=== PATIENT | female | born 1990 | race Caucasian/White ===

== ENCOUNTER 2016-05-14 15:33 | Emergency (ER) | payer OTHER ==
[~2016-05-14 15:33] MED LIST: ANUS2.5C2 TOP; COLA100C PO; DEPO150I IM; DICY10IN2 IM; DICY10SO PO; EFFE150C PO; GABA600T PO; HYDR25TAB PO; MILKSUS PO; MOTR200T44 PO; TYLE325T5 PO; ZANA4CAP PO; ZONI25CA2 PO
[2016-05-14 17:51] LABS: BASO % 0.3 % (0.0-1.0); EOS # 0.2 K/mm3 (0.0-0.50); EOS % 2.1 % (0.0-3.0); LARGE UNSTAINED CELL # 0.1 K/mm3 (0.0-0.4); LARGE UNSTAINED CELL % 0.5 % (0.0-4.0); LYMPH # 0.6 K/mm3 (1.5-6.5); MEAN CORPUSCULAR HEMOGLOBIN 31.6 pg (27.0-33.0); MEAN CORPUSCULAR HGB CONC 34.6 g/dl (32.0-36.5); MEAN CORPUSCULAR VOLUME 91.3 fl (80.0-96.0); MONO # 0.4 K/mm3 (0.0-0.8); MONO % 4.3 % (0.0-5.0); NEUTROPHILS # 8.7 K/mm3 (1.8-7.7); NEUTROPHILS % 86.9 % (36.0-66.0); PLATELET COUNT, AUTOMATED 195 k/mm3 (150-450)
[2016-05-14] MEDS ORDERED: ONDANSETRON 4MG/2ML VIAL (J2405) As Ordered ONE (17:54)
[2016-05-14] MEDS ORDERED: PANTOPRAZOLE 40MG INJ (PROTONIX) (C9113) As Ordered ONE (17:54)
[2016-05-14 18:17] LABS: ALBUMIN 3.8 GM/DL (3.2-5.2); ALKALINE PHOSPHATASE 78 U/L (45-117); ALT/SGPT 27 U/L (12-78); AMYLASE 27 U/L (25-115); ANION GAP 8 MEQ/L (8-16); AST/SGOT 11 U/L (15-37); BILIRUBIN,DIRECT 0.2 MG/DL (0.0-0.2); BILIRUBIN,TOTAL 1.5 MG/DL (0.2-1.0); BLOOD UREA NITROGEN 12 MG/DL (7-18); CARBON DIOXIDE LEVEL 25 MEQ/L (21-32); CHLORIDE LEVEL 108 MEQ/L (98-107); CREATININE FOR GFR 0.85 MG/DL (0.55-1.02); GLOMERULAR FILTRATION RATE > 60.0 (>60); GLUCOSE, FASTING 96 MG/DL (70-105); POTASSIUM SERUM 3.9 MEQ/L (3.5-5.1); SODIUM LEVEL 141 MEQ/L (136-145); TOTAL PROTEIN 7.6 GM/DL (6.4-8.2)
[2016-05-14] MEDS ORDERED: MORPHINE 2 MG/ML 1ML SYRINGE As Ordered ONE (19:13)
[2016-05-14 20:13] LABS: CONTROL LINE UCG INT CTR LINE PRESENT
[2016-05-14] MEDS ORDERED: ONDANSETRON 4 MG ORAL DISINTEGRATING TAB (S0181) As Ordered ONE (20:40)
--- NOTE | 2016-05-14 20:54 | EDDOCDS ---
Physician Documentation [facility] Name: Yolette De Guzman Age: 26 yrs Sex: Female : 1990 Arrival Date: 05/14/2016 Time: 15:33 Bed I4 / M4 Private MD: Disposition: 05/14/16 20:36 Discharged to Home/Self Care. Impression: Nausea and vomiting. - Condition is Stable. - Discharge Instructions: Nausea and Vomiting, Clear Liquid Diet, [id number]-[id number]. - Prescriptions for ZOFRAN ODT 4 mg - dissolve 1 tablet by ORAL route 4 times per day As needed do not chew, do not swallow whole; 10 tablet. - Medication Reconciliation, Local Pharmacy Hours form. - Follow up: Emergency Department; When: Tomorrow; Reason: Recheck today's complaints, Continuance of care. - Problem is new. - Symptoms have improved. Historical: - Allergies: Ibuprofen (Upset stomach); - Home Meds: 1. Depo-Provera 150 mg/mL IM syrg 1 mL every 3 mo (Last dose: 03/13/2016) 2. Effexor XR 75 mg oral cp24 1 cap once daily (Last dose: 05/12/2016) 3. gabapentin 600 mg Oral Tb24 1 tabs three times a day (Last dose: 05/12/2016) 4. hydrochlorothiazide 25 mg Oral tab 1 tab once daily (Last dose: 05/12/2016) - PMHx: Hypertension; Depression; Chronic Back pain; cervical cancer; - PSHx: Cholecystectomy; screws in right ankle; 2 hernia repairs; cone biopsy for cervical cancer; - Social history: Smoking status: Patient uses tobacco products, light tobacco smoker. No barriers to communication noted, The patient speaks fluent Kazakh. - Family history: Not pertinent. - : The pt / caregiver states he / she is not on anticoagulants. Home medication list is obtained from the patient. - Exposure Risk Screening:: None identified. 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 7 in. (170.18 cm) (R); Pain 10/10; 18:53 BP 127 / 69; Pulse 89; Resp 20; Temp 99.7; Pulse Ox 99% ; Pain 8/10; jam1 20:10 BP 113 / 61; Pulse 77; Resp 16; Pulse Ox 99% on R/A; Pain 6/10; ld5 20:44 BP 115 / 54; Pulse 71; Resp 18; Temp 99.8(O); Pulse Ox 96% on R/A; Pain 6/10; kb5 15:36 Body Mass Index 37.59 (108.86 kg, 170.18 cm) lr2 MDM: 17:19 NS 0.9% 1000 ml IV at bolus once ordered. dk1 17:19 Ondansetron 4 mg IVP once ordered. dk1 17:19 Undress patient appropriately for examination ordered. dk1 17:19 pantoprazole 40 mg IV at bolus once ordered. dk1 17:20 Amylase Ordered. EDMS 17:20 Basic Metabolic Profile Ordered. EDMS 17:20 CBC with Diff Ordered. EDMS 17:20 Lipase Ordered. EDMS 17:20 Liver Profile Ordered. EDMS 17:20 Urinalysis Ordered. EDMS 17:20 Urine Test-In Lab Ordered. EDMS 17:20 Urine Culture Ordered. EDMS 17:21 NOTHING BY MOUTH+DIET ordered. EDMS 17:40 Financial registration complete. [facility] 17:49 [facility] Payment Agreement was scanned into Odilo and attached to record. gjb 18:28 Basic Metabolic Profile Reviewed. dk1 18:28 CBC with Diff Reviewed. dk1 18:28 Liver Profile Reviewed. dk1 18:28 Amylase Reviewed. dk1 18:28 Lipase Reviewed. dk1 19:09 morphine 2 mg IVP once ordered. dk1 20:16 Urine Test-In Lab Reviewed. dk1 20:34 Urinalysis Reviewed. dk1 20:34 Urine Test-In Lab Reviewed. dk1 20:37 Ondansetron ODT Oral Disintegrating Tablet 4 mg PO once; dispense to go ordered. dk1 Administered Medications: 18:00 Drug: NS 0.9% 1000 ml [sodium chloride 0.9 % intravenous solution] Route: IV; Rate: jo3 bolus; Site: right antecubital; 20:10 Follow up: IV Status: Completed infusion; IV Intake: 1000ml ld5 18:00 Drug: pantoprazole 40 mg [pantoprazole 40 mg intravenous solution] Route: IV; Rate: jo3 bolus; Site: right antecubital; 18:02 Drug: Ondansetron 4 mg [ondansetron HCl 2 mg/mL intravenous solution (2 mL)] Route: jo3 IVP; Site: right antecubital; 20:10 Follow up: Response: Nausea is decreased ld5 19:17 Drug: morphine 2 mg [morphine 2 mg/mL intravenous cartridge (1 mL)] Route: IVP; Site: jo3 right antecubital; 20:10 Follow up: BP 113 / 61; Pulse 77 bpm; Resp 16 bpm; Pulse Ox 99% RA; Pain 6 Adult; ld5 Response: Confirmed pt not driving.; Pain is decreased 20:50 Drug: Ondansetron ODT 4 mg [ondansetron 4 mg disintegrating tablet (1 tabs)] Route: PO; ld5 20:50 Follow up: Response: Med's dispensed home ld5 Signatures: Dispatcher [employer]Host EDErlinda Parkinson RN RN Arnulfo Brian, PA-C PA-C dk1 Meche Link RN RN jo3 Anabella Graves RN RN [id number] Pam Edwards The chart was reviewed and I authenticate all verbal orders and agree with the evaluation and treatment provided.Attachments: 17:49 [facility] Payment Agreement adria MTDD
--- NOTE | 2016-05-14 20:54 | EDDOCDS ---
Nurse's Notes [facility] Name: Yolette De Guzman Age: 26 yrs Sex: Female : 1990 Arrival Date: 05/14/2016 Time: 15:33 Bed I4 / M4 Private MD: Diagnosis: Nausea and vomiting Presentation: 05/14 15:44 Presenting complaint: Patient states: vomiting and diarrhea since 0200 also having [facility] abdominal pain. Adult Sepsis Screening: The patient does not have new or worsening altered mentation. Patient's respiratory rate is less than 22. Systolic blood pressure is greater than 100. Patient has a qSOFA score of 0- Negative Sepsis Screen. Suicide/Homicide risk assessment- the patient denies having any suicidal and/or homicidal ideations and does not present with any other emotional, behavioral or mental health complaints. 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 Transition of care: patient was not received from another setting of care. 15:44 Acuity: KE Level 3 [facility] 15:44 Method Of Arrival: Walkin/Carried/Asstd [facility] Triage Assessment: 15:48 General: Appears uncomfortable, well nourished, well groomed, Behavior is appropriate [facility] for age, pleasant. Pain: Location: umbilical area, right lower quadrant and left lower quadrant Pain currently is 9 out of 10 on a pain scale. HIV screening NA for this visit Offered previously. Neurological: Level of Consciousness is awake, alert, Oriented to person, place, time. EENT: Oral mucosa is dry. Respiratory: Airway is patent Respiratory effort is even, unlabored, Respiratory pattern is regular, symmetrical. GI: Reports lower abdominal pain, nausea, vomiting, Pain is 9 out of 10 on a pain scale. : Reports vaginal bleeding that is heavy flow. Derm: Skin is dry, Skin is pale, Skin temperature is warm. 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 Depo-Provera 150 mg/mL IM syrg 1 mL every 3 mo (Last dose: 03/13/2016) 2. Effexor XR 75 mg oral cp24 1 cap once daily (Last dose: 05/12/2016) 3. gabapentin 600 mg Oral Tb24 1 tabs three times a day (Last dose: 05/12/2016) 4. hydrochlorothiazide 25 mg Oral tab 1 tab once daily (Last dose: 05/12/2016) - PMHx: Hypertension; Depression; Chronic Back pain; cervical cancer; - PSHx: Cholecystectomy; screws in right ankle; 2 hernia repairs; cone biopsy for cervical cancer; - Social history: Smoking status: Patient uses tobacco products, light tobacco smoker. No barriers to communication noted, The patient speaks fluent [place] Islander. - Family history: Not pertinent. - : The pt / caregiver states he / she is not on anticoagulants. Home medication list is obtained from the patient. - Exposure Risk Screening:: None identified. Screenin:10 Screening information is obtained from the patient. Primary language is [place] Islander. Fall jam1 risk: No risks identified. Assistance ADL's: requires no assistance with activities of daily living. Abuse/DV Screen: The patient / caregiver reports he/she is: not in a situation that causes fear, pain or injury. Nutritional screening: No deficits noted. Exposure Risk Screening: None identified. Advance Directives: Currently, there is no health care proxy. There is no active DNR order. There is no living will. There is no Power of Systems Security Consultant. Advance directive information has not previously been placed in an [facility] medical record. Further advance directive information is declined. home support is adequate. Assessment: 18:09 General: Appears in no apparent distress, comfortable, Behavior is appropriate for age, jo3 cooperative. Neurological: Level of Consciousness is awake, alert, Oriented to person, place, time. Cardiovascular: No deficits noted. Respiratory: No deficits noted. Airway is patent Respiratory effort is even, unlabored. GI: Abdomen is obese, Bowel sounds present X 4 quads. Abd is soft and non tender X 4 quads. Derm: Skin is pink, warm & dry. 18:40 Reassessment: Pt reports that her nausea is resolved but she has a feeling like her jo3 stomach is "spasming". Provider notified.. Respiratory: Airway is patent Respiratory effort is even, unlabored. Derm: Skin is pink, warm & dry. 19:20 Reassessment: Patient appears in no apparent distress at this time. Medication jo3 administered for pain. Will monitor for effectiveness . 20:11 General: Pt reports decreased pain and nausea. Sipping on audelia gaurang and tolerating ld5 well. Will continue to monitor. 20:51 General: Appears in no apparent distress, Behavior is cooperative. Pain: Pain currently ld5 is 6 out of 10 on a pain scale. Neurological: Level of Consciousness is awake, alert. Respiratory: Airway is patent. Vital Signs: 15:36 BP 113 / 76; Pulse 117; Resp 17; Temp 96.4(T); Pulse Ox 100% on R/A; Weight 108.86 kg lr2 (R); Height 5 ft. 7 in. (170.18 cm) (R); Pain 10/10; 18:53 BP 127 / 69; Pulse 89; Resp 20; Temp 99.7; Pulse Ox 99% ; Pain 8/10; jam1 20:10 BP 113 / 61; Pulse 77; Resp 16; Pulse Ox 99% on R/A; Pain 6/10; ld5 20:44 BP 115 / 54; Pulse 71; Resp 18; Temp 99.8(O); Pulse Ox 96% on R/A; Pain 6/10; kb5 15:36 Body Mass Index 37.59 (108.86 kg, 170.18 cm) lr2 Vitals: 15:36 Log In Time: May 14, 2016 at 15:33. lr2 ED Course: 15:34 Patient visited by Anabella Penn. lr2 15:34 Patient moved to Waiting lr2 15:36 Patient moved to Pre RCE lr2 15:45 Triage Initiated kpj 17:04 Patient moved to I4 / M4 [facility] 17:06 Arnulfo Wing PA-C is PHCP. dk1 17:06 Aranza Patterson MD is Attending Physician. dk1 17:06 Patient visited by Arnulfo Wing PA-C. dk1 17:10 Pt greeted and oriented to ED. Patient advised of names of staff involved in care, jam1 location of call will, wait times and NPO status. Patient has correct armband on for positive identification. Bed in low position. Call light in reach. Side rails up X 1. Adult w/ patient. Door closed. 17:49 [facility] Payment Agreement was scanned into Boxee and attached to record. gjb 17:55 Inserted saline lock: 18 gauge in right antecubital area. Labs drawn. (by ED staff). jo3 Sent per order to lab. 18:09 The patient / caregiver is instructed regarding the plan of care and ED course. jo3 18:10 Patient visited by Meche Link,CATE. jo3 19:02 Patient visited by Vinh Harvey PCA. kb5 19:20 Patient visited by Meche Link RN. jo3 19:52 Patient visited by Vinh Harvey PCA. kb5 20:10 Urinalysis Sent. ld5 20:10 Urine Test-In Lab Sent. ld5 20:10 Urine Culture Sent. ld5 20:12 Patient visited by Anabella Graves RN. ld5 20:44 Patient visited by Vinh Harvey PCA. kb5 20:51 Discontinued lock intact, bleeding controlled, pressure dressing applied, No ld5 redness/swelling at site. No procedures done that require assistance. 20:53 Patient visited by Anabella Graves RN. ld5 Administered Medications: 18:00 Drug: NS 0.9% 1000 ml [sodium chloride 0.9 % intravenous solution] Route: IV; Rate: jo3 bolus; Site: right antecubital; 20:10 Follow up: IV Status: Completed infusion; IV Intake: 1000ml ld5 18:00 Drug: pantoprazole 40 mg [pantoprazole 40 mg intravenous solution] Route: IV; Rate: jo3 bolus; Site: right antecubital; 18:02 Drug: Ondansetron 4 mg [ondansetron HCl 2 mg/mL intravenous solution (2 mL)] Route: jo3 IVP; Site: right antecubital; 20:10 Follow up: Response: Nausea is decreased ld5 19:17 Drug: morphine 2 mg [morphine 2 mg/mL intravenous cartridge (1 mL)] Route: IVP; Site: jo3 right antecubital; 20:10 Follow up: BP 113 / 61; Pulse 77 bpm; Resp 16 bpm; Pulse Ox 99% RA; Pain 6/10 Adult; ld5 Response: Confirmed pt not driving.; Pain is decreased 20:50 Drug: Ondansetron ODT 4 mg [ondansetron 4 mg disintegrating tablet (1 tabs)] Route: PO; ld5 20:50 Follow up: Response: Med's dispensed home ld5 Intake: 20:10 IV: 1000.00ml; Total: 1000.00ml. ld5 Order Results: Lab Order: Amylase; SPEC'M 05/14/16 17:36 Test: AMYLASE; Value: 27; Range: 25-115; Units: U/L; Status: F Lab Order: Basic Metabolic Profile; SPEC'M 05/14/16 17:36 Test: GLUCOSE, FASTING; Value: 96; Range: 70-105; Units: MG/DL; Status: F Test: BLOOD UREA NITROGEN; Value: 12; Range: 7-18; Units: MG/DL; Status: F Test: CREATININE FOR GFR; Value: 0.85; Range: 0.55-1.02; Units: MG/DL; Status: F Test: GLOMERULAR FILTRATION RATE; Value: > 60.0; Range: >60; Status: F Test: SODIUM LEVEL; Value: 141; Range: 136-145; Units: MEQ/L; Status: F Test: POTASSIUM SERUM; Value: 3.9; Range: 3.5-5.1; Units: MEQ/L; Status: F Test: CHLORIDE LEVEL; Value: 108; Range: 98-107; Abnormal: Above high normal; Units: MEQ/L; Status: F Test: CARBON DIOXIDE LEVEL; Value: 25; Range: 21-32; Units: MEQ/L; Status: F Test: ANION GAP; Value: 8; Range: 8-16; Units: MEQ/L; Status: F Test: CALCIUM LEVEL; Value: 9.0; Range: 8.5-10.1; Units: MG/DL; Status: F Test Note: ; Units are mL/min/1.73 m2 Chronic Kidney Disease Staging per NKF: Stage I & II GFR >=60 Normal to Mildly Decreased Stage III GFR 30-59 Moderately Decreased Stage IV GFR 15-29 Severely Decreased Stage V GFR <15 Very Little GFR Left ESRD GFR <15 on UPHOLSTERER APPRENTICE Lab Order: CBC with Diff; SPEC'M 05/14/16 17:36 Test: WHITE BLOOD COUNT; Value: 10.0; Range: 4.0-10.0; Units: K/mm3; Status: F Test: RED BLOOD COUNT; Value: 5.14; Range: 4.00-5.40; Units: M/mm3; Status: F Test: HEMOGLOBIN; Value: 16.2; Range: 12.0-16.0; Abnormal: Above high normal; Units: g/dl; Status: F Test: HEMATOCRIT; Value: 46.9; Range: 36.0-47.0; Units: %; Status: F Test: MEAN CORPUSCULAR VOLUME; Value: 91.3; Range: 80.0-96.0; Units: fl; Status: F Test: MEAN CORPUSCULAR HEMOGLOBIN; Value: 31.6; Range: 27.0-33.0; Units: pg; Status: F Test: MEAN CORPUSCULAR HGB CONC; Value: 34.6; Range: 32.0-36.5; Units: g/dl; Status: F Test: RED CELL DISTRIBUTION WIDTH; Value: 13.0; Range: 11.5-14.5; Units: %; Status: F Test: PLATELET COUNT, AUTOMATED; Value: 195; Range: 150-450; Units: k/mm3; Status: F Test: NEUTROPHILS %; Value: 86.9; Range: 36.0-66.0; Abnormal: Above high normal; Units: %; Status: F Test: LYMPH %; Value: 6.0; Range: 24.0-44.0; Abnormal: Below low normal; Units: %; Status: F Test: MONO %; Value: 4.3; Range: 0.0-5.0; Units: %; Status: F Test: EOS %; Value: 2.1; Range: 0.0-3.0; Units: %; Status: F Test: BASO %; Value: 0.3; Range: 0.0-1.0; Units: %; Status: F Test: LARGE UNSTAINED CELL %; Value: 0.5; Range: 0.0-4.0; Units: %; Status: F Test: NEUTROPHILS #; Value: 8.7; Range: 1.8-7.7; Abnormal: Above high normal; Units: K/mm3; Status: F Test: LYMPH #; Value: 0.6; Range: 1.5-6.5; Abnormal: Below low normal; Units: K/mm3; Status: F Test: MONO #; Value: 0.4; Range: 0.0-0.8; Units: K/mm3; Status: F Test: EOS #; Value: 0.2; Range: 0.0-0.50; Units: K/mm3; Status: F Test: BASO #; Value: 0.0; Range: 0.0-0.2; Units: K/mm3; Status: F Test: LARGE UNSTAINED CELL #; Value: 0.1; Range: 0.0-0.4; Units: K/mm3; Status: F Lab Order: Lipase; [facility] 05/14/16 17:36 Test: LIPASE; Value: 75; Range: 73-393; Units: U/L; Status: F Lab Order: Liver Profile; [facility] 05/14/16 17:36 Test: AST/SGOT; Value: 11; Range: 15-37; Abnormal: Below low normal; Units: U/L; Status: F Test: ALT/SGPT; Value: 27; Range: 12-78; Units: U/L; Status: F Test: ALKALINE PHOSPHATASE; Value: 78; Range: 45-117; Units: U/L; Status: F Test: BILIRUBIN,TOTAL; Value: 1.5; Range: 0.2-1.0; Abnormal: Above high normal; Units: MG/DL; Status: F Test: BILIRUBIN,DIRECT; Value: 0.2; Range: 0.0-0.2; Units: MG/DL; Status: F Test: TOTAL PROTEIN; Value: 7.6; Range: 6.4-8.2; Units: GM/DL; Status: F Test: ALBUMIN; Value: 3.8; Range: 3.2-5.2; Units: GM/DL; Status: F Test: ALBUMIN/GLOBULIN RATIO; Value: 1.00; Range: 1.00-1.93; Status: F Lab Order: Urinalysis; [facility] 05/14/16 20:02 Test: APPEARANCE, URINE; Value: CLEAR; Range: CLEAR; Status: F Test: COLOR, URINE; Value: GIANNA; Range: YELLOW; Status: F Test: PH,URINE; Value: 5.0; Range: 5.0-9.0; Units: UNITS; Status: F Test: SPECIFIC GRAVITY URINE AUTO; Value: 1.031; Range: 1.002-1.035; Status: F Test: PROTEIN, URINE AUTO; Value: NEGATIVE; Range: NEGATIVE; Units: mg/dL; Status: F Test: GLUCOSE, URINE (UA) AUTO; Value: NEGATIVE; Range: NEGATIVE; Units: mg/dL; Status: F Test: KETONE, URINE AUTO; Value: TRACE; Range: NEGATIVE; Abnormal: Above high normal; Units: mg/dL; Status: F Test: UROBILINOGEN, URINE AUTO; Value: 0.2; Range: 0.0-2.0; Units: mg/dL; Status: F Test: BILIRUBIN, URINE AUTO; Value: NEGATIVE; Range: NEGATIVE; Status: F Test: NITRITE, URINE AUTO; Value: NEGATIVE; Range: NEGATIVE; Status: F Test: LEUKOCYTE ESTERASE, URINE AUTO; Value: NEGATIVE; Range: NEGATIVE; Status: F Test: BLOOD, URINE BLOOD; Value: NEGATIVE; Range: NEGATIVE; Status: F Test: SPERM, URINE AUTO; Range: NONE; Status: I Test: WBC, URINE AUTO; Value: 2; Range: 0-3; Units: /HPF; Status: F Test: RBC, URINE AUTO; Value: 1; Range: 0-3; Units: /HPF; Status: F Test: BACTERIA, URINE AUTO; Value: NEGATIVE; Range: NEGATIVE; Status: F Test: SQUAMOUS EPITHELIAL CELL UR AU; Value: 2; Range: 0-6; Units: /HPF; Status: F Test: MUCUS, URINE; Value: LARGE; Range: NEGATIVE; Status: F Test: HYALINE CAST, URINE AUTO; Value: 0; Range: 0-1; Units: /LPF; Status: F Lab Order: Urine Test-In Lab; SPEC'M 05/14/16 20:02 Test: URINE PREG TEST; Value: NEGATIVE; Range: NEGATIVE; Status: F Outcome: 20:36 Discharge ordered by Provider. dk1 20:51 Discharge Assessment: Patient awake, alert and oriented x 3. No cognitive and/or ld5 functional deficits noted. Patient verbalized understanding of disposition instructions. patient administered narcotics - yes. Pt provided with safe discharge. The following High Risk Discharge criteria are identified: None. Discharged to home ambulatory. Condition: stable. Discharge instructions given to patient, Instructed on discharge instructions, follow up and referral plans. medication usage, Demonstrated understanding of instructions, medications, Pt was receptive of discharge instructions/ teaching. Prescriptions given X 1. No special radiology studies were completed. Property :Personal belongings accompany Pt. 20:53 Patient left the ED. ld5 Signatures: Erlinda Wilson RN RN kpj Zuleyka, Lori, RN RN khai Zamora Lanny, TILE POWER SHEAR OPERATOR TILE POWER SHEAR OPERATOR jam1 Arnulfo Wing, OMAR PAAshlynC dk1 Meche Link,RN RN jo3 Vinh Harvey, TILE POWER SHEAR OPERATOR TILE POWER SHEAR OPERATOR kb5 Anabella Graves,RN RN ld5 Pam Edwards Laura lr2 MTDD
--- NOTE | 2016-05-16 21:54 | EDDOCDS ---
Physician Documentation [facility] Name: Yolette De Guzman Age: 26 yrs Sex: Female : 1990 Arrival Date: 05/14/2016 Time: 15:33 Bed I4 / M4 Private MD: Disposition: 05/14/16 20:36 Discharged to Home/Self Care. Impression: Nausea and vomiting. - Condition is Stable. - Discharge Instructions: Nausea and Vomiting, Clear Liquid Diet, [id number]-Cxsl. - Prescriptions for ZOFRAN ODT 4 mg - dissolve 1 tablet by ORAL route 4 times per day As needed do not chew, do not swallow whole; 10 tablet. - Medication Reconciliation, Local Pharmacy Hours form. - Follow up: Emergency Department; When: Tomorrow; Reason: Recheck today's complaints, Continuance of care. - Problem is new. - Symptoms have improved. Historical: - Allergies: Ibuprofen (Upset stomach); - Home Meds: 1. Depo-Provera 150 mg/mL IM syrg 1 mL every 3 mo (Last dose: 03/13/2016) 2. Effexor XR 75 mg oral cp24 1 cap once daily (Last dose: 05/12/2016) 3. gabapentin 600 mg Oral Tb24 1 tabs three times a day (Last dose: 05/12/2016) 4. hydrochlorothiazide 25 mg Oral tab 1 tab once daily (Last dose: 05/12/2016) - PMHx: Hypertension; Depression; Chronic Back pain; cervical cancer; - PSHx: Cholecystectomy; screws in right ankle; 2 hernia repairs; cone biopsy for cervical cancer; - Social history: Smoking status: Patient uses tobacco products, light tobacco smoker. No barriers to communication noted, The patient speaks fluent Sammarinese. - Family history: Not pertinent. - : The pt / caregiver states he / she is not on anticoagulants. Home medication list is obtained from the patient. - Exposure Risk Screening:: None identified. 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 7 in. (170.18 cm) (R); Pain 10/10; 18:53 BP 127 / 69; Pulse 89; Resp 20; Temp 99.7; Pulse Ox 99% ; Pain 8/10; jam1 20:10 BP 113 / 61; Pulse 77; Resp 16; Pulse Ox 99% on R/A; Pain 6/10; ld5 20:44 BP 115 / 54; Pulse 71; Resp 18; Temp 99.8(O); Pulse Ox 96% on R/A; Pain 6/10; kb5 15:36 Body Mass Index 37.59 (108.86 kg, 170.18 cm) lr2 MDM: 17:19 NS 0.9% 1000 ml IV at bolus once ordered. dk1 17:19 Ondansetron 4 mg IVP once ordered. dk1 17:19 Undress patient appropriately for examination ordered. dk1 17:19 pantoprazole 40 mg IV at bolus once ordered. dk1 17:20 Amylase Ordered. EDMS 17:20 Basic Metabolic Profile Ordered. EDMS 17:20 CBC with Diff Ordered. EDMS 17:20 Lipase Ordered. EDMS 17:20 Liver Profile Ordered. EDMS 17:20 Urinalysis Ordered. EDMS 17:20 Urine Test-In Lab Ordered. EDMS 17:20 Urine Culture Ordered. EDMS 17:21 NOTHING BY MOUTH+DIET ordered. EDMS 17:40 Financial registration complete. b 17:49 [facility] Payment Agreement was scanned into [employer] and attached to record. gjb 18:28 Basic Metabolic Profile Reviewed. dk1 18:28 CBC with Diff Reviewed. dk1 18:28 Liver Profile Reviewed. dk1 18:28 Amylase Reviewed. dk1 18:28 Lipase Reviewed. dk1 19:09 morphine 2 mg IVP once ordered. dk1 20:16 Urine Test-In Lab Reviewed. dk1 20:34 Urinalysis Reviewed. dk1 20:34 Urine Test-In Lab Reviewed. dk1 20:37 Ondansetron ODT Oral Disintegrating Tablet 4 mg PO once; dispense to go ordered. dk1 22:40 T-Sheet-- Draft Copy was scanned into [employer] and attached to record. klr Administered Medications: 18:00 Drug: NS 0.9% 1000 ml [sodium chloride 0.9 % intravenous solution] Route: IV; Rate: jo3 bolus; Site: right antecubital; 20:10 Follow up: IV Status: Completed infusion; IV Intake: 1000ml ld5 18:00 Drug: pantoprazole 40 mg [pantoprazole 40 mg intravenous solution] Route: IV; Rate: jo3 bolus; Site: right antecubital; 18:02 Drug: Ondansetron 4 mg [ondansetron HCl 2 mg/mL intravenous solution (2 mL)] Route: jo3 IVP; Site: right antecubital; 20:10 Follow up: Response: Nausea is decreased ld5 19:17 Drug: morphine 2 mg [morphine 2 mg/mL intravenous cartridge (1 mL)] Route: IVP; Site: jo3 right antecubital; 20:10 Follow up: BP 113 / 61; Pulse 77 bpm; Resp 16 bpm; Pulse Ox 99% RA; Pain 6/10 Adult; ld5 Response: Confirmed pt not driving.; Pain is decreased 20:50 Drug: Ondansetron ODT 4 mg [ondansetron 4 mg disintegrating tablet (1 tabs)] Route: PO; ld5 20:50 Follow up: Response: Med's dispensed home ld5 Signatures: Dispatcher [employer] EDMS Erlinda Wilson RN RN Arnulfo Brian, PAMarion PAMarion dk1 Meche LinkRN RN jo3 Anabella Graves RN RN [id number] Pam Edwards Kathie klr The chart was reviewed and I authenticate all verbal orders and agree with the evaluation and treatment provided.Attachments: 17:49 [facility] Payment Agreement adria 22:40 T-Sheet-- Draft Copy wilmer Chart Complete MTDD
--- NOTE | 2016-05-16 21:54 | EDDOCDS ---
Nurse's Notes [facility] Name: Yolette De Guzman Age: 26 yrs Sex: Female : 1990 Arrival Date: 05/14/2016 Time: 15:33 Bed I4 / M4 Private MD: Diagnosis: Nausea and vomiting Presentation: 05/14 15:44 Presenting complaint: Patient states: vomiting and diarrhea since 0200 also having [facility] abdominal pain. Adult Sepsis Screening: The patient does not have new or worsening altered mentation. Patient's respiratory rate is less than 22. Systolic blood pressure is greater than 100. Patient has a qSOFA score of 0- Negative Sepsis Screen. Suicide/Homicide risk assessment- the patient denies having any suicidal and/or homicidal ideations and does not present with any other emotional, behavioral or mental health complaints. Status: Patient is not a service support representative or dependent. Transition of care: patient was not received from another setting of care. 15:44 Acuity: KE Level 3 [facility] 15:44 Method Of Arrival: Walkin/Carried/Asstd [facility] Triage Assessment: 15:48 General: Appears uncomfortable, well nourished, well groomed, Behavior is appropriate [facility] for age, pleasant. Pain: Location: umbilical area, right lower quadrant and left lower quadrant Pain currently is 9 out of 10 on a pain scale. HIV screening NA for this visit Offered previously. Neurological: Level of Consciousness is awake, alert, Oriented to person, place, time. EENT: Oral mucosa is dry. Respiratory: Airway is patent Respiratory effort is even, unlabored, Respiratory pattern is regular, symmetrical. GI: Reports lower abdominal pain, nausea, vomiting, Pain is 9 out of 10 on a pain scale. : Reports vaginal bleeding that is heavy flow. Derm: Skin is dry, Skin is pale, Skin temperature is warm. HEAD ROSE GROWER: 15:48 LMP 05/14/2016 [facility] Historical: - Allergies: Ibuprofen (Upset stomach); - Home Meds: 1. Depo-Provera 150 mg/mL IM syrg 1 mL every 3 mo (Last dose: 03/13/2016) 2. Effexor XR 75 mg oral cp24 1 cap once daily (Last dose: 05/12/2016) 3. gabapentin 600 mg Oral Tb24 1 tabs three times a day (Last dose: 05/12/2016) 4. hydrochlorothiazide 25 mg Oral tab 1 tab once daily (Last dose: 05/12/2016) - PMHx: Hypertension; Depression; Chronic Back pain; cervical cancer; - PSHx: Cholecystectomy; screws in right ankle; 2 hernia repairs; cone biopsy for cervical cancer; - Social history: Smoking status: Patient uses tobacco products, light tobacco smoker. No barriers to communication noted, The patient speaks fluent Prydein[place]. - Family history: Not pertinent. - : The pt / caregiver states he / she is not on anticoagulants. Home medication list is obtained from the patient. - Exposure Risk Screening:: None identified. Screenin:10 Screening information is obtained from the patient. Primary language is Prydeinig. Fall jam1 risk: No risks identified. Assistance ADL's: requires no assistance with activities of daily living. Abuse/DV Screen: The patient / caregiver reports he/she is: not in a situation that causes fear, pain or injury. Nutritional screening: No deficits noted. Exposure Risk Screening: None identified. Advance Directives: Currently, there is no health care proxy. There is no active DNR order. There is no living will. There is no Power of Pharmacist Apprentice. Advance directive information has not previously been placed in an [facility] medical record. Further advance directive information is declined. home support is adequate. Assessment: 18:09 General: Appears in no apparent distress, comfortable, Behavior is appropriate for age, jo3 cooperative. Neurological: Level of Consciousness is awake, alert, Oriented to person, place, time. Cardiovascular: No deficits noted. Respiratory: No deficits noted. Airway is patent Respiratory effort is even, unlabored. GI: Abdomen is obese, Bowel sounds present X 4 quads. Abd is soft and non tender X 4 quads. Derm: Skin is pink, warm & dry. 18:40 Reassessment: Pt reports that her nausea is resolved but she has a feeling like her jo3 stomach is "spasming". Provider notified.. Respiratory: Airway is patent Respiratory effort is even, unlabored. Derm: Skin is pink, warm & dry. 19:20 Reassessment: Patient appears in no apparent distress at this time. Medication jo3 administered for pain. Will monitor for effectiveness . 20:11 General: Pt reports decreased pain and nausea. Sipping on audelia gaurang and tolerating ld5 well. Will continue to monitor. 20:51 General: Appears in no apparent distress, Behavior is cooperative. Pain: Pain currently ld5 is 6 out of 10 on a pain scale. Neurological: Level of Consciousness is awake, alert. Respiratory: Airway is patent. Vital Signs: 15:36 BP 113 / 76; Pulse 117; Resp 17; Temp 96.4(T); Pulse Ox 100% on R/A; Weight 108.86 kg lr2 (R); Height 5 ft. 7 in. (170.18 cm) (R); Pain 10/10; 18:53 BP 127 / 69; Pulse 89; Resp 20; Temp 99.7; Pulse Ox 99% ; Pain 8/10; jam1 20:10 BP 113 / 61; Pulse 77; Resp 16; Pulse Ox 99% on R/A; Pain 6/10; ld5 20:44 BP 115 / 54; Pulse 71; Resp 18; Temp 99.8(O); Pulse Ox 96% on R/A; Pain 6/10; kb5 15:36 Body Mass Index 37.59 (108.86 kg, 170.18 cm) lr2 Vitals: 15:36 Log In Time: May 14, 2016 at 15:33. lr2 ED Course: 15:34 Patient visited by Anabella Penn. lr2 15:34 Patient moved to Waiting lr2 15:36 Patient moved to Pre RCE lr2 15:45 Triage Initiated kpj 17:04 Patient moved to I4 / M4 [facility] 17:06 Arnulfo Wing PA-C is PHCP. dk1 17:06 Aranza Patterson MD is Attending Physician. dk1 17:06 Patient visited by Arnulfo Wing PA-C. dk1 17:10 Pt greeted and oriented to ED. Patient advised of names of staff involved in care, jam1 location of call will, wait times and NPO status. Patient has correct armband on for positive identification. Bed in low position. Call light in reach. Side rails up X 1. Adult w/ patient. Door closed. 17:49 [facility] Payment Agreement was scanned into [employer] and attached to record. gjb 17:55 Inserted saline lock: 18 gauge in right antecubital area. Labs drawn. (by ED staff). jo3 Sent per order to lab. 18:09 The patient / caregiver is instructed regarding the plan of care and ED course. jo3 18:10 Patient visited by Meche Link,CATE. jo3 19:02 Patient visited by Vinh Harvey PCA. kb5 19:20 Patient visited by Meche Link,CATE. jo3 19:52 Patient visited by Vinh Harvey PCA. kb5 20:10 Urinalysis Sent. ld5 20:10 Urine Test-In Lab Sent. ld5 20:10 Urine Culture Sent. ld5 20:12 Patient visited by Anabella Graves RN. ld5 20:44 Patient visited by Vinh Harvey PCA. kb5 20:51 Discontinued lock intact, bleeding controlled, pressure dressing applied, No ld5 redness/swelling at site. No procedures done that require assistance. 20:53 Patient visited by Anabella Graves RN. ld5 22:40 T-Sheet-- Draft Copy was scanned into [employer] and attached to record. klr Administered Medications: 18:00 Drug: NS 0.9% 1000 ml [sodium chloride 0.9 % intravenous solution] Route: IV; Rate: jo3 bolus; Site: right antecubital; 20:10 Follow up: IV Status: Completed infusion; IV Intake: 1000ml ld5 18:00 Drug: pantoprazole 40 mg [pantoprazole 40 mg intravenous solution] Route: IV; Rate: jo3 bolus; Site: right antecubital; 18:02 Drug: Ondansetron 4 mg [ondansetron HCl 2 mg/mL intravenous solution (2 mL)] Route: jo3 IVP; Site: right antecubital; 20:10 Follow up: Response: Nausea is decreased ld5 19:17 Drug: morphine 2 mg [morphine 2 mg/mL intravenous cartridge (1 mL)] Route: IVP; Site: jo3 right antecubital; 20:10 Follow up: BP 113 / 61; Pulse 77 bpm; Resp 16 bpm; Pulse Ox 99% RA; Pain 6/10 Adult; ld5 Response: Confirmed pt not driving.; Pain is decreased 20:50 Drug: Ondansetron ODT 4 mg [ondansetron 4 mg disintegrating tablet (1 tabs)] Route: PO; ld5 20:50 Follow up: Response: Med's dispensed home ld5 Intake: 20:10 IV: 1000.00ml; Total: 1000.00ml. ld5 Order Results: Lab Order: Amylase; SPEC'M 05/14/16 17:36 Test: AMYLASE; Value: 27; Range: 25-115; Units: U/L; Status: F Lab Order: Basic Metabolic Profile; SPEC'M 05/14/16 17:36 Test: GLUCOSE, FASTING; Value: 96; Range: 70-105; Units: MG/DL; Status: F Test: BLOOD UREA NITROGEN; Value: 12; Range: 7-18; Units: MG/DL; Status: F Test: CREATININE FOR GFR; Value: 0.85; Range: 0.55-1.02; Units: MG/DL; Status: F Test: GLOMERULAR FILTRATION RATE; Value: > 60.0; Range: >60; Status: F Test: SODIUM LEVEL; Value: 141; Range: 136-145; Units: MEQ/L; Status: F Test: POTASSIUM SERUM; Value: 3.9; Range: 3.5-5.1; Units: MEQ/L; Status: F Test: CHLORIDE LEVEL; Value: 108; Range: 98-107; Abnormal: Above high normal; Units: MEQ/L; Status: F Test: CARBON DIOXIDE LEVEL; Value: 25; Range: 21-32; Units: MEQ/L; Status: F Test: ANION GAP; Value: 8; Range: 8-16; Units: MEQ/L; Status: F Test: CALCIUM LEVEL; Value: 9.0; Range: 8.5-10.1; Units: MG/DL; Status: F Test Note: ; Units are mL/min/1.73 m2 Chronic Kidney Disease Staging per NKF: Stage I & II GFR >=60 Normal to Mildly Decreased Stage III GFR 30-59 Moderately Decreased Stage IV GFR 15-29 Severely Decreased Stage V GFR <15 Very Little GFR Left ESRD GFR <15 on DIRECTOR OF IT OPERATIONS Lab Order: CBC with Diff; SPEC'M 05/14/16 17:36 Test: WHITE BLOOD COUNT; Value: 10.0; Range: 4.0-10.0; Units: K/mm3; Status: F Test: RED BLOOD COUNT; Value: 5.14; Range: 4.00-5.40; Units: M/mm3; Status: F Test: HEMOGLOBIN; Value: 16.2; Range: 12.0-16.0; Abnormal: Above high normal; Units: g/dl; Status: F Test: HEMATOCRIT; Value: 46.9; Range: 36.0-47.0; Units: %; Status: F Test: MEAN CORPUSCULAR VOLUME; Value: 91.3; Range: 80.0-96.0; Units: fl; Status: F Test: MEAN CORPUSCULAR HEMOGLOBIN; Value: 31.6; Range: 27.0-33.0; Units: pg; Status: F Test: MEAN CORPUSCULAR HGB CONC; Value: 34.6; Range: 32.0-36.5; Units: g/dl; Status: F Test: RED CELL DISTRIBUTION WIDTH; Value: 13.0; Range: 11.5-14.5; Units: %; Status: F Test: PLATELET COUNT, AUTOMATED; Value: 195; Range: 150-450; Units: k/mm3; Status: F Test: NEUTROPHILS %; Value: 86.9; Range: 36.0-66.0; Abnormal: Above high normal; Units: %; Status: F Test: LYMPH %; Value: 6.0; Range: 24.0-44.0; Abnormal: Below low normal; Units: %; Status: F Test: MONO %; Value: 4.3; Range: 0.0-5.0; Units: %; Status: F Test: EOS %; Value: 2.1; Range: 0.0-3.0; Units: %; Status: F Test: BASO %; Value: 0.3; Range: 0.0-1.0; Units: %; Status: F Test: LARGE UNSTAINED CELL %; Value: 0.5; Range: 0.0-4.0; Units: %; Status: F Test: NEUTROPHILS #; Value: 8.7; Range: 1.8-7.7; Abnormal: Above high normal; Units: K/mm3; Status: F Test: LYMPH #; Value: 0.6; Range: 1.5-6.5; Abnormal: Below low normal; Units: K/mm3; Status: F Test: MONO #; Value: 0.4; Range: 0.0-0.8; Units: K/mm3; Status: F Test: EOS #; Value: 0.2; Range: 0.0-0.50; Units: K/mm3; Status: F Test: BASO #; Value: 0.0; Range: 0.0-0.2; Units: K/mm3; Status: F Test: LARGE UNSTAINED CELL #; Value: 0.1; Range: 0.0-0.4; Units: K/mm3; Status: F Lab Order: Lipase; [facility]' 05/14/16 17:36 Test: LIPASE; Value: 75; Range: 73-393; Units: U/L; Status: F Lab Order: Liver Profile; [facility]' 05/14/16 17:36 Test: AST/SGOT; Value: 11; Range: 15-37; Abnormal: Below low normal; Units: U/L; Status: F Test: ALT/SGPT; Value: 27; Range: 12-78; Units: U/L; Status: F Test: ALKALINE PHOSPHATASE; Value: 78; Range: 45-117; Units: U/L; Status: F Test: BILIRUBIN,TOTAL; Value: 1.5; Range: 0.2-1.0; Abnormal: Above high normal; Units: MG/DL; Status: F Test: BILIRUBIN,DIRECT; Value: 0.2; Range: 0.0-0.2; Units: MG/DL; Status: F Test: TOTAL PROTEIN; Value: 7.6; Range: 6.4-8.2; Units: GM/DL; Status: F Test: ALBUMIN; Value: 3.8; Range: 3.2-5.2; Units: GM/DL; Status: F Test: ALBUMIN/GLOBULIN RATIO; Value: 1.00; Range: 1.00-1.93; Status: F Lab Order: Urinalysis; SPEC' 05/14/16 20:02 Test: APPEARANCE, URINE; Value: CLEAR; Range: CLEAR; Status: F Test: COLOR, URINE; Value: GIANNA; Range: YELLOW; Status: F Test: PH,URINE; Value: 5.0; Range: 5.0-9.0; Units: UNITS; Status: F Test: SPECIFIC GRAVITY URINE AUTO; Value: 1.031; Range: 1.002-1.035; Status: F Test: PROTEIN, URINE AUTO; Value: NEGATIVE; Range: NEGATIVE; Units: mg/dL; Status: F Test: GLUCOSE, URINE (UA) AUTO; Value: NEGATIVE; Range: NEGATIVE; Units: mg/dL; Status: F Test: KETONE, URINE AUTO; Value: TRACE; Range: NEGATIVE; Abnormal: Above high normal; Units: mg/dL; Status: F Test: UROBILINOGEN, URINE AUTO; Value: 0.2; Range: 0.0-2.0; Units: mg/dL; Status: F Test: BILIRUBIN, URINE AUTO; Value: NEGATIVE; Range: NEGATIVE; Status: F Test: NITRITE, URINE AUTO; Value: NEGATIVE; Range: NEGATIVE; Status: F Test: LEUKOCYTE ESTERASE, URINE AUTO; Value: NEGATIVE; Range: NEGATIVE; Status: F Test: BLOOD, URINE BLOOD; Value: NEGATIVE; Range: NEGATIVE; Status: F Test: SPERM, URINE AUTO; Range: NONE; Status: I Test: WBC, URINE AUTO; Value: 2; Range: 0-3; Units: /HPF; Status: F Test: RBC, URINE AUTO; Value: 1; Range: 0-3; Units: /HPF; Status: F Test: BACTERIA, URINE AUTO; Value: NEGATIVE; Range: NEGATIVE; Status: F Test: SQUAMOUS EPITHELIAL CELL UR AU; Value: 2; Range: 0-6; Units: /HPF; Status: F Test: MUCUS, URINE; Value: LARGE; Range: NEGATIVE; Status: F Test: HYALINE CAST, URINE AUTO; Value: 0; Range: 0-1; Units: /LPF; Status: F Lab Order: Urine Test-In Lab; SPEC'M 05/14/16 20:02 Test: URINE PREG TEST; Value: NEGATIVE; Range: NEGATIVE; Status: F Lab Order: Urine Culture; SPEC'M 05/14/16 20:02 Test: URINE CULTURE; Value: <EXTERNAL COMMENT eCWMed> FULL REPORT IN LAB NOTES (eCW and [employer]).; Status: F Test: URINE CULTURE; Value: URINE CULTURE RESULT NO GROWTH CLINICAL SIGNIFICANCE 1 ORGANISM; Status: F Outcome: 20:36 Discharge ordered by Provider. dk1 20:51 Discharge Assessment: Patient awake, alert and oriented x 3. No cognitive and/or ld5 functional deficits noted. Patient verbalized understanding of disposition instructions. patient administered narcotics - yes. Pt provided with safe discharge. The following High Risk Discharge criteria are identified: None. Discharged to home ambulatory. Condition: stable. Discharge instructions given to patient, Instructed on discharge instructions, follow up and referral plans. medication usage, Demonstrated understanding of instructions, medications, Pt was receptive of discharge instructions/ teaching. Prescriptions given X 1. No special radiology studies were completed. Property :Personal belongings accompany Pt. 20:53 Patient left the ED. ld5 Signatures: Erlinda Wilson, RN RN Lori Hogan RN RN Lanny Vega, TELETYPE OPERATOR TELETYPE OPERATOR jam1 Arnulfo Wing, PA-C PA-C [email or web address] Meche LinkRN RN [email or web address] Vinh Harvey, TELETYPE OPERATOR TELETYPE OPERATOR kb5 Anabella Graves,RN RN ld5 Pam Edwards Kathie klr Ross, Laura lr2 Chart Complete MADALYN
--- NOTE | 2016-05-16 21:54 | EDDOCDS ---
Physician Documentation [facility] Name: Yolette De Guzman Age: 26 yrs Sex: Female : 1990 Arrival Date: 05/14/2016 Time: 15:33 Bed I4 / M4 Private MD: Disposition: 05/14/16 20:36 Discharged to Home/Self Care. Impression: Nausea and vomiting. - Condition is Stable. - Discharge Instructions: Nausea and Vomiting, Clear Liquid Diet, [id number]. - Prescriptions for ZOFRAN ODT 4 mg - dissolve 1 tablet by ORAL route 4 times per day As needed do not chew, do not swallow whole; 10 tablet. - Medication Reconciliation, Local Pharmacy Hours form. - Follow up: Emergency Department; When: Tomorrow; Reason: Recheck today's complaints, Continuance of care. - Problem is new. - Symptoms have improved. Historical: - Allergies: Ibuprofen (Upset stomach); - Home Meds: 1. Depo-Provera 150 mg/mL IM syrg 1 mL every 3 mo (Last dose: 03/13/2016) 2. Effexor XR 75 mg oral cp24 1 cap once daily (Last dose: 05/12/2016) 3. gabapentin 600 mg Oral Tb24 1 tabs three times a day (Last dose: 05/12/2016) 4. hydrochlorothiazide 25 mg Oral tab 1 tab once daily (Last dose: 05/12/2016) - PMHx: Hypertension; Depression; Chronic Back pain; cervical cancer; - PSHx: Cholecystectomy; screws in right ankle; 2 hernia repairs; cone biopsy for cervical cancer; - Social history: Smoking status: Patient uses tobacco products, light tobacco smoker. No barriers to communication noted, The patient speaks fluent Cameroonian. - Family history: Not pertinent. - : The pt / caregiver states he / she is not on anticoagulants. Home medication list is obtained from the patient. - Exposure Risk Screening:: None identified. CLINICAL PROGRAM CONSULTANT: 05/14 15:48 LMP 05/14/2016 [facility] Vital Signs: 15:36 BP 113 / 76; Pulse 117; Resp 17; Temp 96.4(T); Pulse Ox 100% on R/A; Weight 108.86 kg / lr2 240 lbs (R); Height 5 ft. 7 in. (170.18 cm) (R); Pain 10/10; 18:53 BP 127 / 69; Pulse 89; Resp 20; Temp 99.7; Pulse Ox 99% ; Pain 8/10; jam1 20:10 BP 113 / 61; Pulse 77; Resp 16; Pulse Ox 99% on R/A; Pain 6/10; ld5 20:44 BP 115 / 54; Pulse 71; Resp 18; Temp 99.8(O); Pulse Ox 96% on R/A; Pain 6/10; kb5 15:36 Body Mass Index 37.59 (108.86 kg, 170.18 cm) lr2 MDM: 17:19 NS 0.9% 1000 ml IV at bolus once ordered. dk1 17:19 Ondansetron 4 mg IVP once ordered. dk1 17:19 Undress patient appropriately for examination ordered. dk1 17:19 pantoprazole 40 mg IV at bolus once ordered. dk1 17:20 Amylase Ordered. EDMS 17:20 Basic Metabolic Profile Ordered. EDMS 17:20 CBC with Diff Ordered. EDMS 17:20 Lipase Ordered. EDMS 17:20 Liver Profile Ordered. EDMS 17:20 Urinalysis Ordered. EDMS 17:20 Urine Test-In Lab Ordered. EDMS 17:20 Urine Culture Ordered. EDMS 17:21 NOTHING BY MOUTH+DIET ordered. EDMS 17:40 Financial registration complete. b 17:49 [facility] Payment Agreement was scanned into [employer] and attached to record. gjb 18:28 Basic Metabolic Profile Reviewed. dk1 18:28 CBC with Diff Reviewed. dk1 18:28 Liver Profile Reviewed. dk1 18:28 Amylase Reviewed. dk1 18:28 Lipase Reviewed. dk1 19:09 morphine 2 mg IVP once ordered. dk1 20:16 Urine Test-In Lab Reviewed. dk1 20:34 Urinalysis Reviewed. dk1 20:34 Urine Test-In Lab Reviewed. dk1 20:37 Ondansetron ODT Oral Disintegrating Tablet 4 mg PO once; dispense to go ordered. dk1 22:40 T-Sheet-- Draft Copy was scanned into [employer] and attached to record. klr Administered Medications: 18:00 Drug: NS 0.9% 1000 ml [sodium chloride 0.9 % intravenous solution] Route: IV; Rate: jo3 bolus; Site: right antecubital; 20:10 Follow up: IV Status: Completed infusion; IV Intake: 1000ml ld5 18:00 Drug: pantoprazole 40 mg [pantoprazole 40 mg intravenous solution] Route: IV; Rate: jo3 bolus; Site: right antecubital; 18:02 Drug: Ondansetron 4 mg [ondansetron HCl 2 mg/mL intravenous solution (2 mL)] Route: jo3 IVP; Site: right antecubital; 20:10 Follow up: Response: Nausea is decreased ld5 19:17 Drug: morphine 2 mg [morphine 2 mg/mL intravenous cartridge (1 mL)] Route: IVP; Site: jo3 right antecubital; 20:10 Follow up: BP 113 / 61; Pulse 77 bpm; Resp 16 bpm; Pulse Ox 99% RA; Pain 6/10 Adult; ld5 Response: Confirmed pt not driving.; Pain is decreased 20:50 Drug: Ondansetron ODT 4 mg [ondansetron 4 mg disintegrating tablet (1 tabs)] Route: PO; ld5 20:50 Follow up: Response: Med's dispensed home ld5 Signatures: Dispatcher [employer] EDMS Erlinda Wilson RN RN Arnulfo Brian, PAMarion PAMarion dk1 Meche LinkRN RN jo3 Anabella Graves RN RN [email or web address] Pam Edwards Kathie klr The chart was reviewed and I authenticate all verbal orders and agree with the evaluation and treatment provided.Attachments: 17:49 [facility] Payment Agreement adria 22:40 T-Sheet-- Draft Copy wilmer Chart Complete MTDD
== END 2016-05-14 20:53 | disposition home or self-care (01) ==
LOC: M ED 15:33
DX: R11.2 Nausea with vomiting, unspecified (principal); G89.29 Other chronic pain; I10 Essential (primary) hypertension; F32.9 Major depressive disorder, single episode, unspecified; C53.9 Malignant neoplasm of cervix uteri, unspecified; Z90.49 Acquired absence of other specified parts of digestive tract; F17.200 Nicotine dependence, unspecified, uncomplicated; Z79.3 Long term (current) use of hormonal contraceptives; Z79.899 Other long term (current) drug therapy; Z88.6 Allergy status to analgesic agent
CPT/HCPCS: 36415; 80048; 80076; 81001; 82150; 83690; 84703; 85025; 87086; 96361; 96374; 96375; 99284; C9113; J2405

== ENCOUNTER → 2016-09-01 | Outpatient (CLI) | payer OTHER ==
[~2016-09-01] MED LIST changes: -COLA100C PO; +COLA100C3 PO
--- NOTE | 2016-09-01 11:42 | REP ---
MRI LUMBAR SPINE WITHOUT CONTRAST: HISTORY: Radiculitis. COMPARISON: 09/01/2015 Decreased signal intensity on T2-weighted images is present in the L3-4 and L5-S1 intervertebral discs. The discs are decreased in height. These findings are consistent with disc degeneration. There is no disc bulge or herniation at the L1-2, L2-3 and L5-S1 levels. The nerves exit the neural foramina without compression. There is partial sacralization of the L5 vertebral body. A diffuse disc bulge is present at the L4-5 level. There is minimal compression of the thecal sac. There is hypertrophy of the posterior articulating facets. The L4 nerves exit the neural foramina without compression. A diffuse disc bulge and small central disc extrusion are present at the L5-S1 level. There is inferior migration of disc material. There is minimal compression of the thecal sac. There is hypertrophy of the posterior articulating facets. The L5 nerves exit the neural foramina without compression. The conus medullaris is normal in appearance terminating at the level of the T12-L1 intervertebral disc. A hemangioma is present in the L1 vertebral body. Increased signal intensity on T2-weighted images is present in the endplates of the L4 and L5 vertebral bodies. This represents degenerative change. IMPRESSION: 1. Diffuse disc bulge at the L3-4 level with minimal thecal sac compression. 2. Diffuse disc bulge and small central disc extrusion at the L4-5 level with minimal thecal sac compression. There is no change compared to the previous study. Signed by Harry Stephens MD 09/01/2016 11:44 A
== END ==
LOC: M RAD 09:53
PROVIDERS: ATTEND Nurse Practitioner Family
DX: M51.26 Other intervertebral disc displacement, lumbar region (principal); M79.1 Myalgia; M47.816 Spondylosis without myelopathy or radiculopathy, lumbar region; M51.36 Other intervertebral disc degeneration, lumbar region; M54.16 Radiculopathy, lumbar region; M47.817 Spondylosis without myelopathy or radiculopathy, lumbosacral region

== ENCOUNTER 2016-09-18 20:33 | Emergency (ER) | payer OTHER ==
[~2016-09-18] VITALS: Ht 170.2 cm; Wt 113.4 kg
[2016-09-18] MEDS ORDERED: LISI20TA3 PO (20:50)
[2016-09-18] MEDS ORDERED: KETOROLAC 60 MG/2 ML VIAL (J1885) IM ONE (21:45)
[2016-09-18 22:47] VITALS: BP 129/74
== END 2016-09-18 22:48 | disposition home or self-care (01) ==
LOC: M ED 22:15
DX: S86.911A Strain of unspecified muscle(s) and tendon(s) at lower leg level, right leg, initial encounter (principal); S86.912A Strain of unspecified muscle(s) and tendon(s) at lower leg level, left leg, initial encounter; X58.XXXA Exposure to other specified factors, initial encounter; Y93.9 Activity, unspecified; Y99.9 Unspecified external cause status; F32.9 Major depressive disorder, single episode, unspecified; F17.200 Nicotine dependence, unspecified, uncomplicated; Z79.899 Other long term (current) drug therapy; Z87.81 Personal history of (healed) traumatic fracture; Z79.3 Long term (current) use of hormonal contraceptives

== ENCOUNTER → 2017-05-11 | Outpatient (REF) | payer OTHER ==
[2017-05-11 22:02] LABS: ANION GAP 5 MEQ/L (8-16); BLOOD UREA NITROGEN 4 MG/DL (7-18); CALCIUM LEVEL 8.7 MG/DL (8.5-10.1); CARBON DIOXIDE LEVEL 28 MEQ/L (21-32); CHLORIDE LEVEL 108 MEQ/L (98-107); CREATININE FOR GFR 0.69 MG/DL (0.55-1.30); GLOMERULAR FILTRATION RATE > 60.0 (>60); GLUCOSE, FASTING 87 MG/DL (70-100); HCG, SERUM QUANTITATIVE < 1.0 MIU/ML; POTASSIUM SERUM 3.9 MEQ/L (3.5-5.1); SODIUM LEVEL 141 MEQ/L (136-145)
[2017-05-11 22:08] LABS: CHLAMYDIA DNA AMPLIFICATION NEGATIVE (NEGATIVE); GC DNA AMPLIFICATION NEGATIVE (NEGATIVE)
[2017-05-12 15:13] LABS: HIV 1&2 SCREEN CENTAUR NEGATIVE (NEGATIVE)
== END ==
LOC: M LAB REF 16:53
DX: Z13.9 Encounter for screening, unspecified (principal)

== ENCOUNTER 2017-07-26 19:56 | Emergency (ER) | payer OTHER | END 2017-07-26 22:09 | disposition left against medical advice (07) | LOC: M ED 22:09 | DX: R10.9 Unspecified abdominal pain (principal); Z53.21 Procedure and treatment not carried out due to patient leaving prior to being seen by health care provider ==

== ENCOUNTER 2017-08-24 11:08 | Emergency (ER) | payer OTHER ==
[2017-08-24] MEDS: KETOROLAC 60 MG/2 ML VIAL (J1885) IM (13:30)
[2017-08-24] MEDS: ACETAMINOPHEN 325 MG TAB PO (14:04)
== END 2017-08-24 14:50 | disposition home or self-care (01) ==
LOC: M ED 11:08
DX: J03.90 Acute tonsillitis, unspecified (principal); R51 Headache; G89.29 Other chronic pain; F17.200 Nicotine dependence, unspecified, uncomplicated; Z79.899 Other long term (current) drug therapy
CPT/HCPCS: J1885

== ENCOUNTER 2017-12-31 15:25 | Emergency (ER) | payer OTHER ==
[2017-12-31] MEDS: MORPHINE 4 MG/ML 1ML VIAL/SYRINGE (J2270) IV ×2 (16:08→17:26)
[2017-12-31 16:16] LABS: BASO % 0.4 % (0.0-1.0); EOS # 0.1 10^3/uL (0.0-0.50); HEMATOCRIT 41.4 % (36.0-47.0); HEMOGLOBIN 14.5 g/dl (12.0-15.5); IMMATURE GRANULOCYTE % 0.4 % (0-3.0); LYMPH # 1.7 10^3/uL (1.5-6.5); LYMPH % 23.6 % (24.0-44.0); MEAN CORPUSCULAR HEMOGLOBIN 31.2 pg (27.0-33.0); MONO # 0.4 10^3/uL (0.0-0.8); MONO % 5.7 % (0.0-5.0); NEUTROPHILS # 4.8 10^3/uL (1.8-7.7); NEUTROPHILS % 67.9 % (36.0-66.0); PLATELET COUNT, AUTOMATED 208 10^3/uL (150-450); RED BLOOD COUNT 4.65 10^6/uL (4.00-5.40); RED CELL DISTRIBUTION WIDTH 12.6 % (11.5-14.5)
[2017-12-31 16:34] LABS: ANION GAP 6 MEQ/L (8-16); BLOOD UREA NITROGEN 6 MG/DL (7-18); CALCIUM LEVEL 8.5 MG/DL (8.5-10.1); CARBON DIOXIDE LEVEL 27 MEQ/L (21-32); CHLORIDE LEVEL 110 MEQ/L (98-107); CREATININE FOR GFR 0.75 MG/DL (0.55-1.30); GLOMERULAR FILTRATION RATE > 60.0 (>60); GLUCOSE, FASTING 113 MG/DL (70-100); POTASSIUM SERUM 3.6 MEQ/L (3.5-5.1); SODIUM LEVEL 143 MEQ/L (136-145)
== END 2017-12-31 18:13 | disposition home or self-care (01) ==
LOC: M ED 15:25
DX: M51.26 Other intervertebral disc displacement, lumbar region (principal); Z91.81 History of falling; E11.9 Type 2 diabetes mellitus without complications; I10 Essential (primary) hypertension; F17.200 Nicotine dependence, unspecified, uncomplicated; Z88.8 Allergy status to other drugs, medicaments and biological substances; Z79.899 Other long term (current) drug therapy
CPT/HCPCS: J2270

== ENCOUNTER 2018-03-07 14:45 | Emergency (ER) | payer OTHER ==
[2018-03-07] MEDS: ONDANSETRON 4MG/2ML VIAL (J2405) IV (15:15)
[2018-03-07] MEDS: KETOROLAC 30 MG/ML VIAL (J1885) IV (15:15)
[2018-03-07] MEDS: NS 1,000 ML IV (15:15)
[2018-03-07 15:27] LABS: KETONE, URINE AUTO RFX NEGATIVE (NEGATIVE); MUCUS, URINE RFX SMALL (NEGATIVE); NITRITE, URINE AUTO RFX NEGATIVE (NEGATIVE); RBC, URINE AUTO RFX 26 /HPF (0-3); SPECIFIC GRAVITY UR AUTO RFX 1.009 (1.002-1.035); SQUAM EPITHELIAL CELL UR AURFX 2 /HPF (0-6)
[2018-03-07 15:28] LABS: LEUKOCYTE ESTERASE UR AUTO RFX 3+ (NEGATIVE); WBC, URINE AUTO RFX 74 /HPF (0-3)
[2018-03-07 15:41] LABS: BASO % 0.7 % (0.0-1.0); EOS # 0.2 10^3/uL (0.0-0.50); EOS % 2.9 % (0.0-3.0); HEMATOCRIT 41.7 % (36.0-47.0); HEMOGLOBIN 14.6 g/dl (12.0-15.5); IMMATURE GRANULOCYTE % 0.4 % (0-3.0); LYMPH # 1.7 10^3/uL (1.5-4.5); LYMPH % 31.2 % (24.0-44.0); MEAN CORPUSCULAR HEMOGLOBIN 31.3 pg (27.0-33.0); MEAN CORPUSCULAR VOLUME 89.3 fl (80.0-96.0); MONO # 0.5 10^3/uL (0.0-0.8); MONO % 8.1 % (0.0-5.0); NEUTROPHILS # 3.2 10^3/uL (1.8-7.7); NEUTROPHILS % 56.7 % (36.0-66.0); PLATELET COUNT, AUTOMATED 197 10^3/uL (150-450); RED BLOOD COUNT 4.67 10^6/uL (4.00-5.40); RED CELL DISTRIBUTION WIDTH 12.3 % (11.5-14.5); WHITE BLOOD COUNT 5.6 10^3/uL (4.0-10.0)
[2018-03-07 16:14] LABS: ALBUMIN 3.7 GM/DL (3.2-5.2); ALBUMIN/GLOBULIN RATIO 1.23 (1.00-1.93); ALKALINE PHOSPHATASE 66 U/L (45-117); ALT/SGPT 30 U/L (12-78); ANION GAP 6 MEQ/L (8-16); AST/SGOT 18 U/L (7-37); BILIRUBIN,DIRECT 0.1 MG/DL (0.0-0.2); BILIRUBIN,TOTAL 0.7 MG/DL (0.2-1.0); BLOOD UREA NITROGEN 7 MG/DL (7-18); CALCIUM LEVEL 8.8 MG/DL (8.5-10.1); CARBON DIOXIDE LEVEL 27 MEQ/L (21-32); CHLORIDE LEVEL 107 MEQ/L (98-107); CREATININE FOR GFR 0.75 MG/DL (0.55-1.30); GLOMERULAR FILTRATION RATE > 60.0 (>60); GLUCOSE, FASTING 91 MG/DL (70-100); POTASSIUM SERUM 3.9 MEQ/L (3.5-5.1); SODIUM LEVEL 140 MEQ/L (136-145); TOTAL PROTEIN 6.7 GM/DL (6.4-8.2)
== END 2018-03-07 16:57 | disposition home or self-care (01) ==
LOC: M ED 14:45
DX: N10 Acute pyelonephritis (principal); R11.2 Nausea with vomiting, unspecified; R50.9 Fever, unspecified; I10 Essential (primary) hypertension; M54.9 Dorsalgia, unspecified; F17.210 Nicotine dependence, cigarettes, uncomplicated
CPT/HCPCS: J2405

== ENCOUNTER 2018-03-09 12:40 | Emergency (ER) | payer OTHER ==
[2018-03-09 13:07] LABS: GLUCOSE, URINE (UA) MANUAL OBSCURED mg/dL (NEGATIVE); PROTEIN, URINE MANUAL REFLEX OBSCURED mg/dL (NEGATIVE)
[2018-03-09 13:08] LABS: BILIRUBIN, URINE MANUAL OBSCURED (NEGATIVE); BLOOD URINE MANUAL RFX POSITIVE (NEGATIVE); KETONE, URINE MANUAL OBSCURED mg/dL (NEGATIVE); MICROSCOPIC INDICATED? RFX YES (NO); NITRITE, URINE MANUAL RFX OBSCURED (NEGATIVE); UROBILINOGEN, URINE MANUAL OBSCURED mg/dl (NORMAL)
[2018-03-09 13:15] LABS: RBC, URINE 20-30 /hpf (0-3); SQUAMOUS EPITHELIAL CELL URINE MOD AMOUNT /hpf (SMALL AMT); WBC, URINE MAN RFX 40-50 /hpf (0-3)
[2018-03-09 13:16] LABS: BACTERIA, URINE MOD AMOUNT; HYALINE CAST, URINE NONE SEEN /lpf (0-1); MICROSCOPIC EXAM PERFORMED
[2018-03-09 13:21] LABS: BASO % 0.6 % (0.0-1.0); EOS # 0.1 10^3/uL (0.0-0.50); EOS % 2.6 % (0.0-3.0); HEMATOCRIT 41.1 % (36.0-47.0); HEMOGLOBIN 14.1 g/dl (12.0-15.5); IMMATURE GRANULOCYTE % 0.4 % (0-3.0); LYMPH # 1.5 10^3/uL (1.5-4.5); LYMPH % 27.9 % (24.0-44.0); MEAN CORPUSCULAR HGB CONC 34.3 g/dl (32.0-36.5); MEAN CORPUSCULAR VOLUME 90.3 fl (80.0-96.0); MONO # 0.3 10^3/uL (0.0-0.8); MONO % 5.7 % (0.0-5.0); NEUTROPHILS # 3.4 10^3/uL (1.8-7.7); NEUTROPHILS % 62.8 % (36.0-66.0); PLATELET COUNT, AUTOMATED 179 10^3/uL (150-450); RED BLOOD COUNT 4.55 10^6/uL (4.00-5.40); RED CELL DISTRIBUTION WIDTH 12.5 % (11.5-14.5); WHITE BLOOD COUNT 5.4 10^3/uL (4.0-10.0)
[2018-03-09] MEDS: KETOROLAC 30 MG/ML VIAL (J1885) IV (13:38)
[2018-03-09 13:40] LABS: CONTROL LINE HCG INT CTR LINE PRESENT; HCG, SERUM QUALITATIVE NEGATIVE (NEGATIVE)
[2018-03-09 13:42] LABS: ALBUMIN 3.6 GM/DL (3.2-5.2); ALBUMIN/GLOBULIN RATIO 1.24 (1.00-1.93); ALKALINE PHOSPHATASE 63 U/L (45-117); ALT/SGPT 30 U/L (12-78); ANION GAP 7 MEQ/L (8-16); AST/SGOT 10 U/L (7-37); BILIRUBIN,DIRECT 0.1 MG/DL (0.0-0.2); BILIRUBIN,TOTAL 0.8 MG/DL (0.2-1.0); BLOOD UREA NITROGEN 7 MG/DL (7-18); CALCIUM LEVEL 8.7 MG/DL (8.5-10.1); CARBON DIOXIDE LEVEL 25 MEQ/L (21-32); CHLORIDE LEVEL 110 MEQ/L (98-107); CREATININE FOR GFR 0.88 MG/DL (0.55-1.30); GLOMERULAR FILTRATION RATE > 60.0 (>60); GLUCOSE, FASTING 113 MG/DL (70-100); LIPASE 105 U/L (73-393); POTASSIUM SERUM 3.9 MEQ/L (3.5-5.1); SODIUM LEVEL 142 MEQ/L (136-145); TOTAL PROTEIN 6.5 GM/DL (6.4-8.2)
[2018-03-09] MEDS: MORPHINE 2 MG/ML 1ML SYRINGE (J2270) IV (14:27)
[2018-03-09] MEDS: cefTRIAXone SOD 250 MG VIAL (J0696) IM (15:50)
[2018-03-09] MEDS: AZITHROMYCIN 250 MG TAB PO (15:51)
[2018-03-09 17:14] LABS: CHLAMYDIA DNA AMPLIFICATION NEGATIVE (NEGATIVE); GC DNA AMPLIFICATION NEGATIVE (NEGATIVE)
== END 2018-03-09 16:18 | disposition home or self-care (01) ==
LOC: M ED 12:40
DX: R30.0 Dysuria (principal); A59.9 Trichomoniasis, unspecified; E11.9 Type 2 diabetes mellitus without complications; I10 Essential (primary) hypertension; Z79.899 Other long term (current) drug therapy; Z88.8 Allergy status to other drugs, medicaments and biological substances; F17.210 Nicotine dependence, cigarettes, uncomplicated
CPT/HCPCS: J0696

== ENCOUNTER 2018-05-14 11:00 | Emergency (ER) | payer OTHER ==
[~2018-05-14] VITALS: Ht 170.2 cm; Wt 130.0 kg
[~2018-05-14 11:00] MED LIST changes: +CIPR-249 PO; -COLA100C3 PO; +COLA100C5 PO; +DIFL150T PO; -EFFE150C PO; +EFFE150C2 PO; +FLAG500T PO; +FLON1SPR; -GABA600T PO; +GABA600T4 PO; +IBUP80TA PO; +KEFL500C17 PO; +LISI20TA3 PO; +MILK120011 PO; -MILKSUS PO; +PERC5TAB12 PO; +PYRI1TAB5 PO; +VITA50005
[2018-05-14 12:09] LABS: BASO % 0.5 % (0.0-1.0); EOS # 0.1 10^3/uL (0.0-0.50); EOS % 1.5 % (0.0-3.0); HEMATOCRIT 41.2 % (36.0-47.0); HEMOGLOBIN 14.3 g/dl (12.0-15.5); LYMPH # 1.5 10^3/uL (1.5-4.5); LYMPH % 24.5 % (24.0-44.0); MEAN CORPUSCULAR HEMOGLOBIN 30.9 pg (27.0-33.0); MEAN CORPUSCULAR HGB CONC 34.7 g/dl (32.0-36.5); MONO # 0.5 10^3/uL (0.0-0.8); MONO % 7.6 % (0.0-5.0); NEUTROPHILS % 65.7 % (36.0-66.0); PLATELET COUNT, AUTOMATED 186 10^3/uL (150-450); RED BLOOD COUNT 4.63 10^6/uL (4.00-5.40); WHITE BLOOD COUNT 6.1 10^3/uL (4.0-10.0)
[2018-05-14 12:38] LABS: ALBUMIN 3.7 GM/DL (3.2-5.2); ALT/SGPT 35 U/L (12-78); AMYLASE 31 U/L (25-115); BILIRUBIN,DIRECT 0.1 MG/DL (0.0-0.2); BILIRUBIN,TOTAL 0.5 MG/DL (0.2-1.0); BLOOD UREA NITROGEN 7 MG/DL (7-18); CALCIUM LEVEL 8.8 MG/DL (8.5-10.1); CARBON DIOXIDE LEVEL 26 MEQ/L (21-32); CHLORIDE LEVEL 107 MEQ/L (98-107); CREATININE FOR GFR 0.67 MG/DL (0.55-1.30); GLOMERULAR FILTRATION RATE > 60.0 (>60); GLUCOSE, FASTING 94 MG/DL (70-100); LIPASE 159 U/L (73-393); POTASSIUM SERUM 3.9 MEQ/L (3.5-5.1); SODIUM LEVEL 140 MEQ/L (136-145); TOTAL PROTEIN 6.6 GM/DL (6.4-8.2)
[2018-05-14] MEDS ORDERED: ACETAMINOPH W/CODEINE #3 TAB UD PO ONE (13:15)
[2018-05-14] MEDS ORDERED: DICYCLOMINE 10 MG CAP PO ONE (13:15)
[2018-05-14] MEDS ORDERED: ISOVUE-370 76% 100ML VIAL (Q9967) As Ordered ONE (13:21)
[2018-05-14] MEDS ORDERED: metroNIDAZOLE (FLAGYL) 500 MG TAB PO ONE (14:30)
[2018-05-14] MEDS ORDERED: FLAG500T PO (14:34)
--- NOTE | 2018-05-14 14:34 | REP ---
CT abdomen and pelvis with IV but without oral contrast: History: Left upper quadrant pain. Spasm. History of ventral hernia repair. CT contrast dose: 100 mL of intravenous Isovue 370. Comparison CT study March 07, 2018. CT findings: Preliminary digital child psychologist radiograph demonstrates clips in right upper quadrant post cholecystectomy. Umbilical jewelry is seen. Bowel gas pattern is normal. The lung bases are clear on axial CT images. The liver is normal in size and homogeneous in texture. The spleen is somewhat enlarged measuring up to 16.8 cm in greatest diameter. No focal splenic lesion is seen. Spleen size is unchanged from the comparison study. No pancreatic abnormality is observed. Normal adrenal glands are seen bilaterally. The kidneys enhance symmetrically and are morphologically intact. No intrarenal nephrolithiasis is seen. No hydronephrosis is noted. A ventral hernia repair has been performed at and just above the level of the umbilicus. No abdominal wall defect is seen. No uterine or ovarian abnormality is noted. Normal appendix is seen in the right lower quadrant. There are a few descending and sigmoid colon diverticulosis changes. There is no CT evidence of diverticulitis. No abnormal fluid collection is seen. No bony destructive lesion. Impression: Mild splenomegaly unchanged from comparison study. Left colonic diverticulosis without CT evidence of diverticulitis. Otherwise negative CT study abdomen and pelvis. Electronically Signed by Charly Shafer MD 05/14/2018 05:50 P
[2018-05-14] MEDS ORDERED: DICY10CA13 PO (14:35)
[2018-05-14] MEDS ORDERED: MACR100C43 PO (14:35)
[2018-05-14 14:36] VITALS: BP 129/77
[2018-05-14] MEDS ORDERED: DIFL150T PO (14:48)
[2018-05-14 14:53] LABS: CHLAMYDIA DNA AMPLIFICATION NEGATIVE (NEGATIVE); GC DNA AMPLIFICATION NEGATIVE (NEGATIVE)
== END 2018-05-14 14:48 | disposition home or self-care (01) ==
LOC: M ED 11:00
DX: N39.0 Urinary tract infection, site not specified (principal); A59.9 Trichomoniasis, unspecified; M54.9 Dorsalgia, unspecified; Z88.8 Allergy status to other drugs, medicaments and biological substances; Z79.899 Other long term (current) drug therapy
CPT/HCPCS: 74177; 80048; 80076; 81001; 81025; 82150; 83690; 85025; 87086; 87210; 87491; 87591; 99284; Q9967

== ENCOUNTER → 2018-08-30 | Outpatient (CLI) | payer OTHER ==
[~2018-08-30] MED LIST changes: +DICY10CA13 PO; +HYDR-2541 PO; -HYDR25TAB PO; +MACR100C43 PO
[2018-08-30 14:58] LABS: BASO % 0.6 % (0.0-1.0); EOS # 0.1 10^3/uL (0.0-0.50); EOS % 0.8 % (0.0-3.0); HEMATOCRIT 43.5 % (36.0-47.0); HEMOGLOBIN 14.9 g/dl (12.0-15.5); LYMPH # 2.2 10^3/uL (1.5-4.5); LYMPH % 30.3 % (24.0-44.0); MEAN CORPUSCULAR HEMOGLOBIN 31.6 pg (27.0-33.0); MEAN CORPUSCULAR HGB CONC 34.3 g/dl (32.0-36.5); MEAN CORPUSCULAR VOLUME 92.2 fl (80.0-96.0); MONO # 0.5 10^3/uL (0.0-0.8); MONO % 7.4 % (0.0-5.0); NEUTROPHILS # 4.3 10^3/uL (1.8-7.7); NEUTROPHILS % 60.5 % (36.0-66.0); PLATELET COUNT, AUTOMATED 216 10^3/uL (150-450); RED BLOOD COUNT 4.72 10^6/uL (4.00-5.40); WHITE BLOOD COUNT 7.1 10^3/uL (4.0-10.0)
[2018-08-30 15:05] LABS: APPEARANCE, URINE CLEAR (CLEAR); BACTERIA, URINE AUTO 2+ (NEGATIVE); BILIRUBIN, URINE AUTO NEGATIVE (NEGATIVE); BLOOD, URINE BLOOD NEGATIVE (NEGATIVE); COLOR, URINE YELLOW (YELLOW); GLUCOSE, URINE (UA) AUTO NEGATIVE (NEGATIVE); KETONE, URINE AUTO NEGATIVE (NEGATIVE); LEUKOCYTE ESTERASE, URINE AUTO NEGATIVE (NEGATIVE); MUCUS, URINE SMALL (NEGATIVE); NITRITE, URINE AUTO NEGATIVE (NEGATIVE); PROTEIN, URINE AUTO NEGATIVE (NEGATIVE); RBC, URINE AUTO 3 /HPF (0-3); SPECIFIC GRAVITY URINE AUTO 1.011 (1.002-1.035); SQUAMOUS EPITHELIAL CELL UR AU 0 /HPF (0-6); UROBILINOGEN, URINE AUTO 0.2 mg/dL (0.0-2.0); WBC, URINE AUTO 1 /HPF (0-3)
[2018-08-30 15:28] LABS: ALBUMIN 3.7 GM/DL (3.2-5.2); ALT/SGPT 33 U/L (12-78); BILIRUBIN,TOTAL 0.7 MG/DL (0.2-1.0); BLOOD UREA NITROGEN 5 MG/DL (7-18); CALCIUM LEVEL 8.5 MG/DL (8.5-10.1); CARBON DIOXIDE LEVEL 27 MEQ/L (21-32); CHLORIDE LEVEL 108 MEQ/L (98-107); CREATININE FOR GFR 0.73 MG/DL (0.55-1.30); GLOMERULAR FILTRATION RATE > 60.0 (>60); GLUCOSE, FASTING 76 MG/DL (70-100); POTASSIUM SERUM 3.6 MEQ/L (3.5-5.1); SODIUM LEVEL 142 MEQ/L (136-145); TOTAL PROTEIN 7.1 GM/DL (6.4-8.2)
== END ==
LOC: M LAB 13:04
PROVIDERS: ATTEND Nurse Practitioner Family
DX: Z13.9 Encounter for screening, unspecified (principal); E66.9 Obesity, unspecified

== ENCOUNTER → 2018-08-30 | Outpatient (CLI) | payer OTHER ==
[2018-09-06 14:19] LABS: URINE COTININE LEVEL 15 ng/mL (.); URINE NICOTINE LEVEL None Detected (.)
== END ==
LOC: M LAB 13:08
PROVIDERS: ATTEND Surgery
DX: Z01.812 Encounter for preprocedural laboratory examination (principal); E66.01 Morbid (severe) obesity due to excess calories; F17.210 Nicotine dependence, cigarettes, uncomplicated; F18.10 Inhalant abuse, uncomplicated

== ENCOUNTER → 2018-09-07 | Outpatient (REF) | payer OTHER ==
[2018-09-07 18:58] LABS: AMORPHOUS SEDIMENT SMALL (NEGATIVE); APPEARANCE, URINE HAZY (CLEAR); BACTERIA, URINE AUTO 1+ (NEGATIVE); BILIRUBIN, URINE AUTO NEGATIVE (NEGATIVE); BLOOD, URINE BLOOD NEGATIVE (NEGATIVE); COLOR, URINE YELLOW (YELLOW); GLUCOSE, URINE (UA) AUTO NEGATIVE (NEGATIVE); KETONE, URINE AUTO NEGATIVE (NEGATIVE); LEUKOCYTE ESTERASE, URINE AUTO 1+ (NEGATIVE); MUCUS, URINE SMALL (NEGATIVE); NITRITE, URINE AUTO POSITIVE (NEGATIVE); PROTEIN, URINE AUTO NEGATIVE (NEGATIVE); RBC, URINE AUTO 1 /HPF (0-3); SPECIFIC GRAVITY URINE AUTO 1.014 (1.002-1.035); SQUAMOUS EPITHELIAL CELL UR AU 5 /HPF (0-6); WBC, URINE AUTO 4 /HPF (0-3)
[2018-09-07 20:03] LABS: CHLAMYDIA DNA AMPLIFICATION NEGATIVE (NEGATIVE); GC DNA AMPLIFICATION NEGATIVE (NEGATIVE)
== END ==
LOC: M LAB REF 17:23
PROVIDERS: ATTEND Physician Assistant Medical
DX: N39.0 Urinary tract infection, site not specified (principal); Z11.3 Encounter for screening for infections with a predominantly sexual mode of transmission

== ENCOUNTER 2018-10-22 14:55 | Emergency (ER) | payer MEDICAID, OTHER ==
[~2018-10-22] VITALS: Ht 170.2 cm; Wt 126.8 kg
[2018-10-22] MEDS ORDERED: LISI-538 (16:12)
[2018-10-22] MEDS ORDERED: ENOX40IN3 (16:12)
[2018-10-22] MEDS ORDERED: ARIP1TAB (16:12)
[2018-10-22] MEDS ORDERED: TIZA2TA (16:12)
[2018-10-22] MEDS ORDERED: OMEP-221 (16:12)
[2018-10-22] MEDS ORDERED: ONDA4TAB6 (16:12)
[2018-10-22 17:22] LABS: BASO % 0.3 % (0.0-1.0); EOS # 0.1 10^3/uL (0.0-0.50); EOS % 1.3 % (0.0-3.0); HEMATOCRIT 40.6 % (36.0-47.0); HEMOGLOBIN 14.3 g/dl (12.0-15.5); LYMPH # 1.6 10^3/uL (1.5-4.5); LYMPH % 22.4 % (24.0-44.0); MEAN CORPUSCULAR HEMOGLOBIN 32.1 pg (27.0-33.0); MEAN CORPUSCULAR HGB CONC 35.2 g/dl (32.0-36.5); MONO # 0.4 10^3/uL (0.0-0.8); MONO % 5.6 % (0.0-5.0); NEUTROPHILS # 4.9 10^3/uL (1.8-7.7); NEUTROPHILS % 69.8 % (36.0-66.0); PLATELET COUNT, AUTOMATED 178 10^3/uL (150-450); RED BLOOD COUNT 4.46 10^6/uL (4.00-5.40)
[2018-10-22] MEDS: GASTROGRAFIN SOLUTION 30ML PO SCH ×2 (17:22→17:35)
[2018-10-22 17:46] LABS: ALBUMIN 3.9 GM/DL (3.2-5.2); ALT/SGPT 58 U/L (12-78); BILIRUBIN,DIRECT 0.2 MG/DL (0.0-0.2); BLOOD UREA NITROGEN 11 MG/DL (7-18); CALCIUM LEVEL 9.4 MG/DL (8.5-10.1); CARBON DIOXIDE LEVEL 25 MEQ/L (21-32); CHLORIDE LEVEL 105 MEQ/L (98-107); CREATININE FOR GFR 0.79 MG/DL (0.55-1.30); GLOMERULAR FILTRATION RATE > 60.0 (>60); GLUCOSE, FASTING 68 MG/DL (70-100); POTASSIUM SERUM 3.9 MEQ/L (3.5-5.1); SODIUM LEVEL 138 MEQ/L (136-145); TOTAL PROTEIN 7.7 GM/DL (6.4-8.2)
[2018-10-22] MEDS ORDERED: ISOVUE-370 76% 100ML VIAL (Q9967) As Ordered ONE (18:03)
--- NOTE | 2018-10-22 19:39 | REPVR ---
EXAM: CT Angiography Chest With Contrast EXAM DATE/TIME: 10/22/2018 7:09 PM CLINICAL HISTORY: 28 years old, female; Chest pain; Prior surgery; Additional info: SOB; S/P gastric bypass surgery 10/18/18 TECHNIQUE: Imaging protocol: Axial computed tomographic angiography images of the chest with intravenous contrast using CT angiography protocol. Coronal and sagittal reformatted images were created and reviewed. 3D rendering: MIP reconstructed images were created and reviewed. Radiation optimization: All CT scans at this facility use at least one of these dose optimization techniques: automated exposure control; mA and/or kV adjustment per patient size (includes targeted exams where dose is matched to clinical indication); or iterative reconstruction. Contrast material: ISOVUE 370; Contrast volume: 100 ml; Contrast route: IV; COMPARISON: No relevant prior studies available. FINDINGS: Pulmonary arteries: There are no filling defects in the pulmonary arterial tree to suggest a pulmonary embolus. Aorta: The thoracic aorta is intact without aneurysm or dissection. Lungs: The lungs are clear. Pleural space: There are no pleural effusions. Heart: Heart size is normal. Mediastinum: The esophagus is normal. Gallbladder and bile ducts: Cholecystectomy. Spleen: The visualized portion of the spleen is enlarged. It is 17.6 cm in AP dimension. Stomach and bowel: The recent Gabrielle-en-Y gastric bypass is partially visualized. No postoperative complication is identified. Lymph nodes: Unremarkable. No enlarged lymph nodes. Bones/joints: Unremarkable. No acute fracture. Slight S-shaped thoracic scoliosis. Soft tissues: Unremarkable. Other findings: Steatosis. IMPRESSION: 1. No pulmonary embolus. 2. The lungs are clear. 3. The recent Gabrielle-en-Y gastric bypass is partially visualized. No postoperative complication is identified. 4. Moderate splenomegaly. Electronically signed by: Wing Westbrook On 10/22/2018 19:38:54 PM
--- NOTE | 2018-10-22 19:52 | REPVR ---
EXAM: CT Abdomen and Pelvis With Contrast EXAM DATE/TIME: 10/22/2018 7:09 PM CLINICAL HISTORY: 28 years old, female; Abdominal pain; Generalized; Prior surgery; Surgery date: 3-7 days post-operative; Additional info: Epigastric pain; S/P gastric bypass surgery 10/18/18 TECHNIQUE: Imaging protocol: Axial computed tomography images of the abdomen and pelvis with intravenous contrast. Coronal and sagittal reformatted images were created and reviewed. Radiation optimization: All CT scans at this facility use at least one of these dose optimization techniques: automated exposure control; mA and/or kV adjustment per patient size (includes targeted exams where dose is matched to clinical indication); or iterative reconstruction. Contrast material: ISOVUE 370; Contrast volume: 100 ml; Contrast route: IV; COMPARISON: CT ABD/PEL W/IV CONTRAST ONLY 05/14/2018 1:17 PM FINDINGS: Limitations: Although a small amount of oral contrast was administered, it is only in the distal ilium and proximal colon. Large body habitus. Lungs: The visualized lung bases are clear. Liver: Diffusely moderately diminished hepatic attenuation is consistent with steatosis. Gallbladder and bile ducts: Cholecystectomy. Pancreas: The pancreas is normal. Spleen: Moderate splenomegaly. Adrenals: The adrenal glands are normal. Kidneys and ureters: Normal. No hydronephrosis. Stomach and bowel: Recent antecolic josefina-en-Y gastric bypass. No postoperative complication is identified. The excluded stomach is collapsed. Small bowel loops are normal in caliber. Colon is unremarkable. Appendix: The appendix is normal in caliber without surrounding inflammation. Intraperitoneal space: No free air or free fluid in the abdomen or pelvis. Vasculature: Normal. No abdominal aortic aneurysm. Lymph nodes: Normal. No enlarged lymph nodes. Bladder: Unremarkable as visualized. Reproductive: The uterus is normal and anteverted. The ovaries are normal. Bones/joints: A transitional vertebra at the lumbosacral junction is considered to be a partially sacralized L5 for purposes of this report. The L5-S1 disc is severely narrowed and degenerated. A mild posterior disc/osteophyte complex causes mild central canal stenosis. Soft tissues: Morbid obesity. Edema in the subcutaneous fat of the left anterior abdominal wall defect is expected postoperative change. IMPRESSION: 1. Recent antecolic josefina-en-Y gastric bypass. No postoperative complication is identified. 2. Moderate steatosis. 3. Cholecystectomy. 4. Moderate splenomegaly. 5. Partially sacralized L5. Degenerative L5-S1 disc causes mild central canal stenosis. Electronically signed by: Wing Westbrook On 10/22/2018 19:52:34 PM
[2018-10-22 20:27] VITALS: BP 132/72
--- NOTE | 2018-10-22 20:54 | ECGEPIP ---
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 Order Number: [id number] Reading MD: Arnulfo Garcia Measurements Intervals Dix Rate: 80 P: 12 WY: 127 QRS: 29 QRSD: 87 T: 39 QT: 368 QTc: 425 Interpretive Statements SINUS RHYTHM Nonspecific ST-T wave abnormalities Comparison tracing not on file Electronically Signed on 10-22-2018 20:54:01 EDT by Arnulfo Garcia
--- NOTE | 2018-10-24 13:48 | ED PDOC ---
Post-Departure Follow-Up graham dawkins faxed formal report of cta chest for fu Bernie Rae MD Oct 24, 2018 13:48
== END 2018-10-22 20:30 | disposition home or self-care (01) ==
LOC: M ED 14:55
DX: G89.18 Other acute postprocedural pain (principal); R50.9 Fever, unspecified; Z98.84 Bariatric surgery status; Z79.899 Other long term (current) drug therapy; Z88.8 Allergy status to other drugs, medicaments and biological substances
CPT/HCPCS: 36415; 71275; 74177; 80048; 80076; 85025; 93005; 99284; Q9963; Q9967

== ENCOUNTER → 2018-11-13 | Outpatient (CLI) | payer OTHER ==
[~2018-11-13] MED LIST changes: +ARIP1TAB; +ENOX40IN3; +LISI-538; +LISI20TA20 PO; -LISI20TA3 PO; +OMEP-221; +ONDA4TAB6; +TIZA2TA
[2018-11-13 11:58] LABS: BASO % 0.5 % (0.0-1.0); EOS # 0.1 10^3/uL (0.0-0.50); EOS % 1.4 % (0.0-3.0); HEMATOCRIT 41.8 % (36.0-47.0); LYMPH # 1.1 10^3/uL (1.5-4.5); LYMPH % 26.1 % (24.0-44.0); MEAN CORPUSCULAR HEMOGLOBIN 31.7 pg (27.0-33.0); MEAN CORPUSCULAR HGB CONC 33.5 g/dl (32.0-36.5); MEAN CORPUSCULAR VOLUME 94.6 fl (80.0-96.0); MONO # 0.3 10^3/uL (0.0-0.8); MONO % 7.7 % (0.0-5.0); NEUTROPHILS # 2.7 10^3/uL (1.8-7.7); NEUTROPHILS % 64.1 % (36.0-66.0); PLATELET COUNT, AUTOMATED 149 10^3/uL (150-450); RED BLOOD COUNT 4.42 10^6/uL (4.00-5.40); WHITE BLOOD COUNT 4.1 10^3/uL (4.0-10.0)
[2018-11-13 11:59] LABS: HEMATOCRIT 41.8 % (36.0-47.0)
[2018-11-13 12:12] LABS: ALBUMIN 3.8 GM/DL (3.2-5.2); ALT/SGPT 58 U/L (12-78); BILIRUBIN,TOTAL 0.8 MG/DL (0.2-1.0); BLOOD UREA NITROGEN 8 MG/DL (7-18); CALCIUM LEVEL 9.1 MG/DL (8.5-10.1); CARBON DIOXIDE LEVEL 25 MEQ/L (21-32); CHLORIDE LEVEL 112 MEQ/L (98-107); CREATININE FOR GFR 0.74 MG/DL (0.55-1.30); FERRITIN 108 NG/ML (8-252); GLOMERULAR FILTRATION RATE > 60.0 (>60); GLUCOSE, FASTING 81 MG/DL (70-100); IRON (FE) 61 UG/DL (50-170); MAGNESIUM LEVEL 2.2 MG/DL (1.8-2.4); PERCENT SATURATION 25.7 % (13.2-45.0); PHOSPHORUS LEVEL 3.5 MG/DL (2.5-4.9); POTASSIUM SERUM 4.2 MEQ/L (3.5-5.1); SODIUM LEVEL 144 MEQ/L (136-145); TOTAL IRON BINDING CAPACITY 237 UG/DL (250-450); TOTAL PROTEIN 6.4 GM/DL (6.4-8.2)
[2018-11-13 12:19] LABS: VITAMIN B12 LEVEL > 2000 PG/ML (247-911)
[2018-11-13 12:24] LABS: HEMOGLOBIN A1c 4.5 %
== END ==
LOC: M LAB 10:55
PROVIDERS: ATTEND Surgery
DX: K91.2 Postsurgical malabsorption, not elsewhere classified (principal); E55.9 Vitamin D deficiency, unspecified; Z98.84 Bariatric surgery status

== ENCOUNTER → 2019-01-21 | Outpatient (REF) | payer OTHER, MEDICAID ==
[2019-01-21 18:21] LABS: APPEARANCE, URINE HAZY (CLEAR); BACTERIA, URINE AUTO NEGATIVE (NEGATIVE); BILIRUBIN, URINE AUTO NEGATIVE (NEGATIVE); BLOOD, URINE BLOOD NEGATIVE (NEGATIVE); COLOR, URINE YELLOW (YELLOW); GLUCOSE, URINE (UA) AUTO NEGATIVE (NEGATIVE); KETONE, URINE AUTO TRACE mg/dL (NEGATIVE); LEUKOCYTE ESTERASE, URINE AUTO NEGATIVE (NEGATIVE); MUCUS, URINE SMALL (NEGATIVE); NITRITE, URINE AUTO NEGATIVE (NEGATIVE); PROTEIN, URINE AUTO NEGATIVE (NEGATIVE); RBC, URINE AUTO 1 /HPF (0-3); SPECIFIC GRAVITY URINE AUTO 1.015 (1.002-1.035); SQUAMOUS EPITHELIAL CELL UR AU 1 /HPF (0-6); WBC, URINE AUTO 3 /HPF (0-3)
[2019-01-21 21:03] LABS: CHLAMYDIA DNA AMPLIFICATION NEGATIVE (NEGATIVE); GC DNA AMPLIFICATION NEGATIVE (NEGATIVE)
== END ==
LOC: M LAB REF 16:37
PROVIDERS: ATTEND Physician Assistant
DX: N39.0 Urinary tract infection, site not specified (principal)

== ENCOUNTER → 2019-01-29 | Outpatient (REF) | payer OTHER, MEDICAID ==
[2019-01-29 18:24] LABS: APPEARANCE, URINE HAZY (CLEAR); BACTERIA, URINE AUTO 1+ (NEGATIVE); BILIRUBIN, URINE AUTO NEGATIVE (NEGATIVE); BLOOD, URINE BLOOD NEGATIVE (NEGATIVE); CALCIUM OXALATE CRYSTALS SMALL; COLOR, URINE YELLOW (YELLOW); GLUCOSE, URINE (UA) AUTO NEGATIVE (NEGATIVE); KETONE, URINE AUTO TRACE mg/dL (NEGATIVE); LEUKOCYTE ESTERASE, URINE AUTO 1+ (NEGATIVE); MUCUS, URINE MODERATE (NEGATIVE); NITRITE, URINE AUTO NEGATIVE (NEGATIVE); PROTEIN, URINE AUTO NEGATIVE (NEGATIVE); RBC, URINE AUTO 7 /HPF (0-3); SPECIFIC GRAVITY URINE AUTO 1.019 (1.002-1.035); SQUAMOUS EPITHELIAL CELL UR AU 1 /HPF (0-6); UROBILINOGEN, URINE AUTO 0.2 mg/dL (0.0-2.0); WBC, URINE AUTO 25 /HPF (0-3)
[2019-01-29 19:20] LABS: CHLAMYDIA DNA AMPLIFICATION NEGATIVE (NEGATIVE); GC DNA AMPLIFICATION NEGATIVE (NEGATIVE)
== END ==
LOC: M LAB REF 16:28
PROVIDERS: ATTEND Family Medicine
DX: S30.202A Contusion of unspecified external genital organ, female, initial encounter (principal); X58.XXXA Exposure to other specified factors, initial encounter; Y92.9 Unspecified place or not applicable

== ENCOUNTER → 2019-02-15 | Outpatient (CLI) | payer OTHER ==
--- NOTE | 2019-02-15 11:28 | REP ---
CT ABDOMEN AND PELVIS WITHOUT IV OR ORAL CONTRAST: HISTORY: Abdomen pain. 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 She is status post gastric bypass. Post cholecystectomy. Comparison CT study October 22, 2018. CT FINDINGS: Preliminary digital director of cardiology radiograph shows clips in the right upper quadrant post cholecystectomy. The lung bases are clear. The liver and the spleen are normal in size homogeneous in texture. Gastric bypass sutures are noted in the left upper abdomen. No adrenal lesion is seen. There is no evidence of hydronephrosis or intrarenal calculus. No retroperitoneal mass or adenopathy is seen. Normal appendix is noted in the right lower quadrant. No uterine or ovarian abnormality is appreciated. Urinary bladder is intact. No abdominal wall defect is seen. In the periumbilical region, there is a disc-shaped area of high attenuation fibrosis immediately superficial to the anterior abdominal wall which is presumably postoperative fibrosis. It is entirely unchanged from the March 18, [address] study. No bony destructive lesion is seen. IMPRESSION: Status post cholecystectomy and gastric bypass surgery. No acute abdominal or pelvic abnormality. Normal appendix seen. Electronically Signed by Charly Shafer MD 02/15/2019 01:53 P
== END ==
LOC: M RAD 09:37
PROVIDERS: ATTEND Surgery
DX: R10.9 Unspecified abdominal pain (principal); Z98.84 Bariatric surgery status; Z90.49 Acquired absence of other specified parts of digestive tract

== ENCOUNTER 2019-03-26 09:05 | Emergency (ER) | payer MEDICAID, OTHER ==
[~2019-03-26] VITALS: Ht 170.2 cm; Wt 93.2 kg
[2019-03-26] MEDS ORDERED: ACETAMINOPHEN 500 MG TAB PO ONE (09:30)
--- NOTE | 2019-03-26 10:26 | REP ---
THORACIC SPINE, AP AND LATERAL: Three AP and lateral and lateral views of the thoracic spine were performed. There is no compression fracture. There is no malalignment. There is mild curvature toward the right. The posterior elements are intact. IMPRESSION: No acute fracture or dislocation. Electronically Signed by Kosta Bob MD 03/26/2019 04:02 P
--- NOTE | 2019-03-26 10:26 | REP ---
PELVIS AND LEFT HIP: AP view of the pelvis and two views of the left hip are performed. There is no acute fracture, dislocation, or intrinsic bone disease. IMPRESSION: No fracture or dislocation. Electronically Signed by Kosta Bob MD 03/26/2019 04:02 P
--- NOTE | 2019-03-26 10:29 | REP ---
Left wrist series: Four views. History: Trauma. Findings: Four views of the left wrist demonstrate no evidence of fracture or subluxation. Impression: Negative left wrist radiographs. Electronically Signed by Charly Shafer MD 03/26/2019 10:20 A
--- NOTE | 2019-03-26 10:35 | REP ---
LEFT SHOULDER, THREE VIEWS: SHOULDER: There is no evidence of an acute fracture, dislocation or intrinsic bone disease. IMPRESSION: No fracture or dislocation. Electronically Signed by Kosta Bob MD 03/26/2019 04:02 P
--- NOTE | 2019-03-26 10:42 | REP ---
LUMBOSACRAL SPINE: Five views of the lumbosacral spine performed. There is partial sacralization of L5 with hypoplastic 12th ribs. No fracture or dislocation is seen. There is normal lumbar lordosis. There is mild to moderate disc space narrowing at L4-5 subchondral sclerosis and mild spurring, as well as sclerosis at the facets of L4-5. Posterior elements are intact with slight curvature toward the left. IMPRESSION: Partial sacralization of L5 with mild degenerative changes. No fracture or dislocation. Electronically Signed by Kosta Bob MD 03/26/2019 04:04 P
[2019-03-26 11:05] VITALS: BP 104/62
== END 2019-03-26 11:15 | disposition home or self-care (01) ==
LOC: EDBD 09:05 → M ED 09:05
DX: T14.8XXA Other injury of unspecified body region, initial encounter (principal); W00.9XXA Unspecified fall due to ice and snow, initial encounter; Y92.099 Unspecified place in other non-institutional residence as the place of occurrence of the external cause; Y93.89 Activity, other specified; Y99.9 Unspecified external cause status; M51.86 Other intervertebral disc disorders, lumbar region; E11.9 Type 2 diabetes mellitus without complications; I10 Essential (primary) hypertension; F43.10 Post-traumatic stress disorder, unspecified; Z85.41 Personal history of malignant neoplasm of cervix uteri; Z79.899 Other long term (current) drug therapy; Z88.6 Allergy status to analgesic agent

== ENCOUNTER → 2019-05-23 | Outpatient (REF) | payer OTHER, MEDICAID ==
[~2019-05-23] MED LIST changes: +ZONI25CA13 PO; -ZONI25CA2 PO
[2019-05-23 19:04] LABS: APPEARANCE, URINE HAZY (CLEAR); BACTERIA, URINE AUTO NEGATIVE (NEGATIVE); BILIRUBIN, URINE AUTO NEGATIVE (NEGATIVE); BLOOD, URINE BLOOD NEGATIVE (NEGATIVE); COLOR, URINE YELLOW (YELLOW); GLUCOSE, URINE (UA) AUTO NEGATIVE (NEGATIVE); KETONE, URINE AUTO 1+ mg/dL (NEGATIVE); LEUKOCYTE ESTERASE, URINE AUTO NEGATIVE (NEGATIVE); MUCUS, URINE SMALL (NEGATIVE); NITRITE, URINE AUTO NEGATIVE (NEGATIVE); PROTEIN, URINE AUTO NEGATIVE (NEGATIVE); RBC, URINE AUTO 1 /HPF (0-3); SPECIFIC GRAVITY URINE AUTO 1.013 (1.002-1.035); SQUAMOUS EPITHELIAL CELL UR AU 3 /HPF (0-6); UROBILINOGEN, URINE AUTO 0.2 mg/dL (0.0-2.0); WBC, URINE AUTO 1 /HPF (0-3)
[2019-05-24 00:07] LABS: CHLAMYDIA DNA AMPLIFICATION NEGATIVE (NEGATIVE); GC DNA AMPLIFICATION NEGATIVE (NEGATIVE)
== END ==
LOC: M LAB REF 16:34
PROVIDERS: ATTEND Nurse Practitioner Family
DX: E55.9 Vitamin D deficiency, unspecified (principal); E78.5 Hyperlipidemia, unspecified; M54.9 Dorsalgia, unspecified; E66.9 Obesity, unspecified; Z11.3 Encounter for screening for infections with a predominantly sexual mode of transmission; Z72.0 Tobacco use

== ENCOUNTER 2019-12-21 12:06 | Emergency (ER) | payer MEDICAID, OTHER ==
[~2019-12-21] VITALS: Ht 170.2 cm; Wt 82.4 kg
[2019-12-21 12:07] VITALS: BP 138/82
[2019-12-21] MEDS ORDERED: LATU120T PO (12:13)
[2019-12-21] MEDS ORDERED: CLON0.5T2 PO (12:13)
[2019-12-21] MEDS ORDERED: PRED20TA PO (12:31)
[2019-12-21] MEDS ORDERED: METH1TAB40 PO (12:31)
== END 2019-12-21 12:41 | disposition home or self-care (01) ==
LOC: M ED 12:06
DX: S13.4XXA Sprain of ligaments of cervical spine, initial encounter (principal); X58.XXXA Exposure to other specified factors, initial encounter; Y92.9 Unspecified place or not applicable; Y93.9 Activity, unspecified; Y99.9 Unspecified external cause status; I10 Essential (primary) hypertension; K21.9 Gastro-esophageal reflux disease without esophagitis; E11.9 Type 2 diabetes mellitus without complications; G89.29 Other chronic pain; M54.9 Dorsalgia, unspecified; Z85.41 Personal history of malignant neoplasm of cervix uteri; F41.9 Anxiety disorder, unspecified; F31.89 Other bipolar disorder; F43.10 Post-traumatic stress disorder, unspecified; Z79.899 Other long term (current) drug therapy; Z88.6 Allergy status to analgesic agent

== ENCOUNTER 2020-01-16 13:52 | Emergency (ER) | payer MEDICAID, OTHER ==
[~2020-01-16] VITALS: Ht 170.2 cm; Wt 80.7 kg
[2020-01-16 13:52] VITALS: BP 135/85
[~2020-01-16 13:52] MED LIST changes: +CLON0.5T2 PO; +LATU120T PO; +METH1TAB40 PO; +PRED20TA PO
[2020-01-16] MEDS ORDERED: PRAZ1CAP (13:57)
[2020-01-16] MEDS ORDERED: BOOSTRIX/ADACEL VACCINE (DIPHTH/PERTUSS/ACELL/TETANUS) 0.5ML SYR IM ONE (14:30)
[2020-01-16] MEDS ORDERED: DERMABOND TOPICAL SKIN ADHESIVE TOP ONE (14:30)
== END 2020-01-16 14:44 | disposition home or self-care (01) ==
LOC: M ED 13:52
DX: S61.210A Laceration without foreign body of right index finger without damage to nail, initial encounter (principal); W26.8XXA Contact with other sharp object(s), not elsewhere classified, initial encounter; Y92.099 Unspecified place in other non-institutional residence as the place of occurrence of the external cause; Y93.89 Activity, other specified; Y99.9 Unspecified external cause status; I10 Essential (primary) hypertension; Z98.84 Bariatric surgery status; Z79.899 Other long term (current) drug therapy; Z88.6 Allergy status to analgesic agent

== ENCOUNTER → 2020-02-04 | Outpatient (REF) | payer OTHER ==
[~2020-02-04] MED LIST changes: +PRAZ1CAP
[2020-02-04 21:47] LABS: HCG, SERUM QUALITATIVE NEGATIVE (NEGATIVE)
[2020-02-04 21:56] LABS: HCG, SERUM QUANTITATIVE < 1.0 MIU/ML
== END ==
LOC: M LAB REF 21:21
PROVIDERS: ATTEND Physician Assistant Medical
DX: O26.90 Pregnancy related conditions, unspecified, unspecified trimester (principal)

== ENCOUNTER → 2020-02-13 | Outpatient (REF) | payer OTHER ==
[2020-02-13 16:37] LABS: APPEARANCE, URINE CLEAR (CLEAR); BACTERIA, URINE AUTO NEGATIVE (NEGATIVE); BILIRUBIN, URINE AUTO NEGATIVE (NEGATIVE); BLOOD, URINE BLOOD NEGATIVE (NEGATIVE); COLOR, URINE YELLOW (YELLOW); GLUCOSE, URINE (UA) AUTO NEGATIVE (NEGATIVE); KETONE, URINE AUTO NEGATIVE (NEGATIVE); LEUKOCYTE ESTERASE, URINE AUTO NEGATIVE (NEGATIVE); NITRITE, URINE AUTO NEGATIVE (NEGATIVE); PROTEIN, URINE AUTO NEGATIVE (NEGATIVE); RBC, URINE AUTO 0 /HPF (0-3); SPECIFIC GRAVITY URINE AUTO 1.004 (1.002-1.035); SQUAMOUS EPITHELIAL CELL UR AU 2 /HPF (0-6); UROBILINOGEN, URINE AUTO 0.2 mg/dL (0.0-2.0); WBC, URINE AUTO 0 /HPF (0-3)
== END ==
LOC: M LAB REF 16:15
PROVIDERS: ATTEND Physician Assistant
DX: N39.0 Urinary tract infection, site not specified (principal)

== ENCOUNTER → 2020-04-23 | Outpatient (REF) | payer OTHER, MEDICAID ==
[2020-04-23 22:52] LABS: URINE PREG TEST POSITIVE (NEGATIVE)
[2020-04-24 00:17] LABS: CHLAMYDIA DNA AMPLIFICATION NEGATIVE (NEGATIVE); GC DNA AMPLIFICATION NEGATIVE (NEGATIVE)
== END ==
LOC: M LAB REF 08:31
PROVIDERS: ATTEND Physician Assistant
DX: Z11.3 Encounter for screening for infections with a predominantly sexual mode of transmission (principal)

== ENCOUNTER 2020-04-30 02:27 | Emergency (ER) | payer OTHER, MEDICAID ==
[~2020-04-30] VITALS: Ht 170.2 cm; Wt 76.3 kg
[~2020-04-30 02:27] MED LIST changes: -LISI-538; +LISI20TA33; +METH-1164 PO; -METH1TAB40 PO
[2020-04-30 02:28] VITALS: BP 134/77
--- OUTSIDE RECORDS SUMMARY | 2020-04-30 02:32 | CCD | Continuity of Care Document ---
Author Author Yolette PINEDA DO Organization Unknown Address [address] [place] [address] Phone [phone] Problems Description No Information Available Social History Type Date Description Comments Sex Unknown Tobacco Use Start: Unknown Light tobacco smoker (10 or fewe r cigarettes/day) Tobacco Use Start: Unknown Light tobacco smoker (10 or fewe r cig/day) Tobacco Use Start: Unknown Never Smoked A Pipe Tobacco Use Start: Unknown Never Used Smokeless Tobacco ETOH Use Occasionally consumes alcohol no t since becoming Tobacco Use Start: Unknown Patient is a current smoker, smo kes every day Recreational Drug Use Denies Drug Use Allergies, Adverse Reactions, Alerts Active Allergies Reaction Severity Comments Date NKFA 04/29/2020 Honey Bee Venom swelling, hives Moderate Inactive Allergies NKDA 04/29/2020 Medications Active Medications SIG Qnty Indications Ordering Provide r Date B12 Fast Dissolve 5000mcg Tablets Dispers daily Unknown Calcium 500 twice daily Unknown Vitamin D3 Adult Oral daily Unknown Tablets 1 by [address] th every day Unknown Multivitamin Adult Tablets 1 by mouth every day Unknown Immunizations Description No Information Available Vital Signs Date Vital Result Comment 04/29/2020 10:10am BP Systolic 114 mmHg BP Diastolic 66 mmHg Heart Rate 72 /min Body Temperature 97.1 F Weight 168.00 lb Weight 76.205 kg Height 67 inches 5'7" BMI (Body Mass Index) 26.3 kg/m2 BSA (Body Surface Area) 1.88 m2 Results Description No Information Available Procedures Description No Information Available Medical Devices Description No Information Available Encounters Type Date Location Provider Dx Diagnosis Office Visit 04/29/2020 10:[address]a [facility] Jose Pineda DO N91.2 Amenorrhea, unspecified Assessments Date Code Description Provider 04/29/2020 N91.2 Amenorrhea, unspecified Jose Pineda DO Plan of Treatment No Information Available Functional Status Description No Information Available Mental Status Description No Information Available Referrals Description No Information Available
--- OUTSIDE RECORDS SUMMARY | 2020-04-30 02:33 | CCD ---
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 Name Role Phone Pati ChongP Unavailable Unavailable Pati ChongP Unavailable Unavailable Pati ChongP Unavailable Unavailable Castillo, A Joanne ERP IMPLEMENTATION CONSULTANT Unavailable Unavailable Castillo, A Joanne ERP IMPLEMENTATION CONSULTANT Unavailable Unavailable Castillo, A Joanne ERP IMPLEMENTATION CONSULTANT Unavailable Unavailable Castillo, A Joanne ERP IMPLEMENTATION CONSULTANT Unavailable Unavailable Castillo, A Joanne ERP IMPLEMENTATION CONSULTANT Unavailable Unavailable Castillo, A Joanne ERP IMPLEMENTATION CONSULTANT Unavailable Unavailable Castillo, A Joanne ERP IMPLEMENTATION CONSULTANT Unavailable Unavailable Castillo, A Joanne ERP IMPLEMENTATION CONSULTANT Unavailable Unavailable Castillo, A Joanne ERP IMPLEMENTATION CONSULTANT Unavailable Unavailable Castillo, A Joanne ERP IMPLEMENTATION CONSULTANT Unavailable Unavailable Castillo, A Joanne ERP IMPLEMENTATION CONSULTANT Unavailable Unavailable [place], A Joanne ERP IMPLEMENTATION CONSULTANT Unavailable Unavailable Castillo, A Joanne ERP IMPLEMENTATION CONSULTANT Unavailable Unavailable Castillo, A Joanne ERP IMPLEMENTATION CONSULTANT Unavailable Unavailable Castillo, A Joanne ERP IMPLEMENTATION CONSULTANT Unavailable Unavailable Castillo, A Joanne ERP IMPLEMENTATION CONSULTANT Unavailable Unavailable Castillo, A Joanne ERP IMPLEMENTATION CONSULTANT Unavailable Unavailable [place], A Joanne ERP IMPLEMENTATION CONSULTANT Unavailable Unavailable Castillo, A Joanne ERP IMPLEMENTATION CONSULTANT Unavailable Unavailable Castillo, A Joanne ERP IMPLEMENTATION CONSULTANT Unavailable Unavailable Castillo, A Joanne ERP IMPLEMENTATION CONSULTANT Unavailable Unavailable Castillo, A Joanne ERP IMPLEMENTATION CONSULTANT Unavailable Unavailable Castillo, A Joanne ERP IMPLEMENTATION CONSULTANT Unavailable Unavailable Castillo, A Joanne ERP IMPLEMENTATION CONSULTANT Unavailable Unavailable BroussardCasa MD Unavailable Unavailable Broussard, Casa Bautista MD Unavailable Unavailable BroussardCasa MD Unavailable Unavailable BroussardCasa MD Unavailable Unavailable BroussardCasa MD Unavailable Unavailable BroussardCasa MD Unavailable Unavailable BroussardCasa MD Unavailable Unavailable BroussardCasa MD Unavailable Unavailable BroussardCasa MD Unavailable Unavailable BroussardCasa garcia MD Unavailable Unavailable BroussardCasa garcia MD Unavailable Unavailable BroussardCasa garcia MD Unavailable Unavailable BroussardCasa garcia MD Unavailable Unavailable BroussardCasa MD Unavailable Unavailable BroussardCasa MD Unavailable Unavailable BroussardCasa MD Unavailable Unavailable BroussardCasa MD Unavailable Unavailable BroussardCasa MD Unavailable Unavailable BroussardCasa garcia MD Unavailable Unavailable BroussardCasa garcia MD Unavailable Unavailable BroussardCasa garcia MD Unavailable Unavailable RboussardCasa garcia MD Unavailable Unavailable BroussardCasa MD Unavailable Unavailable BroussardCasa garcia MD Unavailable Unavailable BroussardCasa garcia MD Unavailable Unavailable BroussardCasa garcia MD Unavailable Unavailable BroussardCasa garcia MD Unavailable Unavailable BroussardCasa garcia MD Unavailable Unavailable Casa Broussard MD Unavailable Unavailable BroussardCasa garcia MD Unavailable Unavailable BroussardCasa MD Unavailable Unavailable BroussardCasa MD Unavailable Unavailable BroussardCasa MD Unavailable Unavailable BroussardCasa MD Unavailable Unavailable Broussard, L Michele SNOWDEN Unavailable Unavailable Broussard, L Michele SNOWDEN Unavailable Unavailable Broussard, L Michele SNOWDEN Unavailable Unavailable Broussard, L Michele SNOWDEN Unavailable Unavailable Broussard, L Michele SNOWDEN Unavailable Unavailable Broussard, L Michele SNOWDEN Unavailable Unavailable Broussard, L Michele SNOWDEN Unavailable Unavailable Broussard, L Michele SNOWDEN Unavailable Unavailable Broussard, L Michele SNOWDEN Unavailable Unavailable Broussard, L Michele SNOWDEN Unavailable Unavailable Broussard, L Michele SNOWDEN Unavailable Unavailable Broussard, L Michele SNOWDEN Unavailable Unavailable Broussard, L Michele SNOWDEN Unavailable Unavailable Jepma, W Harry DO Unavailable Unavailable Jepma, W Harry DO Unavailable Unavailable Jepma, W Harry DO Unavailable Unavailable Jepma, W Harry DO Unavailable Unavailable Jepma, W Ahrry DO Unavailable Unavailable Jepma, W Harry DO Unavailable Unavailable Jepma, W Harry DO Unavailable Unavailable Jepma, W Harry DO Unavailable Unavailable Jepma, W Harry DO Unavailable Unavailable Jepma, W Harry DO Unavailable Unavailable Jepma, W Harry DO Unavailable Unavailable Jepma, W Harry DO Unavailable Unavailable Jepma, W Harry DO Unavailable Unavailable Jepma, W Harry DO Unavailable Unavailable Jepma, W Harry DO Unavailable Unavailable Jepma, W Harry DO Unavailable Unavailable Jepma, W Harry DO Unavailable Unavailable Jepma, W Harry DO Unavailable Unavailable Jepma, W Harry DO Unavailable Unavailable Jepma, W Harry DO Unavailable Unavailable Jepma, W Harry DO Unavailable Unavailable Jepma, W Harry DO Unavailable Unavailable Jepma, W Harry DO Unavailable Unavailable Jepma, W Harry DO Unavailable Unavailable Jepma, W Harry DO Unavailable Unavailable Jepma, W Harry DO Unavailable Unavailable Jepma, W Harry DO Unavailable Unavailable Jepma, W Haryr DO Unavailable Unavailable Jepma, W Harry DO Unavailable Unavailable Jepma, W Harry DO Unavailable Unavailable Jepma, W Harry DO Unavailable Unavailable Jepma, W Harry DO Unavailable Unavailable Jepma, W Harry DO Unavailable Unavailable Jepma, W Harry DO Unavailable Unavailable Jepma, W Harry DO Unavailable Unavailable Jepma, W Harry DO Unavailable Unavailable Jepma, W Harry DO Unavailable Unavailable Jepma, W Harry DO Unavailable Unavailable Jepma, W Harry DO Unavailable Unavailable Jepma, W Harry DO Unavailable Unavailable Jepma, W Harry DO Unavailable Unavailable Jepma, W Harry DO Unavailable Unavailable Jepma, W Harry DO Unavailable Unavailable Jepma, W Harry DO Unavailable Unavailable Jepma, W Harry DO Unavailable Unavailable Jepma, W Harry DO Unavailable Unavailable Jepma, W Harry DO Unavailable Unavailable Jepma, W Harry DO Unavailable Unavailable Jepma, W Harry DO Unavailable Unavailable Jepma, W Harry DO Unavailable Unavailable Jepma, W Harry DO Unavailable Unavailable Jepma, W Harry DO Unavailable Unavailable Jepma, W Harry DO Unavailable Unavailable Jepma, W Harry DO Unavailable Unavailable Jepma, W Harry DO Unavailable Unavailable Jepma, W Harry DO Unavailable Unavailable Jepma, W Harry DO Unavailable Unavailable Jepma, W Harry DO Unavailable Unavailable Jepma, W Harry DO Unavailable Unavailable Nwogu, U Jose DO Unavailable Unavailable Nwogu, U Jose DO Unavailable Unavailable Nwogu, U Jose DO Unavailable Unavailable Nwogu, U Jose DO Unavailable Unavailable Nwogu, U Jose DO Unavailable Unavailable Nwogu, U Jose DO Unavailable Unavailable Nwogu, U Jose DO Unavailable Unavailable Nwogu, U Jose DO Unavailable Unavailable Nwogu, U Jose DO Unavailable Unavailable Nwogu, U Jose DO Unavailable Unavailable Nwogu, U Jose DO Unavailable Unavailable Nwogu, U Jose DO Unavailable Unavailable TURRIN, JUSTUS Unavailable Unavailable TURRIN, JUSTUS Unavailable Unavailable TURRIN, JUSTUS Unavailable Unavailable TURRIN, JUSTUS Unavailable Unavailable Nwogu, U Jose DO Unavailable Unavailable Nwogu, U Jose DO Unavailable Unavailable Nwogu, U Jose DO Unavailable Unavailable Nwogu, U Jose DO Unavailable Unavailable Nwogu, U Jose DO Unavailable Unavailable Nwogu, U Jose DO Unavailable Unavailable Nwogu, U Jose DO Unavailable Unavailable Nwogu, U Jose DO Unavailable Unavailable Nwogu, U Jose DO Unavailable Unavailable Nwogu, U Jose DO Unavailable Unavailable Nwogu, U Jose DO Unavailable Unavailable Joanne Chong ERP IMPLEMENTATION CONSULTANT ERP IMPLEMENTATION CONSULTANT Unavailable Unavailable Obradovic, Vladan Unavailable Unavailable Obradovic, Vladan Unavailable Unavailable Obradovic, Vladan Unavailable Unavailable Obradovic, Vladan Unavailable Unavailable Obradovic, Vladan Unavailable Unavailable Obradovic, Vladan Unavailable Unavailable Obradovic, Vladan Unavailable Unavailable Obradovic, Vladan Unavailable Unavailable Obradovic, Vladan Unavailable Unavailable Obradovic, Vladan Unavailable Unavailable Obradovic, Vladan Unavailable Unavailable Obradovic, Vladan Unavailable Unavailable Obradovic, Vladan Unavailable Unavailable Obradovic, Vladan Unavailable Unavailable Obradovic, Vladan Unavailable Unavailable Obradovic, Vladan Unavailable Unavailable Obradovic, Vladan Unavailable Unavailable Obradovic, Vladan Unavailable Unavailable Obradovic, Vladan Unavailable Unavailable Obradovic, Vladan Unavailable Unavailable Obradovic, Vladan Unavailable Unavailable Obradovic, Vladan Unavailable Unavailable Obradovic, Vladan Unavailable Unavailable Obradovic, Vladan Unavailable Unavailable Obradovic, Vladan Unavailable Unavailable Obradovic, Vladan Unavailable Unavailable Obradovic, Vladan Unavailable Unavailable Obradovic, Vladan Unavailable Unavailable Obradovic, Vladan Unavailable Unavailable Obradovic, Vladan Unavailable Unavailable Obradovic, Vladan Unavailable Unavailable Obradovic, Vladan Unavailable Unavailable Obradovic, Vladan Unavailable Unavailable Obradovic, Vladan Unavailable Unavailable Obradovic, Vladan Unavailable Unavailable Obradovic, Vladan Unavailable Unavailable Obradovic, Vladan Unavailable Unavailable Obradovic, Vladan Unavailable Unavailable Obradovic, Vladan Unavailable Unavailable Obradovic, Vladan Unavailable Unavailable Obradovic, Vladan Unavailable Unavailable Obradovic, Vladan Unavailable Unavailable Obradovic, Vladan Unavailable Unavailable Obradovic, Vladan Unavailable Unavailable Obradovic, Vladan Unavailable Unavailable Obradovic, Vladan Unavailable Unavailable Re-disclosure Warning The records that you are about to access may contain information from federally-assisted alcohol or drug abuse programs. If such information is present, then the following federally mandated warning applies: This information has been disclosed to you from records protected by federal confidentiality rules (42 CFR part 2). The federal rules prohibit you from making any further disclosure of this information unless further disclosure is expressly permitted by the written consent of the person to whom it pertains or as otherwise permitted by 42 CFR part 2. A general authorization for the release of medical or other information is NOT sufficient for this purpose. The Federal rules restrict any use of the information to criminally investigate or prosecute any alcohol or drug abuse patient.The records that you are about to access may contain highly sensitive health information, the redisclosure of which is protected by Article 27-F of the [facility] Public Health law. If you continue you may have access to information: Regarding HIV / AIDS; Provided by facilities licensed or operated by the [facility] Office of Mental Health; or Provided by the [facility] Office for People With Developmental Disabilities. If such information is present, then the following [facility] mandated warning applies: This information has been disclosed to you from confidential records which are protected by state law. State law prohibits you from making any further disclosure of this information without the specific written consent of the person to whom it pertains, or as otherwise permitted by law. Any unauthorized further disclosure in violation of state law may result in a fine or fci sentence or both. A general authorization for the release of medical or other information is NOT sufficient authorization for further disc losure. Allergies and Adverse Reactions Type Description Substance Reaction Status Data Source(s ) Drug Allergy Drug Allergy NKDA MEDENT ([facility]) Family History Family Member Name Family Member Gender Family Member Status Date o f Status Description Data Source(s) Unknown Male Problem MEDENT ([facility] Unknown Male Problem MEDENT ([facility]) Unknown Unknown Problem MEDENT ([facility] ) Unknown Unknown Problem MEDENT ([facility] ) Unknown Unknown Problem MEDENT ([facility] ) Unknown Unknown Problem MEDENT ([facility], ) Mother dx age 30 Encounters Encounter Providers Location Date Indications Data Source(s ) Outpatient Attender: Jose Pineda DOConsultant: Harry hunter DO 04/29/2020 10:01:00 AM EST - 04/29/2020 10:01:00 AM [facility] Outpatient Attender: Jose Pineda DO Family Practice 04/11 09:00:00 AM EST [facility] Emergency Attender: JUSTUS MAYESConsultant: Harry Long DO 04/27/2020 09:06:00 PM EST - 04/28/2020 12:53:00 AM [facility] Patient discharged. Outpatient Attender: Joanne LE 12/23/2019 03:1 5:01 PM EDT [facility] Outpatient Attender: Joanne VOSSP FP 09/08/2019 04:3 3:02 PM EDT [facility] Outpatient Attender: REY VOSSP FP 09/06/2019 08:39:00 A M EDT [facility] Outpatient Attender: REY Chong ERP IMPLEMENTATION CONSULTANT FP 08/28/2019 11:05:01 A M EDT [facility] Outpatient Attender: REY VOSSP FP 08/13/2019 09:49:01 A M EDT [facility] Outpatient Attender: REY VOSSP FP 07/04/2019 02:01:01 P M EDT [facility] Outpatient Attender: Joanne VOSSP FP 06/18/2019 09:1 5:01 PM EDT [facility] Outpatient Attender: REY VOSSP FP 06/01/2019 02:10:01 P M [facility] Outpatient Attender: Joanne VOSSP FP 06/01/2019 02:1 0:01 PM [facility] Outpatient Attender: REY Chong ERP IMPLEMENTATION CONSULTANT FP 05/24/2019 09:27:51 A M [facility] Outpatient Attender: Joanne VOSSP FP 05/24/2019 09:2 6:39 AM [facility] Outpatient Attender: REY VOSSP FP 05/22/2019 03:13:01 P M [facility] Outpatient Attender: Joanne VOSSP FP 05/16/2019 05:1 9:01 PM [facility] Outpatient Attender: REY VOSSP FP 05/15/2019 10:43:00 A M [facility] Outpatient Attender: REY VOSSP FP 05/14/2019 05:40:01 P M [facility] Outpatient Attender: REY VOSSP FP 05/14/2019 05:39:00 P M [facility] Outpatient Attender: REY VOSSP FP 05/14/2019 04:47:01 P M [facility] Outpatient Attender: REY VOSSP FP 05/14/2019 09:05:01 A M [facility] Outpatient Attender: REY VOSSP FP 04/17/2019 12:59:01 P M [facility] Outpatient Attender: REY Chong ERP IMPLEMENTATION CONSULTANT 04/16/2019 03:29:01 P [facility] Outpatient Referrer: Michele Broussard MD 04/16/2019 01:55:00 PM [facility] Outpatient Attender: Joanne Chong ERP IMPLEMENTATION CONSULTANT 04/16/2019 10:1 9:03 AM [facility] Outpatient Attender: ERP IMPLEMENTATION CONSULTANT Castillo ERP IMPLEMENTATION CONSULTANT 04/15/2019 09:01:05 P M [facility] Outpatient Attender: REY Chong ERP IMPLEMENTATION CONSULTANT 04/08/2019 04:03:00 P [facility] Outpatient Attender: ERP IMPLEMENTATION CONSULTANT Castillo ERP IMPLEMENTATION CONSULTANT 03/26/2019 11:08:01 A M [facility] Outpatient Attender: Joanne Chong [facility] 03/26/2019 11:0 6:59 AM [facility] Outpatient Att[facility]: [facility] 03/26/2019 11:04:01 A [facility] Outpatient Referrer: Michele Broussard MD 03/01/2019 09:36:00 PM [facility] Inpatient<td>10/18/2018 - 10/19/2018</td ><td ID="[id number]">Hospital Encounter</td><td><paragraph>Med Surg Unit 4-[address]</paragraph><paragraph>[address]</paragraph><paragraph>[place] [id number]</paragraph><paragraph>[phone]</paragraph></td><td><paragraph styleCode="Bold">Dwain Uriarte MD</paragraph><paragraph>[address] [place] [address]</paragraph><paragraph>[phone]</paragraph><paragraph>[place] [id number]</paragraph><paragraph>[phone]</paragraph><paragraph> </paragraph></td><td></td> Attender: Dwain UriarteAdmitter: Meño Uriarte [id number] 10/18/2018 12:00:00 AM EDT - 10/19/2018 03:49:00 PM EDT [facility] Medications Medication Brand Name Start Date Product Form Dose Route Admi nistrative Instructions Pharmacy Instructions Status Indications Reaction Description Data Source(s) 0.5 mg 04/10/2020 12:00:00 AM EST tablet 90 TAKE ONE TABLET BY MOUTH THREE TIMES A DAY NEEDED, MAXIMUM DAILY DOSE = THREE TABLETS TAKE ONE TABLET BY MOUTH THREE TIMES A DAY NEEDED, MAXIMUM DAILY DOSE = THREE TABLETS SOLD: 04/13/2020 [facility] 100 mg 04/08/2020 12:00:00 AM EST capsule 90 TAKE ONE CAPSULE BY MOUTH THREE TIMES A DAY TAKE ONE CAPSULE BY MOUTH THREE TIMES A DAY SOLD: 04/13/2020 [facility] 600 mg 04/08/2020 12:00:00 AM EST tablet 90 TAKE ONE TABLET BY MOUTH THREE TIMES A DAY TAKE ONE TABLET BY MOUTH THREE TIMES A DAY SOLD: 04/13/2020 [facility] 1 mg 03/18/2020 12:00:00 AM EST capsule 30 TAKE ONE CAPSULE BY MOUTH EVERY DAY AT BEDTIME TAKE ONE CAPSULE BY MOUTH EVERY DAY AT BEDTIME SOLD: [facility] 1 mg 03/18/2020 12:00:00 AM EST capsule 30 TAKE ONE CAPSULE BY MOUTH EVERY DAY AT BEDTIME TAKE ONE CAPSULE BY MOUTH EVERY DAY AT BEDTIME SOLD: [facility] 60 mg 03/18/2020 12:00:00 AM EST tablet 30 TAKE ONE TABLET BY MOUTH EVERY DAY DIRECTED TAKE ONE TABLET BY MOUTH EVERY DAY DIRECTED SOLD: [facility] 60 mg 03/18/2020 12:00:00 AM EST tablet 30 TAKE ONE TABLET BY MOUTH EVERY DAY DIRECTED TAKE ONE TABLET BY MOUTH EVERY DAY DIRECTED SOLD: [facility] 40 mg 03/13/2020 12:00:00 AM EST tablet 30 TAKE ONE TABLET BY MOUTH EVERY DAY TAKE ONE TABLET BY MOUTH EVERY DAY SOLD: 04/13/2020 [facility] 40 mg 03/13/2020 12:00:00 AM EST tablet 30 TAKE ONE TABLET BY MOUTH EVERY DAY TAKE ONE TABLET BY MOUTH EVERY DAY SOLD: 03/23/2020 [facility] 0.5 mg 03/10/2020 12:00:00 AM EST tablet 90 TAKE ONE TABLET BY MOUTH THREE TIMES A DAY NEEDED , MAXIMUM DAILY DOSE = 3 TABLETS TAKE ONE TABLET BY MOUTH THREE TIMES A DAY NEEDED , MAXIMUM DAILY DOSE = 3 TABLETS SOLD: 03/12/2020 [facility] 500 mg 02/20/2020 12:00:00 AM EST capsule 21 TAKE ONE CAPSULE BY MOUTH EVERY 8 HOURS UNTIL FINISHED TAKE ONE CAPSULE BY MOUTH EVERY 8 HOURS UNTIL FINISHED SOLD: 02/20/2020 [facility] 5-325 mg 02/20/2020 12:00:00 AM EST tablet 12 TAKE ONE TABLET BY MOUTH EVERY 6 HOURS NEEDED FOR PAIN , MAXIMUM DAILY DOSE = 4 TABLETS TAKE ONE TABLET BY MOUTH EVERY 6 HOURS NEEDED FOR PAIN , MAXIMUM DAILY DOSE = 4 TABLETS SOLD: 02/20/2020 [facility] 0.5 mg 02/04/2020 12:00:00 AM EDT tablet 90 TAKE ONE TABLET BY MOUTH THREE TIMES A DAY NEEDED, MAXIMUM DAILY DOSE = THREE TABLETS TAKE ONE TABLET BY MOUTH THREE TIMES A DAY NEEDED, MAXIMUM DAILY DOSE = THREE TABLETS SOLD: 02/05/2020 [facility] 60 mg 01/01/2020 12:00:00 AM EDT tablet 30 TAKE 1 TABLET BY MOUTH ONCE DAILY DIRECTED TAKE 1 TABLET BY MOUTH ONCE DAILY DIRECTED SOLD: 01/03/2020 [facility] 1 mg 01/01/2020 12:00:00 AM EDT capsule 30 TAKE ONE CAPSULE BY MOUTH AT BEDTIME TAKE ONE CAPSULE BY MOUTH AT BEDTIME SOLD: 01/03/2020 [facility] 40 mg 01/01/2020 12:00:00 AM EDT tablet 30 TAKE 1 TABLET BY MOUTH ONCE DAILY TAKE 1 TABLET BY MOUTH ONCE DAILY SOLD: 01/03/2020 [facility] 0.5 mg 01/01/2020 12:00:00 AM EDT tablet 90 TAKE 1 TABLET BY MOUTH THREE TIMES A DAY MAXIMUM DAILY DOSE = 3 TABLETS TAKE 1 TABLET BY MOUTH THREE TIMES A DAY MAXIMUM DAILY DOSE = 3 TABLETS SOLD: 01/03/2020 [facility] 20 mg 12/04/2019 12:00:00 AM EDT tablet 30 TAKE ONE TABLET BY MOUTH ONCE DAILY TAKE ONE TABLET BY MOUTH ONCE DAILY SOLD: 12/05/2019 [facility] 120 mg 12/04/2019 12:00:00 AM EDT tablet 30 TAKE ONE TABLET BY MOUTH ONCE DAILY DIRECTED TAKE ONE TABLET BY MOUTH ONCE DAILY DIRECTED SOLD: 12/05/2019 [facility] 0.5 mg 12/04/2019 12:00:00 AM EDT tablet 60 TAKE ONE TABLET BY MOUTH TWO TIMES A DAY DIRECTED MAXIMUM DAILY DOSE = 2 TABLETS TAKE ONE TABLET BY MOUTH TWO TIMES A DAY DIRECTED MAXIMUM DAILY DOSE = 2 TABLETS SOLD: 12/05/2019 [facility] 0.5 mg 11/02/2019 12:00:00 AM EDT tablet 90 TAKE ONE TABLET BY MOUTH THREE TIMES A DAY NEEDED MAXIMUM DAILY DOSE = 3 TABLETS TAKE ONE TABLET BY MOUTH THREE TIMES A DAY NEEDED MAXIMUM DAILY DOSE = 3 TABLETS SOLD: 11/04/2019 [facility] 120 mg 11/02/2019 12:00:00 AM EDT tablet 30 TAKE ONE TABLET BY MOUTH ONCE DAILY WITH A MEAL TAKE ONE TABLET BY MOUTH ONCE DAILY WITH A MEAL SOLD: 11/04/2019 [facility] 0.5 mg 09/30/2019 12:00:00 AM EDT tablet 90 TAKE ONE TABLET BY MOUTH THREE TIMES A DAY NEEDED, MAXIMUM DAILY DOSE = THREE TABLETS TAKE ONE TABLET BY MOUTH THREE TIMES A DAY NEEDED, MAXIMUM DAILY DOSE = THREE TABLETS SOLD: 10/04/2019 [facility] 120 mg 09/18/2019 12:00:00 AM EDT tablet 30 TAKE ONE TABLET BY MOUTH EVERY DAY WITH MEALS TAKE ONE TABLET BY MOUTH EVERY DAY WITH MEALS SOLD: 09/21/2019 [facility] 20 mg 09/18/2019 12:00:00 AM EDT tablet 30 TAKE ONE TABLET BY MOUTH EVERY DAY TAKE ONE TABLET BY MOUTH EVERY DAY SOLD: 09/21/2019 [facility] 100 mg 09/09/2019 12:00:00 AM EDT capsule 90 TAKE ONE CAPSULE BY MOUTH THREE TIMES A DAY TAKE ONE CAPSULE BY MOUTH THREE TIMES A DAY SOLD: 12/05/2019 [facility] 100 mg 09/09/2019 12:00:00 AM EDT capsule 90 TAKE ONE CAPSULE BY MOUTH THREE TIMES A DAY TAKE ONE CAPSULE BY MOUTH THREE TIMES A DAY SOLD: 09/11/2019 [facility] 600 mg 09/09/2019 12:00:00 AM EDT tablet 90 TAKE ONE TABLET BY MOUTH THREE TIMES A DAY TAKE ONE TABLET BY MOUTH THREE TIMES A DAY SOLD: 12/06/2019 [facility] 600 mg 09/09/2019 12:00:00 AM EDT tablet 90 TAKE ONE TABLET BY MOUTH THREE TIMES A DAY TAKE ONE TABLET BY MOUTH THREE TIMES A DAY SOLD: 09/11/2019 [facility] 0.5 mg 08/29/2019 12:00:00 AM EDT tablet 90 TAKE ONE TABLET BY MOUTH THREE TIMES A DAY NEEDED, MAXIMUM DAILY DOSE = THREE TABLETS TAKE ONE TABLET BY MOUTH THREE TIMES A DAY NEEDED, MAXIMUM DAILY DOSE = THREE TABLETS SOLD: 09/01/2019 [facility] 25 mg 08/21/2019 12:00:00 AM EDT tablet 30 TAKE ONE TABLET BY MOUTH EVERY DAY TAKE ONE TABLET BY MOUTH EVERY DAY SOLD: 08/25/2019 [facility] 120 mg 08/21/2019 12:00:00 AM EDT tablet 30 TAKE ONE TABLET BY MOUTH EVERY DAY WITH A MEAL TAKE ONE TABLET BY MOUTH EVERY DAY WITH A MEAL SOLD: 020 [facility] 150 mg 08/01/2019 12:00:00 AM EDT tablet 2 TAKE ONE TABLET BY MOUTH ONCE MAY REPEAT IN 5-7 DAYS TAKE ONE TABLET BY MOUTH ONCE MAY REPEAT IN 5-7 DAYS S OLD: 08/01/2019 [facility] 500 mg 08/01/2019 12:00:00 AM EDT tablet 14 TAKE ONE TABLET BY MOUTH TWICE A DAY FOR 7 DAYS TAKE ONE TABLET BY MOUTH TWICE A DAY FOR 7 DAYS SOLD: 2019 [facility] 80 mg 07/24/2019 12:00:00 AM EDT tablet 30 TAKE ONE TABLET BY MOUTH EVERY DAY WITH MEALS TAKE ONE TABLET BY MOUTH EVERY DAY WITH MEALS SOLD: 07/31/2019 [facility] 0.5 mg 07/24/2019 12:00:00 AM EDT tablet 90 TAKE ONE TABLET BY MOUTH THREE TIMES A DAY NEEDED , MAXIMUM DAILY DOSE = 3 TABLETS TAKE ONE TABLET BY MOUTH THREE TIMES A DAY NEEDED , MAXIMUM DAILY DOSE = 3 TABLETS SOLD: 07/31/2019 [facility] 60 mg 07/24/2019 12:00:00 AM EDT tablet 30 TAKE ONE TABLET BY MOUTH EVERY DAY WITH MEALS TAKE ONE TABLET BY MOUTH EVERY DAY WITH MEALS SOLD: 07/31/2019 [facility] 50 mg 07/24/2019 12:00:00 AM EDT tablet 30 TAKE ONE TABLET BY MOUTH EVERY DAY TAKE ONE TABLET BY MOUTH EVERY DAY SOLD: 07/31/2019 [facility] 60 mg 06/19/2019 12:00:00 AM EDT tablet 30 TAKE ONE TABLET BY MOUTH EVERY DAY WITH A MEAL TAKE ONE TABLET BY MOUTH EVERY DAY WITH A MEAL SOLD: 020 [facility] 0.5 mg 06/19/2019 12:00:00 AM EDT tablet 90 TAKE ONE TABLET BY MOUTH THREE TIMES A DAY NEEDED MAXIMUM DAILY DOSE = THREE TABLETS TAKE ONE TABLET BY MOUTH THREE TIMES A DAY NEEDED MAXIMUM DAILY DOSE = THREE TABLETS SOLD: 06/25/2019 [facility] 500 mg 05/23/2019 12:00:00 AM EST capsule 10 TAKE ONE CAPSULE BY MOUTH TWICE A DAY FOR 5 DAYS TAKE ONE CAPSULE BY MOUTH TWICE A DAY FOR 5 DAYS SOLD: 05/27/2019 [facility] 0.3-0.1 % 05/23/2019 12:00:00 AM EST drops,suspension 7 INSTILL 3 DROPS INTO EACH EAR 3 TIMES A DAY FOR 5 DAYS INSTILL 3 DROPS INTO EACH EAR 3 TIMES A DAY FOR 5 DAYS SOLD: 05/27/2019 [facility] 150 mg 05/23/2019 12:00:00 AM EST tablet 2 TAKE ONE TABLET BY MOUTH ONCE, MAY REPEAT IN 5 TO 7 DAYS TAKE ONE TABLET BY MOUTH ONCE, MAY REPEA T IN 5 TO 7 DAYS SOLD: 05/27/2019 [facility] 100,000 unit/mL 05/23/2019 12:00:00 AM EST suspension 100 SWISH AND SWALLOW 5 ML BY MOUTH FOUR TIMES A DAY FOR 5 DAYS SWISH AND SWALLOW 5 ML BY MOUTH FOUR TIMES A DAY FOR 5 DAYS SOLD: 05/27/2019 [facility] 100 mg 05/17/2019 12:00:00 AM EST capsule 90 TAKE ONE CAPSULE BY MOUTH THREE TIMES A DAY TAKE ONE CAPSULE BY MOUTH THREE TIMES A DAY SOLD: 05/19/2019 [facility] 600 mg 05/17/2019 12:00:00 AM EST tablet 90 TAKE ONE TABLET BY MOUTH THREE TIMES A DAY TAKE ONE TABLET BY MOUTH THREE TIMES A DAY SOLD: 05/19/2019 [facility] 0.5 mg 04/26/2019 12:00:00 AM EST tablet 60 TAKE ONE TABLET BY MOUTH TWICE A DAY NEEDED MAXIMUM DAILY DOSE = 2 TAKE ONE TABLET BY MOUTH TWICE A DAY NEEDED MAXIMUM DAILY DOSE = 2 SOLD: 04/29/2019 [facility] 50 mg 04/26/2019 12:00:00 AM EST tablet 30 TAKE ONE TABLET BY MOUTH EVERY DAY AT BEDTIME TAKE ONE TABLET BY MOUTH EVERY DAY AT BEDTIME SOLD: 04/29/2019 [facility] 80 mg 04/24/2019 12:00:00 AM EST tablet 30 TAKE ONE TABLET BY MOUTH EVERY DAY AT BEDTIME WITH A MEAL TAKE ONE TABLET BY MOUTH EVERY DAY AT BE DTIME WITH A MEAL SOLD: 04/25/2019 [facility] 2 mg 04/17/2019 12:00:00 AM EST tablet 60 TAKE ONE TABLET BY MOUTH THREE TIMES A DAY NEEDED TAKE ONE TABLET BY MOUTH THREE TIMES A DAY NEEDED S OLD: 04/19/2019 [facility] 100 mg 03/31/2019 12:00:00 AM EST capsule 90 TAKE ONE CAPSULE BY MOUTH THREE TIMES A DAY TAKE ONE CAPSULE BY MOUTH THREE TIMES A DAY SOLD: 03/31/2019 [facility] 40 mg 02/28/2019 12:00:00 AM EST tablet 30 TAKE ONE TABLET BY MOUTH EVERY DAY DIRECTED WITH FOOD TAKE ONE TABLET BY MOUTH EVERY DAY DI RECTED WITH FOOD SOLD: 03/02/2019 [facility] 40 mg 02/26/2019 12:00:00 AM EST tablet 30 TAKE ONE TABLET BY MOUTH EVERY DAY FOR DEPRESSION/ANXIETY TAKE ONE TABLET BY MOUTH EVERY DAY FOR DEPRESSION/ANXIETY SOLD: 03/02/2019 [facility] 0.5 mg 02/26/2019 12:00:00 AM EST tablet 60 TAKE ONE TABLET BY MOUTH TWICE A DAY NEEDED MAXIMUM DAILY DOSE = TWO TABLETS TAKE ONE TABLET BY MOUTH TWICE A DAY NEEDED MAXIMUM DAILY DOSE = TWO TABLETS SOLD: 03/02/2019 [facility] 500 mg 01/29/2019 12:00:00 AM EDT tablet 14 TAKE ONE TABLET BY MOUTH TWICE A DAY TAKE ONE TABLET BY MOUTH TWICE A DAY SOLD: 04/30/2019 [facility] 600 mg 10/31/2018 12:00:00 AM EDT tablet 90 TAKE ONE TABLET BY MOUTH THREE TIMES A DAY TAKE ONE TABLET BY MOUTH THREE TIMES A DAY SOLD: 03/31/2019 [facility] Multiple Vitamins-Minerals (MULTIVITAMIN WITH MINERALS) tabl et [id number] 10/19/2018 12:00:00 AM EDT 2 {tbl} Oral active Take 2 tablets by mouth daily [facility] Vitamin B 12 0.5 MG Oral Tablet cyanocob alamin ([facility] VITAMIN B-12) 500 MCG tablet cyanocobalamin ([facility] VITAMIN B-12) 500 MCG tablet 10/19/2018 12:0 0:00 AM EDT 1000 ug Oral active Take 2 tablets (1,000 mc g total) by mouth daily [facility] 2 mg 09/07/2018 12:00:00 AM EDT tablet 60 TAKE ONE TABLET BY MOUTH THREE TIMES A DAY NEEDED TAKE ONE TABLET BY MOUTH THREE TIMES A DAY NEEDED S OLD: 03/31/2019 [facility] Insurance Providers Payer name Policy type / Coverage type Policy ID Covered green party ID Covered green party's relationship to damon Policy Damon Plan Information [facility] [id number] SP [id number] UNHC COMMUNITY PLAN MCDHMO [id number] SP [id number] [facility] COMMUNTY PLAN [id number] 18 [id number] UNHC COMMUNITY PLAN XIX [id number] 18 [id number] Managed Care - UHC Community Plan P [id number] S [id number] Medicaid S [id number] S [id number] Managed Care - [facility] Community Plan P [id number] S [id number] [facility](MCAID) O [id number] S [id number] Managed Care - [facility] P [id number] S [id number] [facility] MEDICAID [id number] Chikis [id number] [facility] MEDICAID [id number] Medicaid S [id number] S [id number] Uhc-Community Plan-Ernie Commercial [id number] Self [id number] [facility]-Community Plan-[facility] Commercial [id number] Self [id number] [facility] MEDICAID PI PI Uhc Community Plan Commercial [id number] Self [id number] Managed Care - [facility] P [id number] S [id number] Uh Community Plan Commercial [id number] Self [id number] Uh Community Plan Commercial [id number] Self [id number] Uh Community Plan Commercial [id number] Self [id number] Medicaid S [id number] S [id number] UNITED HEALTHCARE [id number] S [id number] UNITED HEALTHCARE [id number] S [id number] BLUE CROSS [id number] S [id number] UNHC COMMUNITY PLAN MCDHMO [id number] SP [id number] Managed Care - [facility] P [id number] S [id number] Managed Care - [facility] P [id number] S [id number] Managed Care - [facility] [employer] P [id number] S [id number] [facility] Ernie/MCR Health Maintenance Organization (HMO) [id number] Self [id number] Medicaid S [id number] S [id number] UNITED [facility]CARE [id number] S [id number] [facility] Comm Plan Medicaid F [id number] SELF [id number] UNHC COMMUNITY PLAN MCDHMO [id number] SP [id number] [facility] Comm Plan Medicaid F [id number] SELF [id number] [facility] Comm Plan Medicaid F [id number] SELF [id number] MEDICAID [id number] S [id number] UNHC COMMUNITY PLAN MCDHMO [id number] SP [id number] Managed Care - [facility] P [id number] S [id number] UNHC COMMUNITY PLAN MCDHMO [id number] SP [id number] Medicaid S [id number] S [id number] Managed Care - [facility] P [id number] S [id number] [facility] Care Hmo Commercial Self [facility] Ernie/MCR Health Maintenance Organization (HMO) Self UNHC COMMUNITY PLAN MCDHMO [id number] SP [id number] [facility] [id number] S [id number] [facility] [id number] S [id number] MEDICAID [id number] S [id number] BLUE CROSS [id number] S [id number] BLUE CROSS [id number] S [id number] MEDICAID [id number] S [id number] Managed Care - [facility] P [id number] S [id number] Medicaid S [id number] S [id number] UNITED HEALTHCARE UNAVAILABLE S UNAVAILABLE MEDICAID [id number] SP [id number] MEDICAID [id number] SP [id number] SELF PAY UNAVAILABLE SP UNAVAILA BLE MEDICAID P [id number] S [id number] HMO BLUE [id number] SP [id number] BLUE CROSS [place] PLAN [id number] SP [id number] BLUE CROSS [id number] S [id number] Problems, Conditions, and Diagnoses Code Display Name Description Problem Type Effective Dates Data Source(s) V74.5 Encounter for screening for infections with a predominantly sexual mode of transmission Encounter for screening for infections w ith a predominantly sexual mode of transmission 05/23/2019 02:21:48 PM [facility] 626.8 Missed period Missed period 05/23/2019 02:21:48 PM [facility] [id number] Unspecified hearing loss, bilateral Unsp ecified hearing loss, bilateral 05/23/2019 02:21:48 PM [facility] 709.9 Skin lesion Skin lesion 05/23/2019 02:21:48 PM [facility] 112.0 Candidiasis of mouth Candidiasis of mouth 05/23 02:21:48 PM [facility] [id number] Acute serous otitis media, bilateral Acu te serous otitis media, bilateral 05/23/2019 02:21:48 PM [facility] Results ID Date Data Source [id number] 04/29/2020 04:02:00 PM [facility] Name Value Range Interpretation Code Description Data Crystal rce(s) Supporting Document(s) Choriogonadotropin.intact [Units/volume] in Serum or Plasma 3492.0 mI U/mL [facility] Interpr etation: Less than 5 mU/mL: Negative 6-10 mU/mL: Borderline (suggest repeat in 48 hours) >10: Positive Approx HCG range (mU/mL) Weeks post LMP 5.4-708 mU/mL 3-4 Weeks 217-98541 mU/mL 5-6 Weeks 4059-955897 mU/mL 7-8 Weeks 96873-112536 mU/mL 9-10 Weeks 49171-68524 mU/mL 12-14 Weeks 91855-58577 mU/mL 15-16 Weeks 8240- 76164 mU/mL 17-18 Weeks ID Date Data Source [id number] 04/27/2020 09:06:00 PM [facility] 1 OrderSheet [facility] Emergency Department [address] [place] [address] Phone #: ext- [phone] 04/27/2020 20:43 Patient: KENTRELL MONK Sex: F : 1990 Age: 30yWEIGHT:71.6 kg (M) HEIGHT:67 inches (M) BMI:24.7ALLERGIES: No Known Drug AllergyCHIEF COMPLAINT: pelvic painDIAGNOSIS: Patient currently , Ectopic pregnancyLAB ORDERSOrder Description Priority Entered Acknowledged InitialedCBC w Diff STAT 21:10 04/27/2020 21:22 Gerber Dunbar Riccardo Rachel R.N. M.D.;CMP STAT 21:04/27/2020 21:22 Gerber Dunbar Riccardo Rachel R.N. M.D.;Type Rh STAT 21:04/27/2020 21:22 Gerber Dunbar Riccardo Rachel R.N. M.D.;Urinalysis (Clean STAT 21:04/27/2020 21:22 Manjinder,Catch) Justus Mayes R.N., M.D.;HCG Serum Quant STAT 21:04/27/2020 21:22 Gerber Dunbar Riccardo Rachel R.N. M.D.;DIAGNOSTIC STUDY ORDERSOrder Description Priority Entered Acknowledged InitialedUS OB 1ST TRI W STAT 22:04/27/2020 22:58 Manjinder,TV IF NEEDED Justus Mayes R.N.(Oxygen?(No)) Shanon;(IV?(Yes)) Reason for Study: pelvic pain, rt>suprapubic, [id number], LMP:96-53-75BDNGNMIPKO/IV/DRIP/FLUID ORDERSOrder Description Priority Entered Acknowledged InitialedNS IV 1000 mL 21:04/27/2020 21:23 Manjinder,Bolus: : Bolus 1000 Justus Mayes R.NGlendymL (X1) MGlendyDGlendy;GENERAL ORDERS 2 OrderSheet [facility] Emergency Department [address] [place] [address] Phone #: ext- [phone] 04/27/2020 20:43 Patient: KENTRELL MONK Sex: F : 1990 Age: 30 yOrder Description Priority Entered Acknowledged InitialedNPO 21:04/27/2020 21:22 Gerber Dunbar Riccardo Rachel R.N. M.D.;[Electronically signed by Antonella Dunbar R.N. (00:53 04/28/2020)][Electronically signed by Justus Mayes M.D. (00:56 04/28/2020)][Electronically locked by Antonella Dunbar R.N. (00:53 04/28/2020)] Name Value Range Interpretation Code Description Data Crystal rce(s) Supporting Document(s) ID Date Data Source [id number] 04/27/2020 09:06:00 PM [facility] 1 Medication Reconciliation Report [facility] Emergency Department [address] [place] [address] Phone #: ext- [phone] 04/27/2020 20:43 Patient: KENTRELL MONK Sex: F : 1990 Age: 30yWeight: 71.6 kgHeight/Length: 67 in.BMI: 24.7ALLERGIES: No Known Drug AllergyThe patient's Home Medications are listed below:CONTINUE TAKING THE FOLLOWING MEDICATIONS: B12 Fast Dissolve Oral (5000 mcg), daily Calcium 500 Oral, 2x a day D3 Adult Oral, daily Vitamins OralThe source(s) of the original Home Medication information:Not obtained.The following Medications were given to the patient in the Emergency Department:NS [IV] IV Fluids bolus 1000 mL over 1 hour(s), administered: 21:23 04/27/2020The following Medications were prescribed to the patient:None. Name Value Range Interpretation Code Description Data Crystal rce(s) Supporting Document(s) ID Date Data Source [id number] 04/27/2020 09:06:00 PM [facility] 1 Medication Administration Record [facility] Emergency Department [address] [place] [address] Phone #: ext- [phone] 04/27/2020 20:43 Patient: KENTRELL MONK Sex: F : 1990 Age: 30yWeight: 71.6 kgHeight/Length: 67 inBMI: 24.7ALLERGIES: No Known Drug Allergy Date/Time Medication Administered Medication OrderedStart NS [IV] NS IV 1000 mL Bolus: : Bolus [id number] 04/27/2020 Dose: IV Fluids mL (X1)Antonella Dunbar R.N. Bolus: 1000 mL over 1 hour(s)---- Dispensed: 1000 mL bagStop Site: #1 left AC00:51 04/28/2020Antonella Dunbar R.N. Name Value Range Interpretation Code Description Data Crystal rce(s) Supporting Document(s) ID Date Data Source [id number] 04/27/2020 09:06:00 PM EST [facility] 1 General Instructions [facility] Emergency Department [address] [place] [address] Phone #: ext- [phone] 04/27/2020 20:43 Patient: KENTRELL MONK Sex: F : 1990 Age: 30yFirst trimester ; positive test in emergency department. (Early).INSTRUCTIONS No strenuous activity until released. Drink plenty of fluids. Do not smoke. No alcohol. (PLEASE CALL [facility] TOMORROW FOR APPOINMENT ON 04-29 OR 04-30 FOR REPEAT QUANTITATIVE B-HCG TO MAKE SURE YOU DO NOT HAVE AN ECTOPIC VS A NORMAL ONE;RETURN TO ER IF INCREASE IN ABDOMINAL PAIN OR BLEEDING).Warnings: Further evaluation is necessary in order to conduct further tests (DESIGN/ANIMATION INSTRUCTOR). It is very importantto follow up with a healthcare provider.GENERAL WARNINGS: Return or contact your physician immediately if your condition worsens orchanges unexpectedly, if not improving as expected, or if other problems arise. Specifically return if pain,vomiting, bleeding, breathing difficulty or fever greater than 102 degrees F and not controlled byacetaminophen.Your Current Medications: Your current home medications have been reviewed.CONTINUE TAKING THE FOLLOWING MEDICATIONS:B12 Fast Dissolve Oral : Tablet Disintegrating 5000 mcg, daily.Calcium 500 Oral : 2x a day.D3 Adult Oral : daily. Vitamins Oral.Follow-up:Return to the emergency department as needed. Follow up with an plant clerk in two days even if well.Call for an appointment. Reason for referral: evaluation and treatment. Summary of care provided topatient via paper.Understanding of the discharge instructions verbalized by patient. Expected course of illness, dischargeinstructions, activity level, diet, follow-up appointment and risks and benefits of treatment reviewed withpatient and understanding verbalized. Agrees to plan of care.Follow-up with: [facility], , , [address], [place], [facility] Follow up in two days even if well. Call for an appointment. Reason for referral: evaluation and treatment. 2 General Instructions [facility] Emergency Department [address] [place] [address] Phone #: ext- [phone] 04/27/2020 20:43 [id number] Sex: F : 1990 Age: 30y Summary of care provided to patient via paper. ADDITIONAL INFORMATIONPregnancyYour exam today shows that you are . symptomsDuring your body's hormones change. This causes physical and emotional changes. Thisis normal. Knowing what to expect is important for your piece of mind and so you know when to seekhelp for a problem. Here are some of the most common symptoms: Morning sickness or nausea. This can happen any time of the day or night. Tender, swollen breasts Need to urinate frequently Tiredness or fatigue Dizziness Indigestion or heartburn Food cravings or turn-offs 3 General Instructions [facility] Emergency Department [address] [place] [address] Phone #: ext- [phone] 04/27/2020 20:43 Patient: KENTRELL MONK Sex: F : 1990 Age: 30y Constipation Emotional changes. This can range from anxiety to excitement to depression.General care for a healthy pregnancyHere are things you can do to help make sure your baby is born healthy: Rest when you feel tired. This is especially true in the later months of . Drink more fluids. Your body needs more fluids than you may be used to. Drink 8 to10 glasses of juice, milk, or water every day. Eat well-balanced meals. Eat at regular times to give your body enough protein. You can expect to gain about 30 pounds during the . Don't try to diet or lose weight while you are . Take a vitamin every day. This helps you meet the extra nutritional needs of . Don't take any other medicine during your unless your healthcare provider tells you to. This includes prescription medicines and those you buy over the counter. Many medicines can harm the growing baby. If you have nausea or vomiting, don't eat greasy or fried foods. Eat several smaller meals throughout the day rather than 3 large meals. If you smoke, you must stop. The nicotine you breathe in goes right to the baby. Stay away from alcohol, even in moderate amounts. Daily drinking will harm your baby and can cause permanent brain damage. Don't use recreational drugs, especially cocaine, crack, and heroin. These will harm your baby. Also avoid marijuana. If you were using recreational drugs or prescribed medicine when you found out that you were , talk with yo ur healthcare provider about possible effects on your growing baby. If you have medical problems that you need to take medicine for, talk with your healthcare provider.Follow-up careCall your healthcare provider to arrange for care. care is important. You can seeyour family provider, a specialist (plant clerk), a forest economics professor, or a primary care clinic.When to seek medical advice 4 General Instructions [facility] Emergency Department [address] [place] [address] Phone #: ext- [phone] 04/27/2020 20:43 Patient: KENTRELL MONK Sex: F : 1990 Age: 30yCall your healthcare provider right away if any of these occur: Vaginal bleeding Pain in your belly (abdomen) or back that is moderate or severe Lots of vomiting, or you can't keep any fluids down for 6 hours Burning feeling when you urinate Headache, dizziness, or rapid weight gain Fever Vision changes or blurred vision [employer]. [address] [place] [address]. All rights reserved. This information is not intended as asubstitute for professional medical care. Always follow your healthcare professional's instructions.Abdominal Pain and Early PregnancyThe tests you had show that you are , but the exact cause of your pain isn't clear.Some pain and bleeding are common early in . Often they stop, and you can go on to havea normal and baby. Other times the pain or bleeding can be signs ofa miscarriage or ectopic . An ectopic is a very serious problem. At this time it isunclear if your will continue normally, if you will have a miscarriage, or if you could have anectopic . Below is some information about this.Miscarriage 5 General Instructions [facility] Emergency Department [address] [place] [id number] Phone #: ext- [phone] 04/27/2020 20:43 Patient: KENTRELL MONK Sex: F : 1990 Age: 30yAt this time we don't know whether you will have a miscarriage, or if things will clear up and yourpregnancy will continue normally. We understand that this is emotionally difficult. There is little we cansay to change the way you feel. But understand that miscarriages are common.About 1 or 2 out of every [address] Some end even before you know you are. This happens for a number of reasons, and usually we never figure out why. It's importantyou know that it is not your fault. It didn't happen because you did anything wrong.Having sex or exercising does not cause a miscarriage. These activities are usually safe unless youhave pain or bleeding or your healthcare provider tells you to stop. Even minor falls won't cause amiscarriage. Miscarriages happen because things were not developing as they were supposed to. Nomedicine can prevent a miscarriage.Ectopic pregnancyIn a normal , the fertilized egg attaches to the wall of the womb (uterus). In an ectopic ortubal , the fertilized egg attaches outside the uterus, usually in the fallopian tube. Veryrarely, the egg attaches to an ovary or somewhere else in the abdomen. An ectopic ismuch less common than a miscarriage, but it is very serious. The baby can't survive, and as it growsit can rupture the tube. This can cause internal bleeding and even . Risk factors for an ectopicare: An ectopic in the past Pelvic inflammatory disease (PID) Endometriosis Smoking An IUDAdditional testsBecause we don't know what's causing your symptoms, you will need more tests to figure out whatthe problem is. You may need the following.UltrasoundAn ultrasound can usually find a normal as early as 4 to 5 weeks along. If the ultrasounddoes not show the baby inside the uterus, it means one of the following. You have a normal less than 4 weeks along You are having or recently had a miscarriage You have an ectopic 6 General Instructions [facility] Emergency Department [address] [place] [address] Phone #: [phone] ext- [phone] 04/27/2020 20:43 Patient: KENTRELL MONK Sex: F : 1990 Age: 30yQuantitative HCGThis test measures the amount of a hormone in your blood. Comparing today's test resultto a repeat test in 2 days will show whether you have a normal .LaparoscopyThis is a type of surgery. The healthcare provider will put a tube with a light inside your belly(abdomen) to look directly at your pelvic organs. This test is used when it is not safe to wait 2 days forblood test results.Important informationIf you do have an ectopic , there is a small chance that the growing fetus can tear thefallopian tube. This can cause severe internal bleeding. If this happens, you may have: Sudden severe pain in your lower abdomen Vaginal bleeding Weakness, dizziness, and sometimes faintingIf any of these symptoms occur: Call 911or return right away to the hospital. Don't drive yourself. Don't go to your healthcare provider's office or to a clinic. Go to the hospital.Home careFollow these guidelines to help care for yourself at home: Rest until your next exam. Don't do anything strenuous. Eat a light diet with foods that are easy to digest. Don't have sex until your healthcare provider says it's OK.Follow-up careFollow up with your healthcare provider, or as advised. If you were told to have a repeat blood test in2 days, it's important to get it done.If you had an X-ray or ultrasound, a radiologist will review it. You will be told of any new findings thatmay affect your care. 7 General Instructions [facility] Emergency Department [address] [place] [address] Phone #: ext- [phone] 04/27/2020 20:43 Patient: KENTRELL MONK Sex: F : 1990 Age: 30yCall 911Call 911 if you have any of these: Severe pain and very heavy bleeding Severe lightheadedness, passing out, or fainting Rapid heart rate Trouble breathing Confused or difficulty waking upWhen to seek medical adviceCall your healthcare provider right away if any of these occur: The pain in your abdomen gets worse, either suddenly or gradually. You are dizzy or weak when you stand. You have heavy vaginal bleeding. This means soaking 1 pad an hour for 3 hours. You have vaginal bleeding for more than 5 days. You have repeated vomiting or diarrhea. The pain in your abdomen moves to the lower right. You have blood in your vomit or bowel movements. This will be dark red or black. You have a fever of 100.4F (38C) or higher, or as directed by y our healthcare provider. [id number] [employer]. [address] [place] [address]. All rights reserved. This information is not intended as asubstitute for professional medical care. Always follow your healthcare professional's instructions. You have been given the following additional information: , New Dx Abdominal Pain, Early No strenuous activity until released. 8 General Instructions [facility] Emergency Department [address] [place] [address] Phone #: ext- [phone] 04/27/2020 20:43 Patient: KENTRELL MONK Sex: F : 1990 Age: 30y(Electronically signed by Justus Mayes M.D. 04/28/2020 00:56) Name Value Range Interpretation Code Description Data Crystal rce(s) Supporting Document(s) ID Date Data Source [id number] 04/27/2020 09:06:00 PM [facility] 1 Clinical Report - Nurses [facility] Emergency Department [address] [place] [address] Phone #: ext- [phone] 04/27/2020 20:43 Patient: KENTRELL MONK Sex: F : 1990 Age: 30yTRIAGEArrived by private vehicle. Historian: patient. Accompanied by family.Acuity: LEVEL 3.Chief Complaint: ABDOMINAL PAIN.Alert. No acute distress.Onset. (2 days ago). ( PT had a positive home test in the beginning on April and believesshe is around 8 weeks . Over the past 2 days, she has had sharp suprapubic abdominal pain.She denies any bleeding or abnormal discharge. 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 SEPSIS SCREEN NEGATIVE. No suspected or confirmedsigns of infection present.AGUSTÍN COMA SCORE: 15- eyes open- spontaneous (4); best verbal response- oriented (5); bestmotor response- obeys commands (6). --20:56 04/27/20 Antonella Dunbar R.N.20:44 04/27/20. BP: 136/78. MAP: 97. HR: 86. RR: 18. O2 saturation: 100%. Temp: 98.2 F. Pain levelnow: 8/10. --20:56 04/27/20 Antonella Dunbar R.N.Weight: 71.6 kg measured. Height/Length: 67 inches Measured. BMI: 24.7. --20:55 04/27/20 Antonella Dunbar R.N.MedicationsPrenatal Vitamins Oral. --20:49 04/27/20 Antonella Dunbar R.N. D3 Adult Oral, daily. --20:50 04/27/20 Antonella Dunbar R.N. Calcium 500 Oral, 2x a day. --20:50 04/27/20 Antonella Dunbar R.N. B12 Fast Dissolve Oral (Tablet Disintegrating 5000 mcg), daily. --20:50 04/27/20 Antonella Dunbar R.N.AllergiesNo Known Drug Allergy. --20:51 04/27/20 Antonella Dunbar R.N.PROBLEMS:Scoliosis.Degenerative Joint Disease.Hypertension.Cervical cancer. --20:52 04/27/20 Antonella Dunbar R.N. 2 Clinical Report - Nurses [facility] Emergency Department [address] [place] [address] Phone #: ext- [phone] 04/27/2020 20:43 Patient: KENTRELL MONK Sex: F : 1990 Age: 30yADDITIONAL SURGERIES:Ankle surgery.Cervical surgery.Cholecystectomy.Hernia Repair. --20:52 04/27/20 Antonella Dunbar R.N.Justin-en-Y gastrojejunostomy [2019]. --21:20 04/27/20 Justus Mayes M.D.The following entry was struck by Justus Mayes M.D., 21:20 04/27/20Roux-en-Y gastrojejunostomy. --20:51 04/27/20 Antonella Costa R.N..HistoryPAST MEDICAL HX: Immunizations: up-to-date. Last normal menstrual period- Mar 26. 15. Para4. Abortions 10. Currently .SOCIAL HX: Light tobacco smoker- less than 1/2 a pack per day. No alcohol use or drug use. No recenttravel. No known contact with a sick individual. She was offered HIV testing but declined and hepatitis Ctesting but declined. She has not traveled outside the [place]Infectious disease exposure: The patient was not exposed to C-diff, MRSA, VRE, CRE or Coronavirus.SELF HARM ASSESSMENT: Self harm assessment was performed. The patient answered "no" to thequestion(s) "Have you recently felt down, depressed, or hopeless?", "Do you have thoughts of harming orkilling yourself?", "Do you have a plan for harming or killing yourself?", "Have you recently had thoughtsabout harming or killing others?", "Do you have any dangerous items in your possession?", "Have younoticed less interest or pleasure in doing things?", "Are you here because you tried to hurt yourself?" and"Have you ever tried to hurt yourself before today?".ABUSE ASSESSMENT: No report of abuse.NUTRITIONAL RISK ASSESSMENT: The nutritional risk assessment revealed no deficiencies.FUNCTIONAL ASSESSMENT: Functional assessment: no impairments noted.LEARNING NEEDS ASSESSMENT: The learning needs assessment revealed no barriers.FALL RISK ASSESSMENT: Fall risk assessment completed. No risk factors identified.SKIN INTEGRITY ASSESSMENT: Skin integrity risk assessment completed. No skin integrity riskidentified. --20:56 04/27/20 Antonella Dunbar R.N.InterventionsTo treatment room. --20:56 04/27/20 Antonella Dunbar R.N.PHYSICAL ASSESSMENTAmbulatory to room. 3 Clinical Report - Nurses [facility] Emergency Department [address] [place] [address] Phone #: ext- [phone] 04/27/2020 20:43 Patient: KENTRELL MONK Sex: F : 1990 Age: 30y GENERAL / NEURO / PSYCH: Alert. Oriented X 4. Appears in no acute distress. HEENT: Mucous membranes are pink. RESPIRATORY: Respirations not labored. Breath sounds within normal limits. CVS: Capillary refill less than 2 seconds. GI / : Abdomen soft. Abdominal tenderness in the suprapubic area. heart tones: unable to obtain. Bowel sounds within normal limits. ( Pt has had positive home test and believes she is around 8 weeks). SKIN: Skin is warm and dry. --21:01 04/27/20 Antonella Dunbar R.N.NURSING PROGRESS NOTESPatient gowned. Reassurance given. Call light placed in reach. Side rails up. Patient ready forevaluation- ED physician notified. --20:56 04/27/20 Antonella Dunbar R.N. 21:22 04/27/2020 Site #1 started via IV in the left antecubital space with an 20g angiocath, with aseptic technique and good blood return; one attempt. Blood drawn: rainbow set and green tube(s). Saline lock flushed with 10 mL saline. --21:22 04/27/20 Antonella Dunbar R.N. 21:23 04/27/2020 Started bag #1 1000 mL IV Fluids NS; bolus of 1000 mL over 1 hour(s) via site #1 via buretrol. Allergies verified and confirmed 5 rights. IV patency established. IV site checked: no pain, redness, or swelling. IV flushed thoroughly pre- and post- medication administration. Information reviewed with patient including reason for taking this medication. Verbalizes understanding. --21:23 04/27/20 Antonella Dunbar R.N. The patient is calm and resting quietly. Patient waiting for lab results. --22:05 04/27/20 Antonella Dunbar R.N. Patient transported to [facility] by wheelchair with mask and maintenance technician 3rd shift. --22:58 04/27/20 Antonella Dunbar R.N. 22:59 04/27/20. BP: 130/69. MAP: 89. HR: 77. RR: 18. O2 saturation: 98%. --22:59 04/27/20 Antonella Dunbar R.N. 23:20 04/28/20. Patient returned from [facility] by wheelchair with maintenance technician 3rd shift. --00:20 04/28/20 Antonella Dunbar R.N. The patient is calm and resting quietly. Patient waiting for radiology results. --00:20 04/28/20 Antonella Dunbar R.N.DISPOSITION / DISCHARGE 00:51 04/28/2020 Site #1 removed upon discharge. Catheter intact. Manual pressure and bandaid applied. --00:51 04/28/20 Antonella Dunbar R.N. 00:51 04/28/2020 IV Fluids NS via IV site #1 Discontinued: bag #1 completed upon discharge. Total amount infused: 1000 mL. IV patency established. IV site checked: no pain, redness, or swelling. IV 4 Clinical Report - Nurses [facility] Emergency Department [address] [place] [address] Phone #: ext- [phone] 04/27/2020 20:43 Patient: KENTRELL MONK Sex: F : 1990 Age: 30y flushed thoroughly. --00:51 04/28/20 Antonella Dunbar R.N. Condition at departure: improved and stable. No learning barriers present. Reviewed referral to an plant clerk. Work note given. Patient verbalized understanding. Written instructions provided in Mauritian. ( Instructed pt to follow up with ob in next 2 days for possible ectopic . PT verbalizes undersanding). The patient was discharged by the physician. She was discharged home. She left ambulatory and via private vehicle. Patient driving. --00:53 04/28/20 Antonella Dunbar R.N. 00:51 04/28/20. BP: 111/68. MAP: 82. HR: 61. RR: 18. O2 saturation: 100%. Temp: 98.2 F. Pain level now: 05/20. --00:53 04/28/20 Antonella Dotson R.N.Locked/Released at 04/28/2020 00:53 by Antonella Dunbar R.N. Name Value Range Interpretation Code Description Data Crystal rce(s) Supporting Document(s) ID Date Data Source [id number] 0001 04/27/2020 09:06:00 PM EST [facility] 1 Clinical Report - Physicians/Mid Levels [facility] Emergency Department [address] [place] [address] Phone #: ext- [phone] 04/27/2020 20:43 [id number] Sex[facility] F : 1990 Age: 30y Time Seen: 20:50 04/27/2020; initial patient contact. Arrived- By private vehicle. Historian- patient. Disposition decision: 00:39 04/28/2020.HISTORY OF PRESENT ILLNESS Chief Complaint: PELVIC PAIN. This started 2 days ago and still present. It was gradual in onset and has been intermittent. The symptoms are described as moderate. Modifying factors- relieved by rest. Not worsened by anything. The patient has had moderate, intermittent, crampy suprapubic pelvic pain. No abdominal pain, vaginal pain, low back pain, flank pain or abnormal bleeding. No vaginal discharge, pain with urination, urinary frequency, urgency of urination or hematuria. Last normal menstrual period- 03-26-20. Currently : LNMP: 03-26-20 EDC: 12-31-20 [id number] 4-5 weeks. In 1st trimester. confirmed with home test. Has had no care. Similar symptoms previously. None. Recent medical care: Not recently seen/assessed.REVIEW OF SYSTEMSThe patient has had nausea. No vomiting, diarrhea, black stools, headache or fever. No chills, anorexia,eye discomfort, sore throat or cough. No difficulty breathing, chest pain, skin rash, enlarged lymph nodesor joint pain. All other systems reviewed and are negative.PAST HISTORYSee nurses notes. Problems: Scoliosis. Degenerative Joint Disease. Hypertension. Cervical cancer. Additional Surgeries: Ankle surgery. Cervical surgery. Cholecystectomy. Hernia Repair. Justin-en-Y gastrojejunostomy [2019]. Medications: 2 Clinical Report - Physicians/Mid Levels [facility] Emergency Department [address] [place] [address] Phone #: ext- [phone] 04/27/2020 20:43 Patient: KENTRELL MONK Sex: F : 1990 Age: 30y B12 Fast Dissolve Oral (Tablet Disintegrating 5000 mcg), daily. Calcium 500 Oral, 2x a day. D3 Adult Oral, daily. Vitamins Oral. Allergies: No Known Drug Allergy.SOCIAL HISTORYLight tobacco smoker- less than 1/2 a pack per day. No alcohol use or drug use.ADDITIONAL NOTESThe nursing notes have been reviewed with agreement regarding the chief complaint, HPI, ROS, PMH andpatient medications and allergies.PHYSICAL EXAMVital Signs: 04/27/2020 20:44 BP: 136/78. MAP: 97. HR: 86. RR: 18. O2 saturation: 100%. Temp: 98.2 F.Pain level now: 8/10. Have been reviewed. Oxygen saturation normal.Appearance: Alert. Oriented X3.HEENT: Normal external inspection.ENT: Pharynx normal.Neck: Neck supple.CVS: Heart sounds normal.Respiratory: No respiratory distress. Painless inspiration. Breath sounds normal. Chest nontender.Abdomen: Soft. Mild tenderness in the right lower quadrant and lower abdomen. No guarding or reboundtenderness. Bowel sounds normal. No organomegaly. No mass.Back: Normal external inspection. No CVA tenderness.Skin: Skin warm and dry. Normal skin color. No rash. Normal skin turgor.Extremities: Extremities nontender. No lower extremity edema.Neuro: Oriented X 3. Mood/affect normal. No motor deficit. No sensory deficit.LABS, X- RAYS, AND EKGPelvic Sonogram: REPORT SUBMISSION DATE: Apr 28, 2020 12:21:39 AM EST NAME: KENTRELL MONK STUDY INITIATED: Apr 27, 2020 10:59:23 PM EST STUDY RECEIVED: Apr 27, 2020 11:39:59 PM EST GENDER: F MODALITY TYPE: US\\SR : 86 DESCRIPTION: US OB 1ST TRI W TV IF NEEDED INSTITUTION: [facility] ORDERING PHYSICIAN: Justus Mayes 3 Clinical Report - Physicians/Mid Levels [facility] Emergency Department [address] [place] [address] Phone #: ext- [phone] 04/27/2020 20:43 Patient: KENTRELL MONK Sex: F : 1990 Age: 30yPATIENT HISTORY:ULTRASOUND PELVIS TRANSABDOMINAL AND TRANSVAGINALCOMPARISON: NoneHISTORY: Sharp, stabbing pelvic painTECHNIQUE:Ultrasound images through the pelvis obtained via transabdominal and transvaginal approach.FINDINGS:There is a small cystic structure in the endometrial cavity measuring 4 mm. A fluid collection seen adjacentto this measuring 2.8 x 1.9 x 0.8 cm. There is no pole or yolk sac identified. Right ovarian follicle isnoted measuring 2.1 cm. There is a 2 cm hypoechoic structure in the right adnexa. Left ovary isunremarkable. Doppler flow is detected in the ovaries.ImpressionCystic structure in the endometrial cavity, could represent an early intrauterine gestation. There is a fluidcollection adjacent to this which may represent jay- gestational hemorrhage. Indeterminate hypoechoicstructure measuring 2 cm in the right adnexa, possibly a paraovarian cyst. A short-term followup study issuggested to assess development and also exclude pseudo-gestational sac with an early right ectopicpregnancy which could have a similar appearance.Electronically signed on Apr 28, 2020 12:21:39 AM EST by:Shahbaz Koo, [place] [employer]. Study type: transvaginal evaluation. The study was interpretedby the radiologist.Laboratory Tests: Laboratory tests have been ordered, with results reviewed and considered in themedical decision making process.US OB TRANSVAGINAL RIN: (NARESH: 04/27/2020 23:07) ( MsgRcvd 04/27/2020 23:40) In ProgressUS TRANSVAGINAL UTEREASON FOR OBS: pelvic painTRANSPORTATION: W IV? N O2? NPREGNANCY STATUS: ISOLATION nUS OB 1ST TRI W TV IF NEEDED: (NARESH: 04/27/2020 22:12) ( MsgRcvd 04/28/2020 00:22) Finalresults Test Result Flag Units (Reference) US OB 1ST [place] [address] ---------NAME--------- NUMBER SEX AGE ADMIT DISC. XRAY# F/C TYPE 4 Clinical Report - Physicians/Mid Levels [facility] Emergency Department [address] [place] [address] Phone #: ext- [phone] 04/27/2020 20:43 Patient: KENTRELL MONK Sex: F : 1990 Age: 30y LACHO Travis [id number] F 30 04/27/20 [id number] X6B E/R DATE OF : 1990 M/R# [id number] #: [id number] TR-04 LOCATION: EMERGENCY DEPT TRANSCRIBED: 04/28/20 21 IF US OB 1ST TRI W TV IF NEEDED 10178 COMPLETE KNB 2481 Reason(s): pelvic pain, rt>suprapubic, [id number], LMP:03-26-20 -- PHYSICIAN: GERBER ALMARAZ -- -- R A D I O L O G Y R E P O R T -- PATIENT HISTORY: sharp, stabbing pelvic pain ULTRASOUND PELVIS TRANSABDOMINAL AND TRANSVAGINAL -- -- COMPARISON: None -- HISTORY: Sharp, stabbing pelvic pain -- -- TECHNIQUE: -- Ultrasound images through the pelvis obtained via transabdominal and transvaginal approach. -- -- FINDINGS: -- There is a small cystic structure in the endometrial cavity measuring 4 mm. A fluid collection seen adjacent to this measuring 2.8 x 1.9 x 0.8 cm. There is no pole or yolk sac identified. Right ovarian follicle is noted measuring 2.1 cm. There is a 2 cm hypoechoic structure in the right adnexa. Left ovary is unremarkable. Doppler flow is detected in the ovaries. -- -- IMPRESSIONS: -- Cystic structure in the endometrial cavity, could represent an early intrauterine gestation. There is a fluid collection adjacent to this which may represent jay-gestational hemorrhage. Indeterminate hypoechoic structure measuring 2 cm in the right adnexa, possibly a paraovarian cyst. A short-term followup study is suggested to assess development and also exclude pseudo-gestational sac with an early right ectopic which could have a similar appearance. -- -- Electronically Signed By: Lj Castro M.D. , Radiologist Date/Time: 04/28/20 00:21CBC w Diff: (NARESH: 04/27/2020 21:24) ( MsgRcvd 04/27/2020 21:44) Final results Test Result Flag Units (Reference) CBC W/AUTOMATED DIFF COMPLETE BLOOD COUNT WBC 5.7 10/uL (4.2 - 11.0) RBC 4.50 10/uL (4.20 - 5.40) HEMOGLOBIN 14.8 g/dL (12.0 - 16.0) HEMATOCRIT 40.6 % (37.0 - 47.0) MCV 90.2 fL (81.0 - 101) MCH 32.9 pg (27.0 - 34.0) MCHC 36.5 H g/dL (31.0 - 36.0) RDW 11.9 % (11.5 - 14.5) 5 Clinical Report - Physicians/Mid Levels [facility] Emergency Department [address] [place] [address] Phone #: ext- [phone] 04/27/2020 20:43 Patient: KENTRELL MONK Sex: F : 1990 Age: 30y PLATELETS 172 10/uL (150 - 450) MPV 11.9 H fL (7.4 - 10.4) NEUT 61.9 % (37.0 - 80.0) LYMPH 30.1 % (25.0 - 40.0) MONO 5.7 % (3.0 - 8.0) EOS 1.6 % (0.0 - 7.0) BASO 0.5 % (0.0 - 2.5) %IG 0.2 H % (0.0 - 0.0) %NRBC 0.0 % (0.0 - 0.0) #NEUT 3.55 10/uL (2.00 - 6.90) #LYMPH 1.73 10/uL (0.60 - 3.40) #MONO 0.33 10/uL (0.00 - 0.90) #EOS 0.09 10/uL (0.00 - 0.70) #BASO 0.03 10/uL (0.00 - 0.20) #IG 0.01 10/uL (0.00 - 0.10) #NRBC 0.00 10/uL (0.00 - 0.00) MANUAL DIFF NOT INDICATED RBC MORPH NOT INDICATEDCMP: (NARESH: 04/27/2020 21:24) ( MsgRcvd 04/27/2020 22:08) Final results Test Result Flag Units (Reference) COMPREHENSIVE METABOLIC PANEL COMPREHENSIVE METABOLIC PANEL SODIUM 136 mEq/L (134 - 153) POTASSIUM 3.5 L mEq/L (3.6 - 5.0) CHLORIDE 102 mEq/L (98 - 107) CO2 25 MEQ/L (22 - 30) GLUCOSE 83 MG/DL (70 - 99) BUN 8 MG/DL (7 - 21) CREATININE 0.5 L MG/DL (0.7 - 1.5) BUN/CREAT 16 (8 - 27) TOTAL PROTEIN 6.6 G/DL (6.3 - 8.2) ALBUMIN 4.6 G/DL (3.9 - 5.0) GLOBULIN 2.0 L GM/DL (2.4 - 3.2) A/G RATIO 2.3 H (0.8 - 2.0) CALCIUM 8.8 MG/DL (8.4 - 10.2) TOTAL BILI 0.7 MG/DL (0.2 - 1.3) ALKALINE PHOS 64 U/L (38 - 126) SGOT/AST 12 U/L (5 - 40) SGPT/ALT 13 U/L (7 - 56) ANION GAP 9.0 mmol/L (8.0 - 16.0) AGE 30 yrs NON-AA GFR >60 mL/min AFR AMER GFR >60 mL/min Male GFR Int erprentation 20-49 yrs >60 mL/min Lmvudq87-81 yrs >56 mL/min Normal 60-69 yrs >49 mL/min Normal 70-79yrs>42 mL/min Normal 80 and above >35 mL/min Normal Female GFRInterpretation 20-39 yrs >60 mL/min Normal 40-49 yrs >58 mL/minNormal 50-59 yrs >51 mL/min Normal 60-69 yrs >45 mL/min Mjigxa16-38 yrs >39 mL/min Normal 80 and above >32 mL/min NormalType Rh: (NARESH: 04/27/2020 21:24) ( MsgRcvd 04/27/2020 22:13) Final results Test Result Flag Units (Reference) ABO GROUP O RH TYPE NEGATIVE { ABO/RH REENTER O NEGATIVE 6 Clinical Report - Physicians/Mid Levels [facility] Emergency Department [address] [place] [address] Phone #: ext- [phone] 04/27/2020 20:43 ----- Patient: KENTRELL MONK Sex: F : 1990 Age: 30y Urinalysis: (NARESH: 04/27/2020 21:10) ( [facility] 04/27/[facility] 21:31) Final results Test Result Flag Units (Reference) URINALYSIS URINALYSIS SOURCE R COLOR yellow (NORMAL: Yello CLARITY clear (NORMAL: Clear SPEC GRAVITY 1.020 (1.001 - 1.030 pH 6 (5 - 9) GLUCOSE NORM (NORMAL: Negat BILIRUBIN NEG (NORMAL: Negat KETONE NEG (NORMAL: Negat PROTEIN NEG (NORMAL: Negat NITRITE NEG (NORMAL: Negat BLOOD NEG (NORMAL: Negat LEUK EST NEG (NORMAL: Negat UROBILINOGEN 4 (less than 1.0 MICROSCOPIC See Below WBC None Seen (NORMAL: NONE RBC None Seen (NORMAL: NONE EPITHELIAL MODERATE A (NORMAL: NONE BACTERIA None Seen (NORMAL: NONE MUCOUS Trace (NORMAL: NONE Beta-HCG, Quant Serum: (NARESH: 04/27/2020 21:24) ( [facility] 04/27/2020 22:08) Final results Test Result Flag Units (Reference) HCG QUANT 2330.0 mIU/mL Interpretation: Less than 5 mU/mL: Negative 6-10 mU/mL: Borderline (suggest repeat in 48 hours) >10: Positive Approx HCG range (mU/mL) Weeks post LMP 5.4-708 mU/mL 3-4 Weeks 217-02657 mU/mL 5-6 Weeks 4059-443220 mU/mL 7-8 Weeks 13370-895745 mU/mL 9-10 Weeks 98317-58238 mU/mL 12-14 Weeks 77415- 45289 mU/mL 15-16 Weeks 8240-31521 mU/mL 17-18 Weeks.PROGRESS AND PROCEDURESCourse of Care: 22:30 04/27/20. workup all in and reviewed, quant. B-HCG is 2330, pt is O negative,pelvic US ordered 00:36 04/28/20. TV Pelvic US results in and reviewed; pt has either early IU or early rt sided ectopic; pt told about the results and the need to f/u w DESIGN/ANIMATION INSTRUCTOR in 2-3 days for f/u quant B-HCG; pt understands and agrees; pt also advised to return if increase in pain and bleeding; pt feeling better, wants to go home. Patient counseled in person regarding the patient's stable condition, test results, diagnosis and need for follow-up. Patient agrees with plan of care. Disposition: Condition: good and stable. Discharge decision based on the following: patient's condition is stable; patient's condition is improved; patient is ambulatory; patient is active; patient drinking fluids; patient eating; patient's pain is controlled; 7 Clinical Report - Physicians/Mid Levels [facility] Emergency Department [address] [place] [address] Phone #: ext- [phone] 04/27/2020 20:43 Patient: KENTRELL MONK Sex: F : 1990 Age: 30y patient's exam is improved; no seriously abnormal test results; minimally abnormal test results; improving condition on repeat evaluation; social support is good; transportation is available; follow-up is available; clinical impression is consistent with outpatient treatment.CLINICAL IMPRESSION First trimester ; positive test in emergency department. (Early). Rule out right ovarian ectopic .INSTRUCTIONS No strenuous activity until released. Drink plenty of fluids. Do not smoke. No alcohol. (PLEASE CALL [facility] TOMORROW FOR APPOINMENT ON 04-29 OR 04-30 FOR REPEAT QUANTITATIVE B-HCG TO MAKE SURE YOU DO NOT HAVE AN ECTOPIC VS A NORMAL ONE; RETURN TO ER IF INCREASE IN ABDOMINAL PAIN OR BLEEDING). Warnings: Further evaluation is necessary in order to conduct further tests (DESIGN/ANIMATION INSTRUCTOR). It is very important to follow up with a healthcare provider. GENERAL WARNINGS: Return or contact your physician immediately if your condition worsens or changes unexpectedly, if not improving as expected, or if other problems arise. Specifically return if pain, vomiting, bleeding, breathing difficulty or fever greater than 102 degrees F and not controlled by acetaminophen. Your Current Medications: Your current home medications have been reviewed. CONTINUE TAKING THE FOLLOWING MEDICATIONS: B12 Fast Dissolve Oral : Tablet Disintegrating 5000 mcg, daily. Calcium 500 Oral : 2x a day. D3 Adult Oral : daily. Vitamins Oral. Follow-up: Return to the emergency department as needed. Follow up with an plant clerk in two days even if well. Call for an appointment. Reason for referral: evaluation and treatment. Summary of care provided to patient via paper. Understanding of the discharge instructions verbalized by patient. Expected course of illness, discharge instructions, activity level, diet, follow-up appointment and risks and benefits of treatment reviewed with patient and understanding verbalized. Agrees to plan of care. 8 Clinical Report - Physicians/Mid Levels [facility] Emergency Department [address] [place] [address] Phone #: [phone]- [phone] 04/27/2020 20:43 Patient: KENTRELL MOKN Sex: F : 1990 Age: 30y Follow-up with: [facility], , , [address] [place] [address], [id number] Follow up in two days even if well. Call for an appointment. Reason for referral: evaluation and treatment. Summary of care provided to patient via paper.(Electronically signed by Justus Mayes M.D. 04/28/2020 00:56) Name Value Range Interpretation Code Description Data Crystal rce(s) Supporting Document(s) ID Date Data Source [id number] 04/28/2020 12:54:00 AM EST [address] [place] [address] ---------NAME--------- NUMBER SEX AGE ADMIT DISC. XRAY# F/C TYPE LACHO Travis [id number] F 30 04/27/20 04/28/20 [id number] X6B E/R DATE OF : 1990 M/R# [id number] #: [id number] TR-04 LOCATION: EMERGENCY DEPT TRANSCRIBED: 04/28/20 54 IF US OB TRANSVAGINAL [id number] COMPLETED:04/27/20 23:40 KNB 2482 {REASON FOR OBS: pelvic pain PHYSICIAN: GERBER ALMARAZ======= R A D I O L O G Y R E P O R T PATIENT HISTORY:sharp, stabbing pelvic painULTRASOUND PELVIS TRANSABDOMINAL AND TRANSVAGINALCOMPARISON: NoneHISTORY: Sharp, stabbing pelvic painTECHNIQUE:Ultrasound images through the pelvis obtained via transabdominal andtransvaginal approach.FINDINGS:There is a small cystic structure in the endometrial cavity measuring 4 mm. Afluid collection seen adjacent to this measuring 2.8 x 1.9 x 0.8 cm. There is nofetal pole or yolk sac identified. Right ovarian follicle is noted measuring 2.1cm. There is a 2 cm hypoechoic structure in the right adnexa. Left ovary isunremarkable. Doppler flow is detected in the ovaries.IMPRESSIONS:Cystic structure in the endometrial cavity, could represent an earlyintrauterine gestation. There is a fluid collection adjacent to this which mayrepresent jay-gestational hemorrhage. Indeterminate hypoechoic structuremeasuring 2 cm in the right adnexa, possibly a paraovarian cyst. A short-termfollowup study is suggested to assess development and also excludepseudo-gestational sac with an early right ectopic which could have asimilar appearance.Electronically Signed By:Lj Castro M.D. , RadiologistDate/Time: 04/28/20 00:54 Name Value Range Interpretation Code Description Data Crystal rce(s) Supporting Document(s) ID Date Data Source [id number] 04/28/2020 12:21:00 AM [facility] [address] [place] [address] ---------NAME--------- NUMBER SEX AGE ADMIT DISC. XRAY# F/C TYPE LACHO Travis [id number] F 30 04/27/20 [id number] X6B E/R DATE OF : 1990 M/R# [id number] PH#: [id number] TR-04 LOCATION: EMERGENCY DEPT TRANSCRIBED: 04/28/20 21 IF US OB 1ST TRI W TV IF NEEDED [id number] COMPLETED:04/27/20 23:40 KNB 2481 Reason(s): pelvic pain, rt>suprapubic, [id number], LMP:03-26-20 PHYSICIAN: GERBER RUFINA == R A D I O L O G Y R E P O R T PATIENT HISTORY:sharp, stabbing pelvic painULTRASOUND PELVIS TRANSABDOMINAL AND TRANSVAGINALCOMPARISON: NoneHISTORY: Sharp, stabbing pelvic painTECHNIQUE:Ultrasound images through the pelvis obtained via transabdominal andtransvaginal approach.FINDINGS:There is a small cystic structure in the endometrial cavity measuring 4 mm. Afluid collection seen adjacent to this measuring 2.8 x 1.9 x 0.8 cm. There is nofetal pole or yolk sac identified. Right ovarian follicle is noted measuring 2.1cm. There is a 2 cm hypoechoic structure in the right adnexa. Left ovary isunremarkable. Doppler flow is detected in the ovaries.IMPRESSIONS:Cystic structure in the endometrial cavity, could represent an earlyintrauterine gestation. There is a fluid collection adjacent to this which mayrepresent jay-gestational hemorrhage. Indeterminate hypoechoic structuremeasuring 2 cm in the right adnexa, possibly a paraovarian cyst. A short-termfollowup study is suggested to assess development and also excludepseudo-gestational sac with an early right ectopic which could have asimilar appearance.Electronically Signed By:Lj Castro M.D. , RadiologistDate/Time: 04/28/20 00:21 Name Value Range Interpretation Code Description Data Crystal rce(s) Supporting Document(s) ID Date Data Source [id number] 04/27/2020 10:13:00 PM [facility] Name Value Range Interpretation Code Description Data Crystal rce(s) Supporting Document(s) ABO group [Type] in Blood O [facility] Rh [Type] in Blood NEGATIVE [facility] { ABO/RH REENTER O NEGATIVE ID Date Data Source [id number] 04/27/2020 10:08:00 PM [facility] Name Value Range Interpretation Code Description Data Crystal rce(s) Supporting Document(s) Choriogonadotropin.intact [Units/volume] in Serum or Plasma 2330.0 mI U/mL [facility] Interpr etation: Less than 5 mU/mL: Negative 6-10 mU/mL: Borderline (suggest repeat in 48 hours) >10: Positive Approx HCG range (mU/mL) Weeks post LMP 5.4-708 mU/mL 3-4 Weeks 217-64712 mU/mL 5-6 Weeks 4059-332149 mU/mL 7-8 Weeks 68863-832321 mU/mL 9-10 Weeks 23265-42709 mU/mL 12-14 Weeks 44297-96616 mU/mL 15-16 Weeks 8240- 57184 mU/mL 17-18 Weeks ID Date Data Source [id number] 04/27/2020 10:08:00 PM EST [facility] Name Value Range Interpretation Code Description Data Crystal rce(s) Supporting Document(s) COMPREHENSIVE METABOLIC PANEL [facility] COMPREHENSIVE METABOLIC PANEL Sodium [Moles/volume] in Serum or Plasma 136 mEq/L 134 - 153 [facility] Potassium [Moles/volume] in Serum or Plasma 3.5 mEq/L 3.6 - 5.0 L [facility] Chloride [Moles/volume] in Serum or Plasma 102 mEq/L 98 - 107 [facility] Carbon dioxide, total [Moles/volume] in Serum or Plasma 25 MEQ/L 22 - 30 [facility] Glucose [Mass/volume] in Serum or Plasma 83 MG/DL 70 - 99 [facility] BUN 8 MG/DL 7 - 21 [facility] Creatinine [Mass/volume] in Serum or Plasma 0.5 MG/DL 0.7 - 1.5 L [facility] BUN/CREAT 16 8 - 27 [facility] al Protein [Mass/volume] in Serum or Plasma 6.6 G/DL 6.3 - 8.2 [facility] Albumin [Mass/volume] in Serum or Plasma 4.6 G/DL 3.9 - 5.0 [facility] Globulin [Mass/volume] in Serum by calculation 2.0 GM/DL 2.4 - 3.2 L [facility] A/G RATIO 2.3 0.8 - 2.[address] [facility] Calcium [Mass/volume] in Serum or Plasma 8.8 MG/DL 8.4 - 10.2 [facility] Bilirubin.total [Mass/volume] in Serum or Plasma 0.7 MG/DL 0.2 - 1.3 [facility] Alkaline phosphatase [Enzymatic activity/volume] in Serum or Plasma 64 U/L 38 - 126 [facility] Aspartate aminotransferase [Enzymatic activity/volume] in Serum or Plasma 12 U/L 5 - 40 [facility] Alanine aminotransferase [Enzymatic activity/volume] in Seru m or Plasma 13 U/L 7 - 56 [facility] Anion gap 3 in Serum or Plasma 9.0 mmol/L 8.0 - 16.0 [facility] AGE 30 yrs [facility] Hospit al NON-AA GFR >60 mL/min [facility] Hosp ital AFR AMER GFR >60 mL/min [facility] Ho spital Male GFR In terprentation 20-49 yrs >60 mL/min Normal 50-59 yrs >56 mL/min Normal 60-69 yrs >49 mL/min Normal 70-79yrs >42 mL/min Normal 80 and above >35 mL/min Normal Female GFR Interpretation 20-39 yrs >60 mL/min Normal 40-49 yrs >58 mL/min Normal 50-59 yrs >51 mL/min Normal 60-69 yrs >45 mL/min Normal 70-79 yrs >39 mL/min Normal 80 and above >32 mL/min Normal ID Date Data Source [id number] 04/27/2020 09:44:00 PM EST [facility] Name Value Range Interpretation Code Description Data Crystal rce(s) Supporting Document(s) CBC W/AUTOMATED DIFF [facility] COMPLETE BLOOD COUNT Leukocytes [#/volume] in Blood by Automated count 5.7 10^3/uL 4.2 - 1 1.0 [facility] Erythrocytes [#/volume] in Blood by Automated count 4.50 10^6/uL 4. 20 - 5.40 [facility] Hemoglobin [Mass/volume] in Blood 14.8 g/dL 12.0 - 16.0 [facility] Hematocrit [Volume Fraction] of Blood by Automated count 40.6 % 3 7.0 - 47.0 [facility] Erythrocyte mean corpuscular volume [Entitic volume] by Auto mated count 90.2 fL 81.0 - 101 [facility] Erythrocyte mean corpuscular hemoglobin [Entitic mass] by Automated count 32.9 pg 27.0 - 34.0 [facility] Erythrocyte mean corpuscular hemoglobin concentration [Mass/volume] by Automated count 36.5 g/dL 31.0 - 36.0 H [facility] Erythrocyte distribution width [Ratio] by Automated count 11.9 % 11.5 - 14.5 [facility] Platelets [#/volume] in Blood by Automated count 172 10^3/uL 150 - 45 0 [facility] Platelet mean volume [Entitic volume] in Blood by Automated count 11.9 fL 7.4 - 10.4 H [facility] Neutrophils/100 leukocytes in Blood by Automated count 61.9 % 37. 0 - 80.0 [facility] Lymphocytes/100 leukocytes in Blood by Manual count 30.1 % 25.0 - 40.0 [facility] Monocytes/100 leukocytes in Blood by Automated count 5.7 % 3.0 - 8.0 [facility] Eosinophils/100 leukocytes in Blood by Automated count 1.6 % 0.0 - 7.0 [facility] Basophils/100 leukocytes in Blood by Automated count 0.5 % 0.0 - 2.5 [facility] %IG 0.2 % 0.0 - 0.0 [facility] %NRBC 0.0 % 0.0 - 0.0 [facility] al Neutrophils [#/volume] in Blood by Automated count 3.55 10^3/uL 2.00 - 6.90 [facility] Lymphocytes [#/volume] in Blood by Automated count 1.73 10^3/uL 0.60 - 3.40 [facility] Monocytes [#/volume] in Blood by Automated count 0.33 10^3/uL 0.00 - 0.90 [facility] Eosinophils [#/volume] in Blood by Automated count 0.09 10^3/uL 0.00 - 0.70 [facility] Basophils [#/volume] in Blood by Automated count 0.03 10^3/uL 0.00 - 0.20 [facility] #IG 0.01 10^3/uL 0.00 - 0.10 [facility] ospital #NRBC 0.00 10^3/uL 0.00 - 0.00 [facility] H ospital MANUAL DIFF NOT INDICATED [facility] RBC MORPH NOT INDICATED [facility] Ho spital ID Date Data Source [id number] 04/27/2020 09:30:00 PM EST [facility] Name Value Range Interpretation Code Description Data Crystal rce(s) Supporting Document(s) [facility] SOURCE R [facility] COL[facility] yellow NORMAL: Yellow [facility] H ospital CLARITY clear NORMAL: Clear [facility] Ho spital Specific gravity of Urine by Test strip 1.020 1.001 - 1.030 [facility] pH 6 5 - 9 [facility] al Glucose [Mass/volume] in Urine by Test strip NORM NORMAL: Negat [facility] Bilirubin.total [Presence] in Urine by Test strip NEG NORMAL: Negative [facility] Ketones [Presence] in Urine by Test strip NEG NORMAL: Negative [facility] Protein [Mass/volume] in Urine by Test strip NEG NORMAL: Negat [facility] Nitrite [Presence] in Urine by Test strip NEG NORMAL: Negative [facility] BLOOD NEG NORMAL: Negative [facility] Leukocyte esterase [Presence] in Urine by Test strip NEG ANG L: Negative [facility] Urobilinogen [Mass/volume] in Urine by Test strip 4 less davis n 1.0 mg/dL [facility] MICROSCOPIC See Below [facility] ital WBC None Seen NORMAL: NONE SEEN [facility] Erythrocytes [#/volume] in Urine by Test strip None Seen NORMAL: NON E SEEN [facility] EPITHELIAL MODERATE NORMAL: NONE SEEN A [facility] Bacteria [Presence] in Urine sediment by Light microscopy No ne Seen NORMAL: NONE SEEN [facility] Mucus [Presence] in Urine sediment by Light microscopy Trace NORMAL: NONE SEEN [facility] ID Date Data Source [id number] 01/22/2020 09:30:14 AM [facility] INFORMATIONPatient MRN Name Date of Age Gend*PT [id number] Kentrell Monk 1990 29 years F IPPT Location Admission Date/Time Visit ID Attending [id number] 10/18/18 1043 --- --- EPI ID CSN Admitting Provider [id number] Dwain Uriarte MD([id number]) Attestation signed by Dwain Uriarte MD at 01/22/2020 9:30 AMI agree with medical decision making.Signature: ALYSSA Hitchcockate: January 22, 2020Time: 9:29 AM Discharge Tammy Monk date: 10/18/2018 10:43 AM Primary Care Provider: PCP PROVIDER REQUESTEDAdmitting Physician: Dwain Uriarte MDAdmission Diagnosis: Post-Op Diagnosis Codes: * Morbid obesity [E66.01]Secondary Diagnoses:Past Medical History:Diagnosis Date Anxiety Bipolar 1 disorder Cervical cancer 2010 DDD (degenerative disc disease), lumbar Depression Hypertension Lumbar herniated disc Lumbar spinal stenosis Morbid obesity OCD (obsessive compulsive disorder) Panic disorder Ventral herniaSurgical Procedures performed on 10/18/2018 by Dwain Uriarte MD Procedure(s): laparoscopic GASTRIC BYPASS JUSTIN-EN-Y, LIVER BX Post-Op Diagnosis Codes: * Morbid obesity [E66.01]Secondary Procedures:None.Indication for Admission:Kentrell Monk is a 28 years female who suffers from morbid obesity.Her current weight and height are :Wt Readings from Last 1 Encounters:10/18/18 (!) 128.8 kg (284 lb)Ht Readings from Last 1 Encounters:10/18/18 1.727 m (5' 8")Giving her a Body mass index is 43.18 kg/m .; therefore, Kentrell Monk met thecriteria for weight loss surgery as defined in the NIH consensus statement, andsurgery was medically necessary.Hospital Course: The patient underwent above listed procedure on 10/18/2018 [address]Dr. Dwain Uriarte. There were no intraoperative complications andpostoperatively She was transferred to the floor in stable condition. Therewere no postoperative issues. Up on the floor She was given sips of water anddilute juice to drink. She also ambulated and used the incentive spirometerappropriately. She had no difficulties voiding. She had adequate pain controlas well with simethicone and tylenol. At the time of discharge, Accuchecks andblood pressure were normal. She was tolerating 4 oz of fluid consistentlywithout nausea. Patient was deemed appropriate for discharge home per MD.Patient was given post-op instructions and expressed understanding. They weregiven warning signs and symptoms to call the office with.She received extensive education on medications to take at home as well as dieteducation. She showed very good understanding and agreement with the dischargeplan.Most recent glucose:Glucose, POCDate Value Ref Range [id number]/19/2018 74 70 - 99 mg/dL Final Comment: [facility]FORMED BY [facility] STAFFDischarge instructions were reviewed in person and provided to the patient inprinted form as well. Kentrell Monk knows to call is there are any problemsDischarge Exam:Vitals: Temp: [97.5 F-99.4 F] 99.3 FHeart Rate: [47-88] 53Resp: [8-18] 16BP: (90-146)/(50-77) 101/59General: Laying in bed comfortably, in NADHeart: RRRLungs: Non-laboredAbd: Soft, non-distended, appropriately tender, incisions C/D/IExt: Calves non-tender to palpationDischarged Condition:goodDisposition: Home or Self CareFollow-up:Dwain Uriarte MD as scheduled in the office.Medications: Reynaldo Monk Medication Instructions ANGIE:[id number] Printed on:10/19/18 1359Medication Informationgabapentin (NEURONTIN) 100 MG capsuleTake 100 mg by mouth 3 (three) times a day (taken with 600 mg tablet)gabapentin (NEURONTIN) 600 MG tabletTake 600 mg by mouth 3 (three) times a day (taken with 100 mg capsule)hydrOXYzine (ATARAX) 10 MG tabletTake 10 mg by mouth 2 (two) times a daylisinopril-hydrochl orothiazide (PRINZIDE,ZESTORETIC) 20-25 MG per tabletTake 1 tablet by mouth dailyLurasidone HCl (LATUDA) 20 MG TABSTake 20 mg by mouth dailymedroxyPROGESTERone (DEPO-PROVERA) 150 MG/ML injectionInject 150 mg into the shoulder, thigh, or buttocks every 3 (three) months (nextdose due 10/15/18)meloxicam (MOBIC) 7.5 MG tabletTake 15 mg by mouth dailyTiZANidine (ZANAFLEX) 2 MG capsuleTake 2 mg by mouth 3 (three) times a dayvitamin D, Ergocalciferol, 95073 units CAPSTake 1 capsule by mouth once a week Maria E Fuller, PA191:58 PM Name Value Range Interpretation Code Description Data Crystal rce(s) Supporting Document(s) ID Date Data Source [id number] 05/23/2019 02:20:00 PM [facility] Name Value Range Interpretation Code Description Data Crystal rce(s) Supporting Document(s) APPEARANCE U HAZY CLEAR N [facility] SPEC GR URIN 1.013 1.002-1.035 N [facility] UA COLOR YELLOW YELLOW N [facility] ID Date Data Source [id number] 05/23/2019 12:58:43 PM [facility] Measurements & CalculationsHeight: 67.75 inches 172.09 cm 5 ft. 7.75 in.Weight: 201 pounds 91.36 kg Body Mass Index (BMI): 30.90BMI Interpretation: ObeseBody Surface Area (BSA): 2.04Weight Management Education Done (Nutrition/Physical Activity)Vital SignsTemperature: 97.8FPulse Rate: 68 beats/minuteRespiratory Rate: 16 respirations/minuteBlood Pressure: 113/71 Vital Signs performed by: Corinne Burton LPN, May 23, 2019 1:19 PMVital Signs performed by: Corinne Burton LPN, May 23, 2019 1:19 PMInitial Intake Information from: patientRoom #: 11Smoking, Tobacco, Vaping or Smoke Exposure StatusSmoke Status: current every day smokerTobacco Use: YesAdv to Quit: YesDo you vape? NoPassive Smoke Exposure: NoMenstrual HistoryLast Menstrual Period (LMP): 03/18/2019Any possibility of ? NoHealthcare HistorySince your last office visit...Have you been admitted to the hospital? NoHave you been to an emergency room (ER) or urgent care clinic? NoHave you seen another healthcare provider? Yes - [facility] lowe ,[facility] Have you seen a dentist? Yes - [place]Rate Your HealthIn general, would you say your health is? GoodPain AssessmentAre you currently having any pain which... You would like your provider to address? Yes Affects your activity level? YesInfectious Disease / Travel ScreeningRecent travel for you, your family, and/or any sexual partners? NoPain AssessmentPain ScaleNumeric Rating Scale: 6 / 10Location: l shoulder Lower backDuration: chronicFrequency: DailyCharacter/Quality: burning, sharp and stabbingIs the pain radiating? YesTo what body part(s) is the pain radiating? down L arm and both legs Screening, Brief Intervention, & Referral to Treatment (SBIRT)Pre-Screening Questions How many times have you have 4 or more drinks in a day? 0How many times have you used an illegal drug or used a prescription medication for a non-medical reason? 0Performed by: Corinne Burton LPN, May 23, 2019 1:09 PMPatient History Medical History:degenerative disc- chronic back painGestational DiabetesObesityCervical Cancerasthmainsomniaovarian cystPTSDOCDBipolar 1 Manic Mood DisorderAnxietyDepressoinSurgical History:CholecystectomyAbd hernia repair x 2 RT ankle repairCone surgery cervical cx2 teeth pulledgastric bypassFamily History:No known family historySocial/Personal History:Smoking History:Patient currently smokes every day.Patient has been counseled to quit. Advised to Quit/Tobacco Education: YesChief Complaintmed refill , problems hearing due to weight loss surgery History of Present Illness (HPI)29 yo female in for follow up regardning Meds ,C/O pain in lower back and Left shoulder also diffuculty hearingg d/t weight loss surgery per Patient Pt had weight loss surgery October 2018. Pt states states weight loss so far 98 pounds. Pt states last mensral jazmine 03/2019. Pt states need STD resting - new relationship. HPI performed by: Corinne Burton LPN, May 23, 2019 1:22 PMTransitions of Care InboundMedication Reconciliation & ReviewMedication List was reviewed and/or updated during this visit, including review of any [id number] medications, herbal therapies, and/or supplements.Allergy ReviewAllergy List was reviewed and/or updated during this visit.Adult Preventive CareProvider Calculated and Reviewed all Clinical Protocols for patient today. Screening Tobacco Screening: Smoking Status: current every day smoker (05/23/2019) Tobacco Use: Currently (05/23/2019) Advised to Quit: Yes (05/23/2019)Labs/Meds/Other Counseling-Nutrition and Physical Activity:BMI Interpretation: Obese (05/23/2019) Counseling: Done (05/23/2019) Physical Activity: Done (05/23/2019)Review of Systems General: Denies loss of appetite, chills, dizziness, fatigue, fever, continued fever, headache, feeling ill, sweats, night sweats, sleep disturbances, weight loss. Eyes: Denies blurring of vision, double vision, irritation, discharge, vision loss, eye pain, eye swelling, droopy eyelid, sensitivity to light, redness, itching. Ears/Nose/Throat: Complains of decreased hearing. Denies earache, ear discharge, nosebleeds, runny nose, sore throat, hoarseness, difficulty swallowing, dry mouth, tooth pain, bleeding gums, swollen glands. Cardiovascular: Denies chest pain, palpitations, feeling faint, trouble breathing w/exertion, SOB upon lying down, SOB at night, peripheral edema, elev ated blood pressure, decreased heart rate. Respiratory: Denies cough, difficulty breathing, shortness of breath, excessive sputum, coughing up blood, wheezing, chest pain. Gastrointestinal: Denies nausea, vomiting, bleeding, burning, itching, irritation, cramps, diarrhea, constipation. Genitourinary: Denies urinary incontinence, pain with urination, burning with urination, urinary frequency, urinary hesitancy, urinary urgency, urinary urgency at night, incomplete emptying, blood in urine, absence of menstrual period, pelvic pain. Musculoskeletal: Denies back pain, joint pain, leg pain, joint swelling, body aches, muscle aches, muscle cramps, muscle weakness, stiffness, recent injury. Skin: Denies rash, hives, redness, itching, dryness, nail changes, suspicious lesions, athlete's foot, rash on palms, rash on bottom of feet. Neurologic: Denies muscle impairment, weakness, numbness/tingling, seizures, slurred speech, feeling faint, tremors, vertigo, paralysis on one side, paralysis on both sides. Psychiatric: Denies depression, anxiety, memory loss, mental disturbance, suicidal ideation, homicidal ideation, hallucinations, paranoia, feeling stressed, hearing voices. Endocrine: Denies cold intolerance, heat intolerance, excessive thirst, excessive hunger, excessive urination, weight loss, weight gain. Physical ExamGeneral Appearance: well nourished, well hydrated, no acute distressEyes, External: conjunctivae and lids normal, EOMIRespiratory, Auscultation: clear to auscultation bilaterally; no rales, rhonchi, or wheezesRespiratory, Effort: no intercostal retractions or use of accessory musclesCardiovascular, Auscultation: S1, S2 audible; no murmur, rub, or gallop; RRRPeripheral Circulation: no clubbing, cyanosis, edema, or varicositiesAbdomen: soft, non-tender, no masses, bowel sounds normalGait & Station: normalSkin, Inspection: no rashes, lesions, or ulcerationsOrientation: oriented to time, place, and personMood & Affect: no depression, anxiety, or agitationJudgment & Insight: intactCare Management Plan Transitions of CareInboundRate Your HealthIn general, would you say your health is? GoodAssessment & Plan Problems:Added: Unspecified hearing loss, bilateral (PMM15-V61.93) Assessment: Instructions: We have made a referral for you today. We will contact you to set this up.Skin lesion (ICD-709.9) (UTH48-Q16.9) Assessment: Instructions: We have made a referral for you today. We will contact you to set this up.Candidiasis of mouth (ICD-112.0) (GOF07-Z65.0) Assessment: Instructions: We have sent a prescription to your pharmacy today . please take medication as prescribed.Acute serous otitis media, bilateral (VJF54-A49.03) Assessment: Instructions: We have sent a prescription to your pharmacy today . Please take medication as prescribed.Missed period (ICD-626.8) (ADW26-E66.5) Assessment: Instructions: Your urine test was negative today.Encounter for screening for infections with a predominantly sexual mode of transmission (ICD- V74.5) (FBR99-V12.3) Assessment: Instructions: STD testings done today. We will contqaqct you if results are abnormalAssessment not SavedAcute vaginitis (JNK34-H41.0): Patient Instructions/Care Plan: Unspecified hearing loss- bilateral: We have made a referral for you today. We will contact you to set this up.Skin lesion: We have made a referral for you today. We will contact you to set this up.Candidiasis of mouth: We have sent a prescription to your pharmacy today . please take medication as prescribed.Acute serous otitis media- bilateral: We have sent a prescription to your pharmacy today . Please take medication as prescribed.Missed period: Your urine test was negative today.Encounter for screening for infections with a predominantly sexual mode of transmission: STD testings done today. We will contqaqct you if results are abnormal Plan developed in collaboration with patient and/or familyMedications:CIPRODEX 0.3-0.1 % OTIC SUSPENSIONNYSTATIN 119160 UNIT/ML MOUTH/THROAT SUSPENSIONDIFLUCAN 150 MG ORAL TABLETAMOXICILLIN 500 MG ORAL CAPSULELATUDA 80 MG 1 TIME PER DAYKLONOPIN 0.5 MG ORAL TABLETMULTIVITAMIN WOMEN ORAL TABLETGABAPENTIN 100 MG ORAL CAPSULEVITAMIN D (ERGOCALCIFEROL) 49558 UNIT ORAL CAPSULEGABAPENTIN 600 MG ORAL TABLETMedication Changes:Added: * LATUDA 80 MG 1 TIME PER DAYNew Prescription:AMOXICILLIN 500 MG ORAL CAPSULE-take one tablet by mouth two times daily x 5 days Qty: 10[Capsule] Refills: 0 Method: ElectronicDIFLUCAN 150 MG ORAL TABLET-take one tablet by mouth x 1 dose may repeat in 5-7 days Qty: 2[Tablet] Refills: 0 Method: ElectronicNYSTATIN 707454 UNIT/ML MOUTH/THROAT SUSPENSION-5 cc by mouth swish and swallow 4 times daily x 5 days Qty: 1[Unspecified] Refills: 0 Method: ElectronicCIPRODEX 0.3-0.1 % OTIC SUSPENSION-instill 3 drops to each ear canal tree times daily x 5 days. Qty: 1[Unspecified] Refills: 0 Method: ElectronicRemoved:FLUCONAZOLE 150 MG ORAL TABLET-1 po in 7-10 days prn yeast vagtinitis from abx Qty: 1[Tablet ] Refills: 1, FLAGYL 500 MG ORAL TABLET-1 po bid Qty: 14[Tablet] Refills: 1, CELEXA 10 MG ORAL TABLET-po daily, CELEXA 20 MG ORAL TABLET-po dailly, ABILIFY 20 MG ORAL TABLET-po daily, ZANAFLEX 2 MG ORAL CAPSULE-take one capsule by mouth 3 times daily as needed. Qty: 60[Capsule] Refills: 1, * DEPO INJECTION-1 injection every 3 monthsAllergies:IBUPROFEN (Critical)Orders:Dermatology Consult [CPT-99637] ENT Consult [CPT-23784] COMP METABOLIC PANEL [CPT-15392] CBC W/DIFF [CPT-04723] HgBA1c [CPT-27633] LIPID PANEL [CPT-35426] TSH [CPT-89250] T-4 free [CPT-25162] Vitamin D 250H Unspecified [CPT-50266] URINALYSIS [CPT-27658] URINE TEST [CPT-60968] Urine - Chlamydia [CPT-51286] Urine - Gonorrhea [CPT- 40053] Other Lab [[id number]] Adult - Ofc Vst, EST, Level IV [CPT-40979] Follow-Up Return to clinic: 4-6 weeks for follow up Clinical Visit Summary CompletedMedications:CIPRODEX 0.3-0.1 % OTIC SUSPENSION (CIPROFLOXACIN- DEXAMETHASONE) instill 3 drops to each ear canal tree times daily x 5 days. #1[Unspecified] x 0 Route:OTIC Entered and Authorized by: Joanne LE Method used: Electronically to [facility] (retail) [address] [place] [address] Note to Pharmacy: Route: OTIC; Indications: ACUTE SEROUS OTITIS MEDIA, BILATERAL RxID: [id number] UNIT/ML MOUTH/THROAT SUSPENSION (NYSTATIN) 5 cc by mouth swish and swallow 4 times daily x 5 days #1[Unspecified] x 0 Rou te:MOUTH/THROAT Entered and Authorized by: Joanne LE Method used: Electronically to [facility] (retail) [address] [place] [address] Note to Pharmacy: Route: MOUTH/THROAT; Indications: CANDIDIASIS OF MOUTH RxID: [id number] 150 MG ORAL TABLET (FLUCONAZOLE) take one tablet by mouth x 1 dose may repeat in 5-7 days #2[Tablet] x 0 Route:ORAL Entered and Authorized by: Joanne LE Method used: Electronically to [facility] (retail) [address] [place] [address] Note to Pharmacy: Route: ORAL; Indications: ACUTE SEROUS OTITIS MEDIA, BILATERAL RxID: [id number] 500 MG ORAL CAPSULE (AMOXICILLIN) take one tablet by mouth two times daily x 5 days #10[Capsule] x 0 Route:ORAL Entered and Authorized by: Joanne LE Method used: Electronically to [facility] (retail) [address] [place] [address] Fax: Note to Pharmacy: Route: ORAL; Indications: ACUTE SEROUS OTITIS MEDIA, BILATERAL RxID: [id number] ZANAFLEX 2 MG ORAL CAPSULE (TIZANIDINE HCL) take one capsule by mouth 3 times daily as needed. #60[Capsule] x 1 Route:ORAL Entered by: Corinne Burton LPN Authorized by: Angela ACOSTA Method used: Electronically to [facility] (retail) [address] [place] [address] RxID: [id number] FLAGYL 500 MG ORAL TABLET (METRONIDAZOLE) 1 po bid #14[Tablet] x 1 Route:ORAL Entered by: Corinne Burton LPN Authorized by: Arnulfo Cortez MD Method used: Electronically to [facility] (retail) [address] [place] [address] RxID: [id number] FLUCONAZOLE 150 MG ORAL TABLET (FLUCONAZOLE) 1 po in 7-10 days prn yeast vagtinitis from abx #1[Tablet] x 1 Route:ORAL Entered by: Corinne Burton LPN Authorized by: Arnulfo Cortez MD Method used: Electronically to [facility] (retail) [address] [place] [address] Fax: RxID: [id number]] Name Value Range Interpretation Code Description Data Crystal rce(s) Supporting Document(s) Procedure Vital Signs ID Date Data Source UNK Name Value Range Interpretation Code Description Data Source(s) Body surface area Derived from formula 1.88 m2 1.88 m2 [facility] ([facility]) Body mass index (BMI) [Ratio] 26.3 kg/m2 26.3 k g/m2 [facility] ([facility]) Body height 67 [in_i] 67 [in_i] [facility] ([facility]) 5'7" Body weight 76.205 kg 76.205 kg [facility] ([facility]) Body weight 168.00 [lb_av] 168.00 [lb_av] [facility] ([facility]) Body temperature 97.1 [degF] 97.1 [degF] [facility] ([facility]) Heart rate 72 /min 72 /min [facility] ([facility]) Diastolic blood pressure 66 mm[Hg] 66 mm[Hg] [facility] ([facility]) Systolic blood pressure 114 mm[Hg] 114 mm[Hg] [facility] Patient Treatment Plan of Care Planned Activity Planned Date Details Description Data Source (s) Multiple Vitamins-Minerals (MULTIVITAMIN WITH MINERALS ) tablet 10/19/2018 12:00:00 AM EDT [facility] Vitamin B 12 0.5 MG Oral Tablet 10/19/2018 12:00:00 AM EDT [facility]
--- OUTSIDE RECORDS SUMMARY | 2020-04-30 03:21 | CCD ---
Author Author [facility] Organization [facility] Address Unknown Phone Unavailable Care Team Providers Care Websphere Consultant Name Role Phone Pati ChongP Unavailable Unavailable Pati ChongP Unavailable Unavailable Pati ChongP Unavailable Unavailable Castillo, A Joanne DUST CONTROL ENGINEER Unavailable Unavailable Castillo, A Joanne DUST CONTROL ENGINEER Unavailable Unavailable Castillo, A Joanne DUST CONTROL ENGINEER Unavailable Unavailable Castillo, A Joanne DUST CONTROL ENGINEER Unavailable Unavailable Castillo, A Joanne DUST CONTROL ENGINEER Unavailable Unavailable Castillo, A Joanne DUST CONTROL ENGINEER Unavailable Unavailable Castillo, A Joanne DUST CONTROL ENGINEER Unavailable Unavailable Castillo, A Joanne DUST CONTROL ENGINEER Unavailable Unavailable Castillo, A Joanne DUST CONTROL ENGINEER Unavailable Unavailable Castillo, A Joanne DUST CONTROL ENGINEER Unavailable Unavailable Castillo, A Joanne DUST CONTROL ENGINEER Unavailable Unavailable Hagaman, A Joanne DUST CONTROL ENGINEER Unavailable Unavailable Castillo, A Joanne DUST CONTROL ENGINEER Unavailable Unavailable Castillo, A Joanne DUST CONTROL ENGINEER Unavailable Unavailable Castillo, A Joanne DUST CONTROL ENGINEER Unavailable Unavailable Castillo, A Joanne DUST CONTROL ENGINEER Unavailable Unavailable Castillo, A Joanne DUST CONTROL ENGINEER Unavailable Unavailable Hagaman, A Joanne DUST CONTROL ENGINEER Unavailable Unavailable Castillo, A Joanne DUST CONTROL ENGINEER Unavailable Unavailable Castillo, A Joanne DUST CONTROL ENGINEER Unavailable Unavailable Castillo, A Joanne DUST CONTROL ENGINEER Unavailable Unavailable Castillo, A Joanne DUST CONTROL ENGINEER Unavailable Unavailable Castillo, A Joanne DUST CONTROL ENGINEER Unavailable Unavailable Castillo, A Joanne DUST CONTROL ENGINEER Unavailable Unavailable BroussardCasa MD Unavailable Unavailable Broussard, [...] L Michele SNOWDEN Unavailable Unavailable Broussard, L Micehle SNOWDEN Unavailable Unavailable Broussard, L Michele SNOWDEN [...] U Jose DO Unavailable Unavailable Joanne Chong DUST CONTROL ENGINEER DUST CONTROL ENGINEER Unavailable Unavailable Obradovic, Vladan Unavailable Unavailable Obradovic, [...] is protected by Article 27-F of the [facility] Public Health law. If you continue you may have access to information: Regarding HIV / AIDS; Provided by facilities licensed or operated by the [facility] Office of Mental Health; or Provided by the [facility] Office for People With Developmental Disabilities. If such information is present, then the following [facility] mandated warning applies: This information has been [...] ) Drug Allergy Drug Allergy NKDA MEDENT ([facility]) Family History Family Member Name Family Member Gender Family Member Status Date o f Status Description Data Source(s) Unknown Male Problem [facility] ([facility]) Unknown Male Problem MEDENT ([facility]) Unknown Unknown Problem MED[facility] ([facility] ) Unknown Unknown Problem [facility] ([facility], ) Unknown Unknown Problem MEDENT ([facility], ) Unknown Unknown Problem MEDENT ([facility], ) Mother dx age 30 Encounters Encounter Providers Location Date Indications Data Source(s ) Outpatient Attender: Jose Pineda DOConsultant: Harry hunter DO 04/29/2020 10:01:00 AM EST - 04/29/2020 10:01:00 AM [facility] Outpatient Attender: Jose Pineda DO Family Practice 04/11 09:00:00 AM EST [facility] ([facility] Emergency Attender: JUSTUS MAYESConsultant: Harry Long DO 04/27/2020 09:06:00 PM EST - 04/28/2020 12:53:00 AM [facility] Patient discharged. Outpatient Attender: Joanne LE 12/23/2019 03:1 5:01 PM EDT [facility] Outpatient Attender: Joanne VOSSP FP 09/08/2019 04:3 3:02 PM EDT [facility] Outpatient Attender: REY VOSSP FP 09/06/2019 08:39:00 A M EDT [facility] Outpatient Attender: REY Chong DUST CONTROL ENGINEER FP 08/28/2019 11:05:01 A M EDT [facility] Outpatient Attender: REY VOSSP FP 08/13/2019 09:49:01 A M EDT [facility] Outpatient Attender: REY VOSSP FP 07/04/2019 02:01:01 P M EDT [facility] Outpatient Attender: Joanne VOSSP FP 06/18/2019 09:1 5:01 PM EDT [facility] Outpatient Attender: REY VOSSP FP 06/01/2019 02:10:[address] [facility] Outpatient Attender: Joanne VOSSP FP 06/01/2019 02:1 0:[address] [facility] Outpatient Attender: REY Chong DUST CONTROL ENGINEER FP 05/24/2019 09:27:[address] [facility] Outpatient Attender: Joanne VOSSP FP 05/24/2019 09:2 6:[address] [facility] Outpatient Attender: REY VOSSP FP 05/22/2019 03:13:[address] [facility] Outpatient Attender: Joanne VOSSP FP 05/16/2019 05:1 9:[address] [facility] Outpatient Attender: REY VOSSP FP 05/15/2019 10:43:[address] [facility] Outpatient Attender: REY VOSSP FP 05/14/2019 05:40:[address] [facility] Outpatient Attender: REY VOSSP FP 05/14/2019 05:39:[address] [facility] Outpatient Attender: REY VOSSP FP 05/14/2019 04:47:[address] [facility] Outpatient Attender: REY VOSSP FP 05/14/2019 09:05:[address] [facility] Outpatient Attender: REY VOSSP FP 04/17/2019 12:59:01 P M [facility] Outpatient Attender: REY Chong DUST CONTROL ENGINEER 04/16/2019 03:29:01 P [facility] Outpatient Referrer: Michele Broussard MD 04/16/2019 01:55:00 PM [facility] Outpatient Attender: Joanne Chong DUST CONTROL ENGINEER 04/16/2019 10:1 9:03 AM [facility] Outpatient Attender: DUST CONTROL ENGINEER Castillo DUST CONTROL ENGINEER 04/15/2019 09:01:05 P M [facility] Outpatient Attender: REY Chong DUST CONTROL ENGINEER 04/08/2019 04:03:00 P [facility] Outpatient Attender: DUST CONTROL ENGINEER Castillo DUST CONTROL ENGINEER 03/26/2019 11:08:01 A M [facility] Outpatient Attender: Joanne Chong [facility] 03/26/2019 11:0 6:59 AM [facility] Outpatient Attender: REY Castillo [facility] [place] 03/26/2019 11:04:01 A [facility] Outpatient Referrer: Michele Broussard MD 03/01/2019 09:36:00 PM [facility] Inpatient<td>10/18/2018 - 10/19/2018</td ><td ID="[id number]">Hospital Encounter</td><td><paragraph>Med Surg Unit 4-1</paragraph><paragraph>[address]</paragraph><paragraph>[place] [id number]</paragraph><paragraph>[phone]</paragraph></td><td><paragraph styleCode="Bold">Dwain Uriarte MD</paragraph><paragraph>[address] [place] [address]</paragraph><paragraph>[phone]</paragraph><paragraph>[place] [address]</paragraph><paragraph>[phone]</paragraph><paragraph> </paragraph></td><td></td> Attender: Dwain UriarteAdmitter: Meño Uriarte [id number] 10/18/2018 12:00:00 AM EDT - 10/19/2018 03:49:00 PM EDT [facility] Medications Medication Brand Name Start Date Product [...] Multiple Vitamins-Minerals (MULTIVITAMIN WITH MINERALS) tabl et [id number] 10/19/2018 12:00:00 AM EDT 2 {tbl} Oral active Take 2 tablets by mouth daily [facility] Vitamin B 12 0.5 MG Oral Tablet cyanocob alamin ([facility] VITAMIN B-12) 500 MCG tablet cyanocobalamin ([facility] VITAMIN B-12) 500 MCG tablet 10/19/2018 12:0 0:00 AM EDT 1000 ug Oral active Take 2 tablets (1,000 mc g total) by mouth daily [facility] 2 mg 09/07/2018 12:00:00 AM EDT tablet 60 TAKE ONE TABLET BY MOUTH THREE TIMES A DAY NEEDED TAKE ONE TABLET BY MOUTH THREE TIMES A DAY NEEDED S OLD: 03/31/2019 [facility] Insurance Providers Payer name Policy type / Coverage type Policy ID Covered green party ID Covered green party's relationship to damon Policy Damon Plan Information [facility] [id number] SP [id number] UNHC COMMUNITY PLAN MCDHMO [id number] SP [id number] [facility] COMMUNTY PLAN [id number] 18 [id number] UNHC COMMUNITY PLAN XIX [id number] 18 [id number] Managed Care - UHC Community Plan P [id number] S [id number] Medicaid S [id number] S [id number] Managed Care - [facility] Community Plan P [id number] S [id number] [facility](MCAID) O [id number] S [id number] Managed Care - [facility] P [id number] S [id number] [facility] MEDICAID [id number] Chikis [id number] [facility] MEDICAID [id number] 1 Medicaid S [id number] S [id number] Uhc-Community Plan-Ernie Commercial [id number] Self [id number] Uhc-Community Plan-Ernie Commercial [id number] Self [id number] [facility] MEDICAID PI PI Uhc Community Plan Commercial [id number] Self [id number] Managed Care - [facility] P [id number] S [id number] Uh Community Plan Commercial [id number] Self [id number] Uh Community Plan Commercial [id number] Self [id number] Uh Community Plan Commercial [id number] Self [id number] Medicaid S [id number] S [id number] UNITED HEALTHCARE [id number] S [id number] UNITED [facility] [id number] S [id number] BLUE CROSS [id number] S [id number] UNHC COMMUNITY PLAN MCDHMO [id number] SP [id number] Managed Care - [facility] P [id number] S [id number] Managed Care - [facility] P [id number] S [id number] Managed Care - [facility] P [id number] S [id number] [facility] Ernie/MCR Health Maintenance Organization (HMO) [id number] Self [id number] Medicaid S [id number] S [id number] [facility] [id number] S [id number] [facility] Comm Plan Medicaid F [id number] SELF [id number] UNHC COMMUNITY PLAN MCDHMO [id number] SP [id number] [facility] Comm Plan Medicaid F [id number] SELF [id number] [facility] Comm Plan Medicaid F [id number] SELF [id number] MEDICAID [id number] S [id number] UNHC COMMUNITY PLAN MCDHMO [id number] SP [id number] Managed Care - [facility] P [id number] S [id number] UNHC COMMUNITY PLAN MCDHMO [id number] SP [id number] Medicaid S [id number] S [id number] Managed Care - [facility] P [id number] S [id number] [facility] Care Hmo Commercial Self [facility] Ernie/MCR Health Maintenance Organization (HMO) Self UNHC COMMUNITY PLAN MCDHMO [id number] SP [id number] [facility] [id number] S [id number] [facility] [id number] S [id number] MEDICAID [id number] S [id number] BLUE CROSS [id number] S [id number] BLUE CROSS [id number] S [id number] MEDICAID [id number] S [id number] Managed Care - [facility] P [id number] S [id number] Medicaid S [id number] S [id number] [facility] UNAVAILABLE S UNAVAILABLE MEDICAID [id number] SP [id number] MEDICAID [id number] SP [id number] SELF PAY UNAVAILABLE SP UNAVAILA BLE MEDICAID P [id number] S [id number] HMO BLUE [id number] SP [id number] BLUE CROSS [place] PLAN [id number] SP [id number] BLUE CROSS [id number] S [id number] Problems, Conditions, and Diagnoses Code Display Name Description Problem Type Effective Dates Data Source(s) V74.5 Encounter for screening for infections with a predominantly sexual mode of transmission Encounter for screening for infections w ith a predominantly sexual mode of transmission 05/23/2019 02:21:48 PM [facility] 626.8 Missed period Missed period 05/23/2019 02:21:48 PM [facility] [id number] Unspecified hearing loss, bilateral Unsp ecified hearing loss, bilateral 05/23/2019 02:21:48 PM [facility] 709.9 Skin lesion Skin lesion 05/23/2019 02:21:48 PM [facility] 112.0 Candidiasis of mouth Candidiasis of mouth 05/23 02:21:48 PM [facility] [id number] Acute serous otitis media, bilateral Acu te serous otitis media, bilateral 05/23/2019 02:21:48 PM [facility] Results ID Date Data Source [id number] 04/29/2020 04:02:00 PM [facility] Name Value Range Interpretation Code Description Data Crystal rce(s) Supporting Document(s) Choriogonadotropin.intact [Units/volume] in Serum or Plasma 3492.0 mI U/mL [facility] Interpr etation: Less than 5 mU/mL: Negative 6-10 mU/mL: Borderline (suggest repeat in 48 hours) >10: Positive Approx HCG range (mU/mL) Weeks post LMP 5.4-708 mU/mL 3-4 Weeks 217-72733 mU/mL 5-6 Weeks 4059-650870 mU/mL 7-8 Weeks 18169-668657 mU/mL 9-10 Weeks 89655-40747 mU/mL 12-14 Weeks 64041-08251 mU/mL 15-16 Weeks 8240- 56839 mU/mL 17-18 Weeks ID Date Data Source [id number] 04/27/2020 09:06:00 PM [facility] 1 OrderSheet [facility] Emergency Department [address] [place] [address] Phone #: ext- [phone] 04/27/2020 20:43 Patient: KENTRELL MONK Sex: F [...] Shanon;(IV?(Yes)) Reason for Study: pelvic pain, rt>suprapubic, [id number], LMP:68-86-86TKVYBQQOXW/IV/DRIP/FLUID ORDERSOrder Description Priority Entered Acknowledged InitialedNS IV 1000 mL 21:04/27/2020 21:23 Manjinedr,Bolus: : Bolus 1000 Justus Mayes R.NGlendymL (X1) MGlendyDGlendy;GENERAL ORDERS 2 OrderSheet [facility] Emergency Department [address] [place] [address] Phone #: ext- [phone] 04/27/2020 20:43 Patient: KENTRELL MONK Sex: F : 1990 Age: 30 yOrder Description Priority Entered Acknowledged InitialedNPO 21:04/27/2020 21:22 Gerber Dunbar Riccardo Rachel R.N. M.D.;[Electronically signed by Antonella Dunbar R.N. (00:53 04/28/2020)][Electronically signed by Justus Mayes M.D. (00:56 04/28/2020)][Electronically locked by Antonella Dunbar R.N. (00:53 04/28/2020)] Name Value Range Interpretation Code Description Data Crystal rce(s) Supporting Document(s) ID Date Data Source [id number] 04/27/2020 09:06:00 PM [facility] 1 Medication Reconciliation Report [facility] Emergency Department [address] [place] [address] Phone #: ext- [phone] 04/27/2020 20:43 Patient: [...] rce(s) Supporting Document(s) ID Date Data Source [id number] 04/27/2020 09:06:00 PM [facility] 1 Medication Administration Record [facility] Emergency Department [address] [place] [address] Phone #: ext- [phone] 04/27/2020 20:43 Patient: KENTRELL MONK Sex: F : 1990 Age: 30yWeight: 71.6 kgHeight/Length: 67 inBMI: 24.7ALLERGIES: No Known Drug Allergy Date/Time Medication Administered Medication OrderedStart NS [IV] NS IV 1000 mL Bolus: : Bolus 272516:23 04/27/2020 Dose: IV Fluids mL (X1)Antonella Dunbar R.N. Bolus: 1000 mL over 1 hour(s)---- Dispensed: 1000 mL bagStop Site: #1 left AC00:51 04/28/2020Antonella Dunbar R.N. Name Value Range Interpretation Code Description Data Crystal rce(s) Supporting Document(s) ID Date Data Source [id number] 04/27/2020 09:06:00 PM EST [facility] 1 General Instructions [facility] Emergency Department [address] [place] [address] Phone #: ext- [phone] 04/27/2020 20:43 Patient: KENTRELL MONK Sex: F : 1990 Age: 30yFirst trimester ; positive test in emergency department. (Early).INSTRUCTIONS No strenuous activity until released. Drink plenty of fluids. Do not smoke. No alcohol. (PLEASE CALL [facility] TOMORROW FOR APPOINMENT ON 04-29 OR 04-30 FOR REPEAT QUANTITATIVE B-HCG TO MAKE SURE YOU DO NOT HAVE AN ECTOPIC VS A NORMAL ONE;RETURN TO ER IF INCREASE IN ABDOMINAL PAIN OR BLEEDING).Warnings: Further evaluation is necessary in order to conduct further tests (MOTORBOAT MECHANIC INBOARD/OUTBOARD). It is very importantto follow up with [...] department as needed. Follow up with an painter helper in two days even if well.Call for an appointment. Reason for referral: evaluation and treatment. Summary of care provided topatient via paper.Understanding of the discharge instructions verbalized by patient. Expected course of illness, dischargeinstructions, activity level, diet, follow-up appointment and risks and benefits of treatment reviewed withpatient and understanding verbalized. Agrees to plan of care.Follow-up with: [facility], , , [address] [place], [place], [facility] Follow up in two days even if well. Call for an appointment. Reason for referral: evaluation and treatment. 2 General Instructions [facility] Emergency Department [address] [place] [address] Phone #: ext- [phone] 04/27/2020 20:43 [id number] Sex: F : 1990 Age: 30y Summary [...] Food cravings or turn-offs 3 General Instructions [facility] Emergency Department [address] [place] [address] Phone #: ext- [phone] 04/27/2020 20:43 Patient: KENTRELL MONK Sex: F [...] You can seeyour family provider, a specialist (painter helper), a windows systems admin, or a primary care clinic.When to seek medical advice 4 General Instructions [facility] Emergency Department [address] [place] [address] Phone #: ext- [phone] 04/27/2020 20:43 Patient: [...] gain Fever Vision changes or blurred vision [employer]. [address] [place] [address]. All rights reserved. This information is not [...] some information about this.Miscarriage 5 General Instructions [facility] Emergency Department [address] [place] [address] Phone #: ext- [phone] 04/27/2020 20:43 Patient: [...] You have an ectopic 6 General Instructions [facility] Emergency Department [address] [place] [address] Phone #: [phone] ext- [phone] 04/27/2020 20:43 Patient: KENTRELL MONK Sex: F [...] thatmay affect your care. 7 General Instructions [facility] Emergency Department [address] [place] [address] Phone #: ext- [phone] 04/27/2020 20:43 Patient: [...] as directed by y our healthcare provider. [phone] [employer]. [address] [place] [address]. All rights reserved. This information is not intended as asubstitute for professional medical care. Always follow your healthcare professional's instructions. You have been given the following additional information: , New Dx Abdominal Pain, Early No strenuous activity until released. 8 General Instructions [facility] Emergency Department [address] [place] [address] Phone #: ext- [phone] 04/27/2020 20:43 Patient: KENTRELL MONK Sex: F : 1990 Age: 30y(Electronically signed by Justus Mayes M.D. 04/28/2020 00:56) Name Value Range Interpretation Code Description Data Crystal rce(s) Supporting Document(s) ID Date Data Source [id number] 04/27/2020 09:06:00 PM [facility] 1 Clinical Report - Nurses [facility] Emergency Department [address] [place] [address] Phone #: ext- [phone] 04/27/2020 20:43 Patient: [...] scheduled to see an OB until May).Treatment PHARMACY MESSENGER:None.SEPSIS SCREEN: SIRS SCREEN NEGATIVE. SEPSIS SCREEN NEGATIVE. [...] Dunbar R.N. 2 Clinical Report - Nurses [facility] Emergency Department [address] [place] [address] Phone #: ext- [phone] 04/27/2020 20:43 Patient: KENTRELL MONK Sex: F [...] to room. 3 Clinical Report - Nurses [facility] Emergency Department [address] [place] [address] Phone #: ext- [phone] 04/27/2020 20:43 Patient: [...] 04/27/20 Antonella Dunbar R.N. Patient transported to [facility] by wheelchair with mask and engineering technician parking. --22:58 04/27/20 Antonella Dunbar R.N. 22:59 04/27/20. BP: 130/69. MAP: 89. HR: 77. RR: 18. O2 saturation: 98%. --22:59 04/27/20 Antonella Dunbar R.N. 23:20 04/28/20. Patient returned from [facility] by wheelchair with engineering technician parking. --00:20 04/28/20 Antonella Dunbar R.N. The patient [...] swelling. IV 4 Clinical Report - Nurses [facility] Emergency Department [address] [place] [address] Phone #: ext- [phone] 04/27/2020 20:43 Patient: KENTRELL MONK Sex: F : 1990 Age: 30y flushed thoroughly. --00:51 04/28/20 Antonella Dunbar R.N. Condition at departure: improved and stable. No learning barriers present. Reviewed referral to an painter helper. Work note given. Patient verbalized understanding. Written instructions provided in Belarusian. ( Instructed pt to follow up with [...] rce(s) Supporting Document(s) ID Date Data Source [id number] 04/27/2020 09:06:00 PM EST [facility] 1 Clinical Report - Physicians/Mid Levels [facility] Emergency Department [address] [place] [address] Phone #: ext- [phone] 04/27/2020 20:43 [id number] Sex: F : 1990 Age: 30y Time [...] 03-26-20. Currently : LNMP: 03-26-20 EDC: 12-31-20 [id number] 4-5 weeks. In 1st trimester. confirmed with [...] Medications: 2 Clinical Report - Physicians/Mid Levels [facility] Emergency Department [address] [place] [address] Phone #: ext- [phone] 04/27/2020 20:43 Patient: [...] 1ST TRI W TV IF NEEDED INSTITUTION: [facility] ORDERING PHYSICIAN: Justus Mayes 3 Clinical Report - Physicians/Mid Levels [facility] Emergency Department [address] [place] [address] Phone #: ext- [phone] 04/27/2020 20:43 Patient: KENTRELL MONK Sex: F [...] 28, 2020 12:21:39 AM EST by:Shahbaz Koo, [place] [employer]. Study type: transvaginal evaluation. [...] OB 1ST [place] [address] ---------NAME--------- NUMBER SEX AGE ADMIT DISC. XRAY# F/C TYPE 4 Clinical Report - Physicians/Mid Levels [facility] Emergency Department [address] [place] [address] Phone #: ext- [phone] 04/27/2020 20:43 Patient: KENTRELL MONK Sex: F : 1990 Age: 30y LACHO Travis [id number] F 30 04/27/20 [id number] E/R DATE OF : 1990 M/R# [id number] #: [phone] TR-04 LOCATION: EMERGENCY DEPT TRANSCRIBED: 04/28/20 21 IF US OB 1ST TRI W TV IF NEEDED [id number] COMPLETE KNB 2481 Reason(s): pelvic pain, rt>suprapubic, [id number], LMP:03-26-20 -- PHYSICIAN: GERBER ALMARAZ -- -- [...] 14.5) 5 Clinical Report - Physicians/Mid Levels [facility] Emergency Department [address] [place] [address] Phone #: ext- [phone] 04/27/2020 20:43 Patient: KENTRELL MONK Sex: F [...] GFR Int erprentation 20-49 yrs >60 mL/min Kihxvq15-08 yrs >56 mL/min Normal 60-69 yrs >49 mL/min Normal 70-79yrs>42 mL/min Normal 80 and above >35 mL/min Normal Female GFRInterpretation 20-39 yrs >60 mL/min Normal 40-49 yrs >58 mL/minNormal 50-59 yrs >51 mL/min Normal 60-69 yrs >45 mL/min Myrume24-80 yrs >39 mL/min Normal 80 and above >32 mL/min NormalType Rh: (NARESH: 04/27/2020 21:24) ( MsgRcvd 04/27/2020 22:13) Final results Test Result Flag Units (Reference) ABO GROUP O RH TYPE NEGATIVE { ABO/RH REENTER O NEGATIVE 6 Clinical Report - Physicians/Mid Levels [facility] Emergency Department [address] [place] [address] Phone #: ext- [phone] 04/27/2020 20:43 ----- Patient: KENTRELL MONK Sex: F : 1990 Age: 30y Urinalysis: (NARESH: 04/27/2020 21:10) ( [facility] 04/27/2020 21:31) Final results Test Result Flag [...] Beta-HCG, Quant Serum: (NARESH: 04/27/2020 21:24) ( [facility] 04/27/2020 22:08) Final results Test Result Flag Units (Reference) HCG QUANT 2330.0 mIU/mL Interpretation: Less than 5 mU/mL: Negative 6-10 mU/mL: Borderline (suggest repeat in 48 hours) >10: Positive Approx HCG range (mU/mL) Weeks post LMP 5.4-708 mU/mL 3-4 Weeks 217-77551 mU/mL 5-6 Weeks 4059-927816 mU/mL 7-8 Weeks 32546-231258 mU/mL 9-10 Weeks 36603-82133 mU/mL 12-14 Weeks 78347- 55061 mU/mL 15-16 Weeks 8240-41571 mU/mL 17-18 Weeks.PROGRESS AND PROCEDURESCourse of Care: 22:30 04/27/20. workup all in and reviewed, quant. B-HCG is 2330, pt is O negative,pelvic US ordered 00:36 04/28/20. TV Pelvic US results in and reviewed; pt has either early IU or early rt sided ectopic; pt told about the results and the need to f/u w MOTORBOAT MECHANIC INBOARD/OUTBOARD in 2-3 days for f/u quant B-HCG; [...] controlled; 7 Clinical Report - Physicians/Mid Levels [facility] Emergency Department [address] [place] [address] Phone #: [phone] 04/27/2020 20:43 Patient: [...] Do not smoke. No alcohol. (PLEASE CALL [facility] TOMORROW FOR APPOINMENT ON 04-29 OR 04-30 FOR REPEAT QUANTITATIVE B-HCG TO MAKE SURE YOU DO NOT HAVE AN ECTOPIC VS A NORMAL ONE; RETURN TO ER IF INCREASE IN ABDOMINAL PAIN OR BLEEDING). Warnings: Further evaluation is necessary in order to conduct further tests (MOTORBOAT MECHANIC INBOARD/OUTBOARD). It is very important to follow up [...] department as needed. Follow up with an painter helper in two days even if well. Call [...] care. 8 Clinical Report - Physicians/Mid Levels [facility] Emergency Department [address] [place] [address] Phone #: [phone]- [phone] 04/27/2020 20:43 Patient: KENTRELL MONK Sex: F : 1990 Age: 30y Follow-up with: [facility], , , [address] [place] [address], [phone] Follow up in two days even if well. Call for an appointment. Reason for referral: evaluation and treatment. Summary of care provided to patient via paper.(Electronically signed by Justus Mayes M.D. 04/28/2020 00:56) Name Value Range Interpretation Code Description Data Crystal rce(s) Supporting Document(s) ID Date Data Source [id number] 04/28/2020 12:54:00 AM EST [place] [place] [address] ---------NAME--------- NUMBER SEX AGE ADMIT DISC. XRAY# F/C TYPE LACHO Travis [id number] F 30 04/27/20 04/28/20 [id number] [id number] E/R DATE OF : 1990 M/R# [id number] #: [id number] TR-04 LOCATION: EMERGENCY DEPT TRANSCRIBED: 04/28/20 54 IF US OB TRANSVAGINAL [id number] COMPLETED:04/27/20 23:40 KNB 2482 {REASON FOR OBS: [...] rce(s) Supporting Document(s) ID Date Data Source [id number] 04/28/2020 12:21:00 AM [facility] [address] [place] [address] ---------NAME--------- NUMBER SEX AGE ADMIT DISC. XRAY# F/C TYPE LACHO Travis [id number] F 30 04/27/20 [id number] X6B E/R DATE OF : 1990 M/R# [id number] PH#: [phone] TR-04 LOCATION: EMERGENCY DEPT TRANSCRIBED: 04/28/20 21 IF US OB 1ST TRI W TV IF NEEDED [id number] COMPLETED:04/27/20 23:40 KNB 2481 Reason(s): pelvic pain, rt>suprapubic, [id number], LMP:03-26-20 PHYSICIAN: GERBER RUFINA == R A [...] rce(s) Supporting Document(s) ID Date Data Source [id number] 04/27/2020 10:13:00 PM [facility] Name Value Range Interpretation Code Description Data Crystal rce(s) Supporting Document(s) ABO group [Type] in Blood O [facility] Rh [Type] in Blood NEGATIVE [facility] { ABO/RH REENTER O NEGATIVE ID Date Data Source [id number] 04/27/2020 10:08:00 PM [facility] Name Value Range Interpretation Code Description Data Crystal rce(s) Supporting Document(s) Choriogonadotropin.intact [Units/volume] in Serum or Plasma 2330.0 mI U/mL [facility] Interpr etation: Less than 5 mU/mL: Negative 6-10 mU/mL: Borderline (suggest repeat in 48 hours) >10: Positive Approx HCG range (mU/mL) Weeks post LMP 5.4-708 mU/mL 3-4 Weeks 217-41019 mU/mL 5-6 Weeks 4059-045387 mU/mL 7-8 Weeks 12321-375678 mU/mL 9-10 Weeks 99532-93134 mU/mL 12-14 Weeks 96883-96735 mU/mL 15-16 Weeks 8240- 07322 mU/mL 17-18 Weeks ID Date Data Source [id number] 04/27/2020 10:08:00 PM EST [facility] Name Value Range Interpretation Code Description Data Crystal rce(s) Supporting Document(s) COMPREHENSIVE METABOLIC PANEL [facility] COMPREHENSIVE METABOLIC PANEL Sodium [Moles/volume] in Serum or Plasma 136 mEq/L 134 - 153 [facility] Potassium [Moles/volume] in Serum or Plasma 3.5 mEq/L 3.6 - 5.0 L [facility] Chloride [Moles/volume] in Serum or Plasma 102 mEq/L 98 - 107 [facility] Carbon dioxide, total [Moles/volume] in Serum or Plasma 25 MEQ/L 22 - 30 [facility] Glucose [Mass/volume] in Serum or Plasma 83 MG/DL 70 - 99 [facility] BUN 8 MG/DL 7 - 21 [facility] Creatinine [Mass/volume] in Serum or Plasma 0.5 MG/DL 0.7 - 1.5 L [facility] BUN/CREAT 16 8 - 27 [facility] al Protein [Mass/volume] in Serum or Plasma 6.6 G/DL 6.3 - 8.2 [facility] Albumin [Mass/volume] in Serum or Plasma 4.6 G/DL 3.9 - 5.0 [facility] Globulin [Mass/volume] in Serum by calculation 2.0 GM/DL 2.4 - 3.2 L [facility] A/G RATIO 2.3 0.8 - 2.0 [facility] Calcium [Mass/volume] in Serum or Plasma 8.8 MG/DL 8.4 - 10.2 [facility] Bilirubin.total [Mass/volume] in Serum or Plasma 0.7 MG/DL 0.2 - 1.3 [facility] Alkaline phosphatase [Enzymatic activity/volume] in Serum or Plasma 64 U/L 38 - 126 [facility] Aspartate aminotransferase [Enzymatic activity/volume] in Serum or Plasma 12 U/L 5 - 40 [facility] Alanine aminotransferase [Enzymatic activity/volume] in Seru m or Plasma 13 U/L 7 - 56 [facility] Anion gap 3 in Serum or Plasma 9.0 mmol/L 8.0 - 16.0 [facility] AGE 30 yrs [facility] NON-AA GFR >60 mL/min [facility] ital AFR AMER GFR >60 mL/min [facility] spital Male GFR In terprentation 20-49 [...] >32 mL/min Normal ID Date Data Source [id number] 04/27/2020 09:44:00 PM EST [facility] Name Value Range Interpretation Code Description Data Crystal rce(s) Supporting Document(s) CBC W/AUTOMATED DIFF [facility] COMPLETE BLOOD COUNT Leukocytes [#/volume] in Blood by Automated count 5.7 10^3/uL 4.2 - 1 1.0 [facility] Erythrocytes [#/volume] in Blood by Automated count 4.50 10^6/uL 4. 20 - 5.40 [facility] Hemoglobin [Mass/volume] in Blood 14.8 g/dL 12.0 - 16.0 [facility] Hematocrit [Volume Fraction] of Blood by Automated count 40.6 % 3 7.0 - 47.0 [facility] Erythrocyte mean corpuscular volume [Entitic volume] by Auto mated count 90.2 fL 81.0 - 101 [facility] Erythrocyte mean corpuscular hemoglobin [Entitic mass] by Automated count 32.9 pg 27.0 - 34.0 [facility] Erythrocyte mean corpuscular hemoglobin concentration [Mass/volume] by Automated count 36.5 g/dL 31.0 - 36.0 H [facility] Erythrocyte distribution width [Ratio] by Automated count 11.9 % 11.5 - 14.5 [facility] Platelets [#/volume] in Blood by Automated count 172 10^3/uL 150 - 45 0 [facility] Platelet mean volume [Entitic volume] in Blood by Automated count 11.9 fL 7.4 - 10.4 H [facility] Neutrophils/100 leukocytes in Blood by Automated count 61.9 % 37. 0 - 80.0 [facility] Lymphocytes/100 leukocytes in Blood by Manual count 30.1 % 25.0 - 40.0 [facility] Monocytes/100 leukocytes in Blood by Automated count 5.7 % 3.0 - 8.0 [facility] Eosinophils/100 leukocytes in Blood by Automated count 1.6 % 0.0 - 7.0 [facility] Basophils/100 leukocytes in Blood by Automated count 0.5 % 0.0 - 2.5 [facility] %IG 0.2 % 0.0 - 0.[address] %NRBC 0.0 % 0.0 - 0.0 [facility] al Neutrophils [#/volume] in Blood by Automated count 3.55 10^3/uL 2.00 - 6.90 [facility] Lymphocytes [#/volume] in Blood by Automated count 1.73 10^3/uL 0.60 - 3.40 [facility] Monocytes [#/volume] in Blood by Automated count 0.33 10^3/uL 0.00 - 0.90 [facility] Eosinophils [#/volume] in Blood by Automated count 0.09 10^3/uL 0.00 - 0.70 [facility] Basophils [#/volume] in Blood by Automated count 0.03 10^3/uL 0.00 - 0.20 [facility] #IG 0.01 10^3/uL 0.00 - 0.10 [facility] ospital #NRBC 0.00 10^3/uL 0.00 - 0.00 [facility] MANUAL DIFF NOT INDICATED [facility] RBC MORPH NOT INDICATED [facility] spital ID Date Data Source [id number] 04/27/2020 09:30:00 PM EST [facility] Name Value Range Interpretation Code Description Data Crystal rce(s) Supporting Document(s) UR[facility]ALYSIS [facility] URINALYSIS SOURCE R [facility] COLOR yellow NORMAL: Yellow [facility] CLARITY clear NORMAL: Clear [facility]ital Specific gravity of Urine by Test strip 1.020 1.001 - 1.030 [facility] pH 6 5 - 9 [facility] al Glucose [Mass/volume] in Urine by Test strip NORM NORMAL: Negat [facility] Bilirubin.total [Presence] in Urine by Test strip NEG NORMAL: Negative [facility] Ketones [Presence] in Urine by Test strip NEG NORMAL: Negative [facility] Protein [Mass/volume] in Urine by Test strip NEG NORMAL: Negat [facility] Nitrite [Presence] in Urine by Test strip NEG NORMAL: Negative [facility] BLOOD NEG NORMAL: Negative [facility] Leukocyte esterase [Presence] in Urine by Test strip NEG ANG L: Negative [facility] Urobilinogen [Mass/volume] in Urine by Test strip 4 less davis n 1.0 mg/dL [facility] MICROSCOPIC See Below [facility] WBC None Seen NORMAL: NONE SEEN [facility] Erythrocytes [#/volume] in Urine by Test strip None Seen NORMAL: NON E SEEN [facility] EPITHELIAL MODERATE NORMAL: NONE SEEN A [facility] Bacteria [Presence] in Urine sediment by Light microscopy No ne Seen NORMAL: NONE SEEN [facility] Mucus [Presence] in Urine sediment by Light microscopy Trace NORMAL: NONE SEEN [facility] ID Date Data Source [id number] 01/22/2020 09:30:14 AM EDT [facility] INFORMATIONPatient MRN Name Date of Age Gend*PT [id number] Kentrell Monk 1990 29 years F IPPT Location Admission Date/Time Visit ID Attending [id number] 10/18/18 1043 --- --- EPI ID CSN Admitting Provider [id number] Dwain Uriarte MD([id number]) Attestation signed by Dwain Uriarte MD at [...] dischargeplan.Most recent glucose:Glucose, POCDate Value Ref Range Auxgkf3810/19/2018 74 70 - 99 mg/dL Final Comment: PERFORMED BY [facility] CLINICAL STAFFDischarge instructions were reviewed in [...] in the office.Medications: Reynaldo Monk Medication Instructions ANGIE:[id number] Printed on:10/19/18 1359Medication Informationgabapentin (NEURONTIN) 100 MG [...] 3 (three) times a dayvitamin D, Ergocalciferol, 38047 units CAPSTake 1 capsule by mouth once a week Maria E Fuller, PA191:58 PM Name Value Range Interpretation Code Description Data Crystal rce(s) Supporting Document(s) ID Date Data Source [id number] 05/23/2019 02:20:00 PM [facility] Name Value Range Interpretation Code Description Data Crystal rce(s) Supporting Document(s) APPEARANCE U HAZY CLEAR N [facility] SPEC GR URIN 1.013 1.002-1.035 N [facility] UA COLOR YELLOW YELLOW N [facility] ID Date Data Source [id number] 05/23/2019 12:58:43 PM [facility] Measurements & CalculationsHeight: 67.75 inches 172.09 [...] another healthcare provider? Yes - dr lowe ,[facility] Have you seen a dentist? [...] during this visit, including review of any xbao-pjh-kuepawd medications, herbal therapies, and/or supplements.Allergy ReviewAllergy List [...] & Plan Problems:Added: Unspecified hearing loss, bilateral (ACT86-F76.93) Assessment: Instructions: We have made a referral for you today. We will contact you to set this up.Skin lesion (ICD-709.9) (ARS80-T24.9) Assessment: Instructions: We have made a referral for you today. We will contact you to set this up.Candidiasis of mouth (ICD-112.0) (FCR26-A30.0) Assessment: Instructions: We have sent a prescription to your pharmacy today . please take medication as prescribed.Acute serous otitis media, bilateral (ZGD02-F08.03) Assessment: Instructions: We have sent a prescription to your pharmacy today . Please take medication as prescribed.Missed period (ICD-626.8) (IVA67-X32.5) Assessment: Instructions: Your urine test was negative today.Encounter for screening for infections with a predominantly sexual mode of transmission (ICD- V74.5) (IRA28-S91.3) Assessment: Instructions: STD testings done today. We will contqaqct you if results are abnormalAssessment not SavedAcute vaginitis (XDT63-T21.0): Patient Instructions/Care Plan: Unspecified hearing loss- bilateral: [...] patient and/or familyMedications:CIPRODEX 0.3-0.1 % OTIC SUSPENSIONNYSTATIN 667223 UNIT/ML MOUTH/THROAT SUSPENSIONDIFLUCAN 150 MG ORAL TABLETAMOXICILLIN 500 MG ORAL CAPSULELATUDA 80 MG 1 TIME PER DAYKLONOPIN 0.5 MG ORAL TABLETMULTIVITAMIN WOMEN ORAL TABLETGABAPENTIN 100 MG ORAL CAPSULEVITAMIN D (ERGOCALCIFEROL) 39625 UNIT ORAL CAPSULEGABAPENTIN 600 MG ORAL TABLETMedication Changes:Added: * LATUDA 80 MG 1 TIME PER DAYNew Prescription:AMOXICILLIN 500 MG ORAL CAPSULE-take one tablet by mouth two times daily x 5 days Qty: 10[Capsule] Refills: 0 Method: ElectronicDIFLUCAN 150 MG ORAL TABLET-take one tablet by mouth x 1 dose may repeat in 5-7 days Qty: 2[Tablet] Refills: 0 Method: ElectronicNYSTATIN 399582 UNIT/ML MOUTH/THROAT SUSPENSION-5 cc by mouth swish [...] INJECTION-1 injection every 3 monthsAllergies:IBUPROFEN (Critical)Orders:Dermatology Consult [CPT-45393] ENT Consult [CPT-28659] COMP METABOLIC PANEL [CPT-58653] CBC W/DIFF [CPT-77581] HgBA1c [CPT-55211] LIPID PANEL [CPT-81536] TSH [CPT-83196] T-4 free [CPT-08660] Vitamin D 250H Unspecified [CPT-79231] URINALYSIS [CPT-92874] URINE TEST [CPT-04801] Urine - Chlamydia [CPT-24209] Urine - Gonorrhea [CPT- 71254] Other Lab [767647] Adult - Ofc Vst, EST, Level IV [CPT-05713] Follow-Up Return to clinic: 4-6 weeks for follow up Clinical Visit Summary CompletedMedications:CIPRODEX 0.3-0.1 % OTIC SUSPENSION (CIPROFLOXACIN- DEXAMETHASONE) instill 3 drops to each ear canal tree times daily x 5 days. #1[Unspecified] x 0 Route:OTIC Entered and Authorized by: Joanne LE Method used: Electronically to [facility] (retail) [address] [place] [address] Note to Pharmacy: Route: OTIC; Indications: ACUTE SEROUS OTITIS MEDIA, BILATERAL RxID: [id number] UNIT/ML MOUTH/THROAT SUSPENSION (NYSTATIN) 5 cc by mouth swish and swallow 4 times daily x 5 days #1[Unspecified] x 0 Rou te:MOUTH/THROAT Entered and Authorized by: Joanne LE Method used: Electronically to [facility] (retail) [address] [place] [address] Note to Pharmacy: Route: MOUTH/THROAT; Indications: CANDIDIASIS OF MOUTH RxID: [id number] 150 MG ORAL TABLET (FLUCONAZOLE) take one tablet by mouth x 1 dose may repeat in 5-7 days #2[Tablet] x 0 Route:ORAL Entered and Authorized by: Joanne LE Method used: Electronically to [facility] (retail) [address] [place] [address] Note to Pharmacy: Route: ORAL; Indications: ACUTE SEROUS OTITIS MEDIA, BILATERAL RxID: [id number] 500 MG ORAL CAPSULE (AMOXICILLIN) take one tablet by mouth two times daily x 5 days #10[Capsule] x 0 Route:ORAL Entered and Authorized by: Joanne LE Method used: Electronically to [facility] (retail) [address] [place] [address] Fax: Note to Pharmacy: Route: ORAL; Indications: ACUTE SEROUS OTITIS MEDIA, BILATERAL RxID: [id number] ZANAFLEX 2 MG ORAL CAPSULE (TIZANIDINE HCL) take one capsule by mouth 3 times daily as needed. #60[Capsule] x 1 Route:ORAL Entered by: Corinne Burton LPN Authorized by: Angela ACOSTA Method used: Electronically to [facility] (retail) [address] [place] [address] RxID: [id number] FLAGYL 500 MG ORAL TABLET (METRONIDAZOLE) 1 po bid #14[Tablet] x 1 Route:ORAL Entered by: Corinne Burton LPN Authorized by: Arnulfo Cortez MD Method used: Electronically to [facility] (retail) [address] [place] [address] RxID: [id number] FLUCONAZOLE 150 MG ORAL TABLET (FLUCONAZOLE) 1 po in 7-10 days prn yeast vagtinitis from abx #1[Tablet] x 1 Route:ORAL Entered by: Corinne Burton LPN Authorized by: Arnulfo Cortez MD Method used: Electronically to [facility] (retail) [address] [place] [address] Fax: RxID: [id number]] Name Value Range Interpretation Code Description Data Crystal rce(s) Supporting Document(s) Procedure Vital Signs ID Date Data Source UNK Name Value Range Interpretation Code Description Data Source(s) Body surface area Derived from formula 1.88 m2 1.88 m2 [facility] ([facility]) Body mass index (BMI) [Ratio] 26.3 kg/m2 26.3 k g/m2 [facility] ([facility]) Body height 67 [in_i] 67 [in_i] [facility] ([facility]) 5'7" Body weight 76.205 kg 76.205 kg [facility] ([facility]) Body weight 168.00 [lb_av] 168.00 [lb_av] [facility] ([facility]) Body temperature 97.1 [degF] 97.1 [degF] [facility] ([facility]) Heart rate 72 /min 72 /min [facility] ([facility]) Diastolic blood pressure 66 mm[Hg] 66 mm[Hg] [facility] ([facility]) Systolic blood pressure 114 mm[Hg] 114 mm[Hg] [facility] Patient Treatment Plan of Care Planned Activity Planned Date Details Description Data Source (s) Multiple Vitamins-Minerals (MULTIVITAMIN WITH MINERALS ) tablet 10/19/2018 12:00:00 AM EDT [facility] Vitamin B 12 0.5 MG Oral Tablet 10/19/2018 12:00:00 AM EDT [facility]
== END 2020-04-30 03:44 | disposition left against medical advice (07) ==
LOC: M ED 02:27
DX: Z53.21 Procedure and treatment not carried out due to patient leaving prior to being seen by health care provider (principal)

== ENCOUNTER → 2020-05-06 | Outpatient (REF) | payer OTHER ==
[2020-05-06 17:11] LABS: HEMATOCRIT 36.6 % (36.0-47.0); HEMOGLOBIN 12.8 g/dl (12.0-15.5); MEAN CORPUSCULAR HEMOGLOBIN 32.2 pg (27.0-33.0); PLATELET COUNT, AUTOMATED 163 10^3/uL (150-450); RED BLOOD COUNT 3.98 10^6/uL (4.00-5.40); WHITE BLOOD COUNT 5.4 10^3/uL (4.0-10.0)
[2020-05-06 18:27] LABS: HCG, SERUM QUANTITATIVE 23511 MIU/ML; HEPATITIS C VIRUS ABY INDEX < 0.0 INDEX (<0.8); HIV 1&2 SCREEN CENTAUR NEGATIVE (NEGATIVE)
[2020-05-07 10:19] LABS: FREE T3 2.3 PG/ML (2.2-4.0); FREE T4 0.96 NG/DL (0.76-1.46); THYROID STIMULATING HORMONE 0.576 uIU/ML (0.358-3.740)
[2020-05-07 14:35] LABS: HEMOGLOBIN A1c 4.5 %
== END ==
LOC: M LAB REF 16:25
PROVIDERS: ATTEND Obstetrics & Gynecology
DX: O36.80X0 Pregnancy with inconclusive fetal viability, not applicable or unspecified (principal)

== ENCOUNTER → 2020-05-12 | Outpatient (CLI) | payer OTHER ==
--- NOTE | 2020-05-12 14:47 | REP ---
INDICATION: DATING AND VIABILITY COMPARISON: None. TECHNIQUE: Transabdominal 1st trimester obstetrical ultrasound with color Doppler evaluation FINDINGS: Single live early intrauterine is appreciated. Gestational sac with yolk sac and pole identified. [place]-rump length of 10 mm corresponds to 7 weeks 0 days gestational age with estimated date of delivery 12/29/2020. heart rate equals 127 beats per minute. A small subchorionic hemorrhages suggested measuring 29 x 13 x 7 mm. IMPRESSION: Single live early intrauterine at 7 weeks 0 days gestational age. Complete anatomical assessment should be performed and 19-20 weeks. Small subchorionic hemorrhage. <Electronically signed by Chuy Menendez > 05/12/20 5141
== END ==
LOC: M WHC 14:00
PROVIDERS: ATTEND Obstetrics & Gynecology
DX: O36.80X0 Pregnancy with inconclusive fetal viability, not applicable or unspecified (principal); Z3A.01 Less than 8 weeks gestation of pregnancy

== ENCOUNTER → 2020-06-05 | Outpatient (CLI) | payer OTHER ==
[2020-06-05 11:45] LABS: ALT/SGPT 20 U/L (12-78); BILIRUBIN,TOTAL 0.4 MG/DL (0.2-1.0); CREATININE FOR GFR 0.47 MG/DL (0.55-1.30); GLOMERULAR FILTRATION RATE > 60.0 (>60); LDH LACTATE DEHYDROGENASE 130 U/L (84-246); URIC ACID 2.5 MG/DL (2.6-6.0)
[2020-06-05 12:07] LABS: CREATININE, URINE 76.5 MG/DL; URINE TOTAL PROTEIN 9.1 MG/DL (0-12)
[2020-06-05 15:06] LABS: CREATININE 24 HOUR, URINE 1338.7 MG/24HR (600-1800); TOTAL PROTEIN 24 HOUR URINE 159.2 MG/24HR (50-150)
== END ==
LOC: M LAB 09:08
PROVIDERS: ATTEND Advanced Practice Midwife
DX: O09.91 Supervision of high risk pregnancy, unspecified, first trimester (principal); Z3A.00 Weeks of gestation of pregnancy not specified

== ENCOUNTER 2020-06-18 12:05 | Emergency (ER) | payer OTHER ==
[~2020-06-18] VITALS: Ht 170.2 cm; Wt 78.4 kg
[2020-06-18 13:45] LABS: HEMATOCRIT 35.4 % (36.0-47.0); HEMOGLOBIN 12.2 g/dl (12.0-15.5); MEAN CORPUSCULAR HEMOGLOBIN 32.7 pg (27.0-33.0); MEAN CORPUSCULAR HGB CONC 34.5 g/dl (32.0-36.5); MEAN CORPUSCULAR VOLUME 94.9 fl (80.0-96.0); PLATELET COUNT, AUTOMATED 144 10^3/uL (150-450); RED BLOOD COUNT 3.73 10^6/uL (4.00-5.40); WHITE BLOOD COUNT 6.2 10^3/uL (4.0-10.0)
[2020-06-18 14:15] LABS: BLOOD UREA NITROGEN 6 MG/DL (7-18); CALCIUM LEVEL 8.7 MG/DL (8.5-10.1); CARBON DIOXIDE LEVEL 26 MEQ/L (21-32); CHLORIDE LEVEL 108 MEQ/L (98-107); CREATININE FOR GFR 0.46 MG/DL (0.55-1.30); FREE THYROXINE INDEX 2.4 % (1.3-4.8); GLOMERULAR FILTRATION RATE > 60.0 (>60); GLUCOSE, FASTING 86 MG/DL (70-100); MAGNESIUM LEVEL 2.1 MG/DL (1.8-2.4); POTASSIUM SERUM 3.9 MEQ/L (3.5-5.1); SODIUM LEVEL 139 MEQ/L (136-145); T UPTAKE 26 % (30-39); THYROID STIMULATING HORMONE 0.897 uIU/ML (0.358-3.740); THYROXINE (T4) 9.4 UG/DL (4.5-12.0)
[2020-06-18 14:32] VITALS: BP 102/58
--- NOTE | 2020-06-18 17:32 | ECGEPIP ---
[facility] - ED Test Date: 2020-06-18 Pat Name: KENTRELL MONK Department: Room: - Gender: Female Crm Specialist: TAYA : 1990 Requested By: FREDA Prince Order Number: [id number] Reading MD: Aranza Patterson Measurements Intervals [place] Rate: 68 P: 30 [place]: 126 QRS: 34 QRSD: 84 T: 47 QT: 386 QTc: 410 Interpretive Statements Normal sinus rhythm NSTTW abnormalities decreased rate 10/22/18 Electronically Signed on 06-18-2020 17:31:59 EST by Aranza Patterson
== END 2020-06-18 14:36 | disposition home or self-care (01) ==
LOC: M ED 12:05
DX: O99.810 Abnormal glucose complicating pregnancy (principal); O99.891 Other specified diseases and conditions complicating pregnancy; R00.2 Palpitations; O10.012 Pre-existing essential hypertension complicating pregnancy, second trimester; O99.612 Diseases of the digestive system complicating pregnancy, second trimester; O99.342 Other mental disorders complicating pregnancy, second trimester; Z79.899 Other long term (current) drug therapy; Z88.6 Allergy status to analgesic agent

== ENCOUNTER → 2020-08-18 | Outpatient (CLI) | payer OTHER ==
--- NOTE | 2020-08-18 08:11 | REP ---
INDICATION: ANATOMY COMPARISON: 05/12/2020 TECHNIQUE: Transabdominal obstetrical ultrasound with color Doppler evaluation. FINDINGS: Examination demonstrates a single live intrauterine in cephalic presentation. motion is identified by technologist. Placenta is noted anterior and grade 1 without evidence for placenta previa or abruption. Amniotic fluid volume is normal. Cervix measures 3.8 cm in length and appears closed.. Gestational age by LMP and 1st U/S 20 weeks 5 days with TANYA 12/31/2020. Gestational age by current measurements 20 weeks 1 day with TANYA 01/04/2021. FHR equals 149 beats per minute. BPD: 4.5 cm at 19 weeks 4 days HC: 17.0 cm at 19 weeks 4 days AC: 14.8 cm at 20 weeks 0 days FL: 3.4 cm at 20 weeks 4 days HL: 3.2 cm at 20 weeks 6 days HC/AC: 1.15 Estimated weight 338 grams (21stpercentile). Anatomical assessment demonstrates normal structures including cranium, choroid plexus, cavum, cerebellum/posterior fossa, facial features, lungs, four-chamber heart/ventricular outflow tracts, diaphragm, stomach, cord insertion/three-vessel cord, kidneys/bladder, spine, and extremities. IMPRESSION: Single live intrauterine in cephalic presentation demonstrating appropriate estimated weight. Anatomical assessment is complete and normal. <Electronically signed by Chuy Menendez > 08/18/20 0823
== END ==
LOC: M WHC 06:19
PROVIDERS: ATTEND Advanced Practice Midwife
DX: Z34.92 Encounter for supervision of normal pregnancy, unspecified, second trimester (principal); Z3A.20 20 weeks gestation of pregnancy

== ENCOUNTER → 2020-08-25 | Outpatient (CLI) | payer OTHER ==
--- NOTE | 2020-08-25 13:48 | REP ---
INDICATION: LEG SWELLING. COMPARISON: None. TECHNIQUE: Multiple ultrasonographic images of the deep venous structures of the bilateral thigh were obtained from the common femoral vein to the popliteal vein along with Doppler interrogation and color flow Doppler images. FINDINGS: There is no abnormal echogenic material seen within any of the visualized deep venous structures that would suggest acute thrombosis. Coaptation is unremarkable throughout. Doppler interrogation shows an expected response to respiratory variability and augmentation. The color flow images show what appears to be a normal vascular pattern throughout. IMPRESSION: There is no ultrasonographic evidence of deep venous thrombosis involving any of the visualized deep venous structures of the bilateral thigh, as described above. <Electronically signed by Brandon Pierre > 08/25/20 4505
== END ==
LOC: M WHC 12:33
PROVIDERS: ATTEND Obstetrics & Gynecology
DX: M79.89 Other specified soft tissue disorders (principal)

== ENCOUNTER → 2020-09-22 | Outpatient (CLI) | payer OTHER ==
[2020-09-22 14:22] LABS: HEMATOCRIT 33.3 % (36.0-47.0); HEMOGLOBIN 11.4 g/dl (12.0-15.5); MEAN CORPUSCULAR HEMOGLOBIN 33.6 pg (27.0-33.0); MEAN CORPUSCULAR HGB CONC 34.2 g/dl (32.0-36.5); MEAN CORPUSCULAR VOLUME 98.2 fl (80.0-96.0); PLATELET COUNT, AUTOMATED 115 10^3/uL (150-450); RED BLOOD COUNT 3.39 10^6/uL (4.00-5.40)
[2020-09-22 18:35] LABS: HEMOGLOBIN A1c 4.3 %
[2020-09-22 20:47] LABS: FOLATE 17.7 NG/ML (>5.4); TOTAL 25(OH) VITAMIN D 26.7 NG/ML (30.0-100.0)
== END ==
LOC: M LAB 12:45
PROVIDERS: ATTEND Advanced Practice Midwife
DX: Z34.92 Encounter for supervision of normal pregnancy, unspecified, second trimester (principal); Z36.89 Encounter for other specified antenatal screening

== ENCOUNTER → 2020-10-02 | Outpatient (CLI) | payer OTHER ==
[~2020-10-02] MED LIST changes: +ARIP10TA32; -ARIP1TAB
--- NOTE | 2020-10-02 14:37 | REP ---
INDICATION: CERVICAL LENGTH. COMPARISON: None. TECHNIQUE: Only endovaginal imaging was performed to obtain an accurate cervical length measurement. FINDINGS: The cervix measures 4 cm in length. It is closed. IMPRESSION: As above <Electronically signed by Brandon Pierre > 10/02/20 9606
== END ==
LOC: M RAD 13:14
PROVIDERS: ATTEND Advanced Practice Midwife
DX: O26.852 Spotting complicating pregnancy, second trimester (principal)

== ENCOUNTER → 2020-10-27 | Outpatient (REF) | payer OTHER ==
[2020-10-27 18:04] LABS: APPEARANCE, URINE CLEAR (CLEAR); BACTERIA, URINE AUTO 1+ (NEGATIVE); BILIRUBIN, URINE AUTO NEGATIVE (NEGATIVE); BLOOD, URINE BLOOD NEGATIVE (NEGATIVE); COLOR, URINE YELLOW (YELLOW); GLUCOSE, URINE (UA) AUTO NEGATIVE (NEGATIVE); KETONE, URINE AUTO TRACE mg/dL (NEGATIVE); LEUKOCYTE ESTERASE, URINE AUTO NEGATIVE (NEGATIVE); MUCUS, URINE SMALL (NEGATIVE); NITRITE, URINE AUTO NEGATIVE (NEGATIVE); PROTEIN, URINE AUTO NEGATIVE (NEGATIVE); RBC, URINE AUTO 1 /HPF (0-3); SPECIFIC GRAVITY URINE AUTO 1.011 (1.002-1.035); SQUAMOUS EPITHELIAL CELL UR AU 1 /HPF (0-6); UROBILINOGEN, URINE AUTO 0.2 mg/dL (0.0-2.0); WBC, URINE AUTO 1 /HPF (0-3)
== END ==
LOC: M SFHCWAGY 17:09
PROVIDERS: ATTEND Advanced Practice Midwife
DX: O99.843 Bariatric surgery status complicating pregnancy, third trimester (principal)

== ENCOUNTER 2020-11-07 21:22 | Outpatient (CLI) | payer OTHER, MEDICAID ==
[~2020-11-07] VITALS: Ht 170.2 cm; Wt 84.7 kg
[2020-11-07 21:41] VITALS: BP 120/64
[2020-11-07] MEDS ORDERED: PRENTAB9 PO (21:59)
[2020-11-07 22:00] LABS: AMORPHOUS SEDIMENT SMALL (NEGATIVE); APPEARANCE, URINE HAZY (CLEAR); BACTERIA, URINE AUTO 1+ (NEGATIVE); BILIRUBIN, URINE AUTO NEGATIVE (NEGATIVE); BLOOD, URINE BLOOD NEGATIVE (NEGATIVE); COLOR, URINE YELLOW (YELLOW); GLUCOSE, URINE (UA) AUTO NEGATIVE (NEGATIVE); KETONE, URINE AUTO TRACE mg/dL (NEGATIVE); LEUKOCYTE ESTERASE, URINE AUTO NEGATIVE (NEGATIVE); MUCUS, URINE SMALL (NEGATIVE); NITRITE, URINE AUTO NEGATIVE (NEGATIVE); PROTEIN, URINE AUTO NEGATIVE (NEGATIVE); RBC, URINE AUTO 1 /HPF (0-3); SPECIFIC GRAVITY URINE AUTO 1.015 (1.002-1.035); SQUAMOUS EPITHELIAL CELL UR AU 3 /HPF (0-6); WBC, URINE AUTO 1 /HPF (0-3)
[2020-11-07 23:20] VITALS: BP 114/62
--- NOTE | 2020-11-07 23:31 | IPNPDOC ---
Text Note Date of Service The patient was seen on 11/07/20. NOTE Triage Note Yolette is a 30yo with SIUP at 32w5d presenting tonight for concern for ctx. She notes that she began having diarrhea episodes this morning around 5am. 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 She has had four or five episodes of diarrhea in total. Has been trying to stay hydrated. Around 5pm she started to notice cramping in her abdomen that would come and go, feels it into her back as well. No burning with urination. No abnormal vaginal discharge, no itching, no irritation, no odor. Feels good movement. No vaginal bleeding or loss of fluid. No fevers/chills. No n/v. No one else sick at home. Vitals wnl, afebrile Gen: WDWN, resting comfortably in bed Abdomen: soft, gravid, NTTP Extremities: no edema of BLE SSE: normal physiologic appearing discharge, cervix visually thick and high. swab obtained. SCE: internal os closed/thick/high TAUS: SIUP with cephalic presentation, +FCA, +FM, MVP 6.6cm, anterior placenta Cat I FHRT with +accels, -decels, mod brittny [place]: uterine irritability with NO ctx pattern Labs: urinalysis: negative nitrite and LE, 1 WBC, 1+ bacteria, 3 squam. spec grav 1.015. Trace ketones. RAMONE/WP: no trichomonas, no clue cells, no budding yeast/hyphae Assessment: Yolette is a 30yo with SIUP at 32w5d with NO e/o PTL or UTI or vaginal infection. Likely uterine irritability is resultant of diarrhea, which was probably caused by viral enteritis. Vitals wnl, exam wnl. Reassuring assessment. Plan: -safe for discharge home -emphasized patient needs to continue with good hydration. BRAT diet -Next visit is November 17, pt to call if any other concerns prior -Return precautions discussed Jovana Montanez MD VS,Brittany, I+O VS, Brittany, I+O Vital Signs Date Time Temp Pulse Resp B/P (MAP) Pulse Ox O2 Delivery O2 Flow Rate FiO2 11/07/20 21:41 98.6 70 18 120/64 (82) Jovana Montanez MD Nov 07, 2020 23:31
== END 2020-11-07 23:28 | disposition home or self-care (01) ==
LOC: M LDO 21:22
PROVIDERS: ATTEND Obstetrics & Gynecology
DX: O99.843 Bariatric surgery status complicating pregnancy, third trimester (principal); Z3A.32 32 weeks gestation of pregnancy; O26.893 Other specified pregnancy related conditions, third trimester; R25.2 Cramp and spasm; O99.613 Diseases of the digestive system complicating pregnancy, third trimester; K52.9 Noninfective gastroenteritis and colitis, unspecified; Z88.6 Allergy status to analgesic agent; Z79.899 Other long term (current) drug therapy

== ENCOUNTER 2020-11-16 21:35 | Outpatient (CLI) | payer OTHER, MEDICAID ==
[~2020-11-16] VITALS: Ht 170.2 cm; Wt 83.4 kg
[~2020-11-16 21:35] MED LIST changes: +PRENTAB9 PO
[2020-11-16 21:57] VITALS: BP 108/58
[2020-11-16] MEDS ORDERED: BENA25CA4 PO (22:00)
[2020-11-16] MEDS ORDERED: BICITRA 30ML SOLN UDC PO ONE (22:30)
--- NOTE | 2020-11-16 22:34 | IPNPDOC ---
Text Note Date of Service The patient was seen on 11/16/20. NOTE Subjective: Kentrell is a 30-year-old female who is a at 34 weeks gestation with an TANYA of 12/31/20. She receives her care from [facility] after transferring from [facility]. Her has been complicated by a history of gastric bypass She presents with complaints of upper abdominal pain that has been occurring for 2 weeks that is constant and gets more severe when she eats anything. Currently pain is throbbing ache. At times is feels like her upper abdomen is on fire and it wraps around to her back. She took Benadryl 50 mg tonight at 7 to see if it could help her sleep. She hasn't taken anything for pain management. Objective: VS, US and labs: see below FHR: 135, moderate variability, positive accelerations, no decelerations. Reyno: uterine irritability; 1 noted contractions General: alert and oriented. Patient does grimace, especially noted when fetus is very active (as heard on EFM). Respiratory: regular rate without use of accessory muscles Abdomen: gravid, soft to palpation, no tenderness with palpation. Upper abdomen palpated deep and no pain with palpation. SCE: FT/thick/high/soft/midposition/no show. Assessment: IUP at 34 weeks, upper abdominal pain, not in labor, history of gastric bypass in 2019, anemia, thrombocytopenia Plan: -Labs obtained -Abdominal US ordered -Bicitra given to see if it helped with "fire" feeling in her upper abdomen/stomach area Patient requested to go home due to her SO having to work in the morning. She has an appointment tomorrow in the office and encouraged to attend appointment. Reported pain hadn't improved much but she still wanted to go home. Discharged to home by nurse. Given her low H/H levels we will consider starting an iron transfusion for her and we will repeat her CBC in 2-3 weeks to check platelet levels. Reviewed access to care, kick count, labor signs and danger signs to report. VS,Fishbone, I+O VS, Fishbone, I+O Vital Signs Date Time Temp Pulse Resp B/P (MAP) Pulse Ox O2 Delivery O2 Flow Rate FiO2 11/16/20 21:57 97.4 84 18 108/58 (75) Item Value Date Time White Blood Count 7.0 10^3/uL 11/16/20 2232 Red Blood Count 3.01 10^6/uL L 11/16/20 223 Hemoglobin 9.9 g/dl L 11/16/202231 Hematocrit 28.8 % L 11/16/202231 Mean Corpuscular Volume 95.7 fl 11/16/202231 Mean Corpuscular Hemoglobin 32.9 pg 11/16/202231 Mean Corpuscular Hemoglobin Concent 34.4 g/dl 11/16/202231 Red Cell Distribution Width 12.9 % 11/16/202231 Platelet Count 115 10^3/uL L 11/16/202231 Item Value Date Time Sodium Level 142 MEQ/L 11/16/202231 Potassium Level 3.6 MEQ/L 11/16/202231 Chloride Level 112 MEQ/L H 11/16/202231 Carbon Dioxide Level 26 MEQ/L 11/16/202231 Anion Gap 4 MEQ/L L 11/16/202231 Blood Urea Nitrogen 6 MG/DL L 11/16/202231 Creatinine 0.46 MG/DL L 11/16/202231 Glomerular Filtration Rate > 60.0 11/16/202231 Fasting Glucose 66 MG/DL L 11/16/202 Calcium Level 7.9 MG/DL L 11/16/202231 Total Bilirubin 0.4 MG/DL 11/16/202231 Aspartate Amino Transf (AST/SGOT) 8 U/L 11/16/20 223 Alanine Aminotransferase (ALT/SGPT) 13 U/L 11/16/202231 Alkaline Phosphatase 61 U/L 11/16/202231 Total Protein 5.5 GM/DL L 11/16/202231 Albumin 2.7 GM/DL L 11/16/202231 Albumin/Globulin Ratio 1.0 L 11/16/202231 Lipase 108 U/L 11/16/202231 Amylase Level 39 U/L 11/16/202231 Item Value Date Time Urine Color YELLOW 11/16/202221 Urine Appearance HAZY 11/16/202221 Urine pH 6.0 UNITS 11/16/202221 Urine Specific [place] 1.006 11/16/202221 Urine Protein NEGATIVE mg/dL 11/16/202221 Urine Glucose (Auto)(UA) 2+ mg/dL H 11/16/202221 Urine Blood NEGATIVE 11/16/202221 Urine Ketones (Auto) NEGATIVE mg/dL 11/16/202221 Urine Nitrite NEGATIVE 11/16/202221 Urine Bilirubin NEGATIVE 11/16/202221 Urine Urobilinogen 0.2 mg/dL 11/16/202221 Urine Leukocyte Esterase (Auto) NEGATIVE 11/16/202221 Urine WBC (Auto) 2 /HPF 11/16/202221 Urine RBC (Auto) 1 /HPF 11/16/202221 Urine Hyaline Casts (Auto) 0 /LPF 11/16/202221 Urine Bacteria (Auto) 2+ H 11/16/202221 Urine Squamous Epithelial Cells 2 /HPF 11/16/202221 NAME: KENTRELL MONK DATE OF : 1990 BUSINESS NUMBER: [id number] AGE: 30 SEX: F REPORT #: [id number] ROOM: [facility] TECHNOLOGIST: GEO DOCTOR: CINDY PELLETIER CNM Ordered for Date&Time: 11/16/202226 cc: [~ rep ct ivnm] Service Date&Time: 11/16/202300 EXAMINATION REQUESTED: ABD COMPLETE US REASON FOR PATIENT VISIT: CRAMPING REASON FOR EXAMINATION: upper epigastric pain, , gastric bypass 2018 PROCEDURE INFORMATION: Exam: US Abdomen Complete Exam date and time: 11/16/2020 11:01 PM Age: 30 years old Clinical indication: Abdominal pain; Epigastric; ; Prior surgery; Surgery date: 6+ months; Additional info: Upper epigastric pain, , gastric bypass 2018 TECHNIQUE: Imaging protocol: Real-time ultrasound of the abdomen with image documentation. COMPARISON: Abdomen, limited US 12/22/2014 10:38 AM FINDINGS: Liver: Unremarkable. Gallbladder: Surgically absent. Common bile duct: No stones. No ductal dilatation. Pancreas: Suboptimally visualized. Right kidney: No mass. No definite stones. No hydronephrosis. Left kidney: No mass. No definite stones. No hydronephrosis. Spleen: Mildly enlarged. Aorta: Unremarkable as visualized. No aneurysm. Inferior vena cava: Unremarkable as visualized. IMPRESSION: No acute sonographic findings. Electronically signed by: Renzo Jiang On 11/17/2020 00:10:44 AM DD: RENZO JIANG MD 11/16/20 2301 DT: TAE 11/17/20 0010 CINDY PELLETIER CNM Nov 16, 2020 22:34
[2020-11-16 22:38] LABS: APPEARANCE, URINE HAZY (CLEAR); BACTERIA, URINE AUTO 2+ (NEGATIVE); BILIRUBIN, URINE AUTO NEGATIVE (NEGATIVE); BLOOD, URINE BLOOD NEGATIVE (NEGATIVE); COLOR, URINE YELLOW (YELLOW); GLUCOSE, URINE (UA) AUTO 2+ mg/dL (NEGATIVE); KETONE, URINE AUTO NEGATIVE (NEGATIVE); LEUKOCYTE ESTERASE, URINE AUTO NEGATIVE (NEGATIVE); NITRITE, URINE AUTO NEGATIVE (NEGATIVE); PROTEIN, URINE AUTO NEGATIVE (NEGATIVE); RBC, URINE AUTO 1 /HPF (0-3); SPECIFIC GRAVITY URINE AUTO 1.006 (1.002-1.035); SQUAMOUS EPITHELIAL CELL UR AU 2 /HPF (0-6); UROBILINOGEN, URINE AUTO 0.2 mg/dL (0.0-2.0); WBC, URINE AUTO 2 /HPF (0-3)
[2020-11-16 22:40] LABS: HEMATOCRIT 28.8 % (36.0-47.0); HEMOGLOBIN 9.9 g/dl (12.0-15.5); MEAN CORPUSCULAR HEMOGLOBIN 32.9 pg (27.0-33.0); MEAN CORPUSCULAR HGB CONC 34.4 g/dl (32.0-36.5); MEAN CORPUSCULAR VOLUME 95.7 fl (80.0-96.0); PLATELET COUNT, AUTOMATED 115 10^3/uL (150-450); RED BLOOD COUNT 3.01 10^6/uL (4.00-5.40)
[2020-11-16 23:01] LABS: ALBUMIN 2.7 GM/DL (3.2-5.2); ALT/SGPT 13 U/L (12-78); AMYLASE 39 U/L (25-115); BILIRUBIN,TOTAL 0.4 MG/DL (0.2-1.0); BLOOD UREA NITROGEN 6 MG/DL (7-18); CALCIUM LEVEL 7.9 MG/DL (8.5-10.1); CARBON DIOXIDE LEVEL 26 MEQ/L (21-32); CHLORIDE LEVEL 112 MEQ/L (98-107); CREATININE FOR GFR 0.46 MG/DL (0.55-1.30); GLOMERULAR FILTRATION RATE > 60.0 (>60); GLUCOSE, FASTING 66 MG/DL (70-100); LIPASE 108 U/L (73-393); POTASSIUM SERUM 3.6 MEQ/L (3.5-5.1); SODIUM LEVEL 142 MEQ/L (136-145); TOTAL PROTEIN 5.5 GM/DL (6.4-8.2)
--- NOTE | 2020-11-17 00:10 | REPVR ---
PROCEDURE INFORMATION: Exam: US Abdomen Complete Exam date and time: 11/16/2020 11:01 PM Age: 30 years old Clinical indication: Abdominal pain; Epigastric; ; Prior surgery; Surgery date: 6+ months; Additional info: Upper epigastric pain, , gastric bypass 2019 TECHNIQUE: Imaging protocol: Real-time ultrasound of the abdomen with image documentation. COMPARISON: Abdomen, limited US 12/22/2014 10:38 AM FINDINGS: Liver: Unremarkable. Gallbladder: Surgically absent. Common bile duct: No stones. No ductal dilatation. Pancreas: Suboptimally visualized. Right kidney: No mass. No definite stones. No hydronephrosis. Left kidney: No mass. No definite stones. No hydronephrosis. Spleen: Mildly enlarged. Aorta: Unremarkable as visualized. No aneurysm. Inferior vena cava: Unremarkable as visualized. IMPRESSION: No acute sonographic findings. Electronically signed by: Renzo Gary On 11/17/2020 00:10:44 AM
== END 2020-11-16 23:59 | disposition home or self-care (01) ==
LOC: M LDO 21:35
PROVIDERS: ATTEND Advanced Practice Midwife
DX: O26.893 Other specified pregnancy related conditions, third trimester (principal); R10.10 Upper abdominal pain, unspecified; O99.843 Bariatric surgery status complicating pregnancy, third trimester; Z3A.34 34 weeks gestation of pregnancy

== ENCOUNTER → 2020-11-17 | Outpatient (CLI) | payer OTHER ==
[~2020-11-17] MED LIST changes: +BENA25CA4 PO
== END ==
LOC: M WHC 11:52
PROVIDERS: ATTEND Advanced Practice Midwife
DX: Z34.93 Encounter for supervision of normal pregnancy, unspecified, third trimester (principal); K90.9 Intestinal malabsorption, unspecified; Z36.2 Encounter for other antenatal screening follow-up; Z53.9 Procedure and treatment not carried out, unspecified reason

== ENCOUNTER 2020-11-19 10:14 | Outpatient (CLI) | payer OTHER ==
[~2020-11-19] VITALS: Ht 170.2 cm; Wt 85.5 kg
[~2020-11-19 10:14] MED LIST changes: +IRON SUCROSE 500 MG in NS 250 ML OVER 4 HRS IV ONE
[2020-11-19 10:33] VITALS: BP 119/67
[2020-11-19 11:00] VITALS: BP 103/54
[2020-11-19 12:00] VITALS: BP 116/54
[2020-11-19 13:00] VITALS: BP 103/53
[2020-11-19 14:00] VITALS: BP 111/62
[2020-11-19 14:51] VITALS: BP 105/57
== END 2020-11-19 15:00 | disposition home or self-care (01) ==
LOC: M INFU 10:14
PROVIDERS: ATTEND Advanced Practice Midwife
DX: D64.9 Anemia, unspecified (principal); Z88.6 Allergy status to analgesic agent
CPT/HCPCS: 96365; 96366; J1756

== ENCOUNTER → 2020-11-26 | Outpatient (CLI) | payer OTHER ==
[~2020-11-26] MED LIST changes: -IRON SUCROSE 500 MG in NS 250 ML OVER 4 HRS IV ONE
--- NOTE | 2020-11-26 16:52 | REP ---
INDICATION: GROWTH/MALABSORPTION SYNDROME. TECHNIQUE: Transabdominal scanning FINDINGS: Multiple ultrasonographic images of the gravid uterus shows a single living intrauterine gestation in the cephalic presentation. Doppler interrogation of the heart shows a heart rate of 147 beats per minute. The placenta is anterior and not low-lying. The cervix measures 4.3 cm in length and is closed. The subjective amniotic fluid volume is within normal limits with a calculated amniotic fluid index is 15.6 with an expected range 7.9 to 24.9. Doppler interrogation of the umbilical artery shows an A\B ratio of 2.68. This is within the normal range. BPD: 8.8 cm 35 weeks 3 days HC: 32.5 cm 36 weeks 5 days AC: 31.9 cm 35 weeks 6 days FL: 6.8 cm 34 weeks 6 days The estimated weight is 2725 g which is at the 65th percentile for a 35 week 0 day gestational age IMPRESSION: Limited OB ultrasound showing a single living intrauterine gestation as described above an estimated gestational age of 35 weeks 4 days via composite criteria and an estimated date of delivery of 12/27/2020 by today's exam. <Electronically signed by Brandon Pierre > 11/26/20 [id number]
== END ==
LOC: M WHC 13:19
PROVIDERS: ATTEND Advanced Practice Midwife
DX: O99.613 Diseases of the digestive system complicating pregnancy, third trimester (principal); K90.9 Intestinal malabsorption, unspecified; Z3A.35 35 weeks gestation of pregnancy

== ENCOUNTER → 2020-12-02 | Outpatient (REF) | payer OTHER | LOC: M SFHCWAGY 10:03 | PROVIDERS: ATTEND Advanced Practice Midwife | DX: Z34.83 Encounter for supervision of other normal pregnancy, third trimester (principal); Z3A.35 35 weeks gestation of pregnancy ==

== ENCOUNTER → 2020-12-08 | Outpatient (CLI) | payer OTHER ==
[2020-12-08 14:03] LABS: BASO % 0.4 % (0.0-1.0); EOS # 0.1 10^3/uL (0.0-0.5); EOS % 0.9 % (0.0-3.0); HEMATOCRIT 33.1 % (36.0-47.0); HEMOGLOBIN 11.1 g/dl (12.0-15.5); LYMPH # 0.8 10^3/uL (1.5-5.0); LYMPH % 15.5 % (24.0-44.0); MEAN CORPUSCULAR HEMOGLOBIN 33.4 pg (27.0-33.0); MEAN CORPUSCULAR HGB CONC 33.5 g/dl (32.0-36.5); MEAN CORPUSCULAR VOLUME 99.7 fl (80.0-96.0); MONO # 0.3 10^3/uL (0.0-0.8); MONO % 6.1 % (2.0-8.0); NEUTROPHILS # 4.2 10^3/uL (1.5-8.5); NEUTROPHILS % 76.4 % (36.0-66.0); PLATELET COUNT, AUTOMATED 104 10^3/uL (150-450); RED BLOOD COUNT 3.32 10^6/uL (4.00-5.40); WHITE BLOOD COUNT 5.4 10^3/uL (4.0-10.0)
[2020-12-08 14:12] LABS: HEMATOCRIT 33.1 % (36.0-47.0)
[2020-12-08 14:36] LABS: ALBUMIN 2.6 GM/DL (3.2-5.2); ALT/SGPT 14 U/L (12-78); BILIRUBIN,TOTAL 0.5 MG/DL (0.2-1.0); BLOOD UREA NITROGEN 6 MG/DL (7-18); CALCIUM LEVEL 8.1 MG/DL (8.5-10.1); CARBON DIOXIDE LEVEL 26 MEQ/L (21-32); CHLORIDE LEVEL 108 MEQ/L (98-107); CREATININE FOR GFR 0.53 MG/DL (0.55-1.30); FERRITIN 38 NG/ML (8-252); GLOMERULAR FILTRATION RATE > 60.0 (>60); GLUCOSE, FASTING 74 MG/DL (70-100); IRON (FE) 70 UG/DL (50-170); PERCENT SATURATION 16.4 % (13.2-45.0); PHOSPHORUS LEVEL 3.1 MG/DL (2.5-4.9); POTASSIUM SERUM 3.9 MEQ/L (3.5-5.1); SODIUM LEVEL 139 MEQ/L (136-145); TOTAL IRON BINDING CAPACITY 427 UG/DL (250-450); TOTAL PROTEIN 5.4 GM/DL (6.4-8.2)
[2020-12-08 14:42] LABS: TOTAL 25(OH) VITAMIN D 29.1 NG/ML (30.0-100.0); VITAMIN B12 LEVEL 216 PG/ML (247-911)
[2020-12-08 14:56] LABS: HEMOGLOBIN A1c 4.6 %
== END ==
LOC: M PLALAB 09:52
PROVIDERS: ATTEND Physician Assistant Surgical
DX: K91.2 Postsurgical malabsorption, not elsewhere classified (principal); Z98.84 Bariatric surgery status; E55.9 Vitamin D deficiency, unspecified; Z86.39 Personal history of other endocrine, nutritional and metabolic disease

== ENCOUNTER → 2020-12-08 | Outpatient (CLI) | payer OTHER ==
[2020-12-08 14:04] LABS: HEMATOCRIT 33.7 % (36.0-47.0); HEMOGLOBIN 11.1 g/dl (12.0-15.5); MEAN CORPUSCULAR HEMOGLOBIN 32.8 pg (27.0-33.0); MEAN CORPUSCULAR HGB CONC 32.9 g/dl (32.0-36.5); MEAN CORPUSCULAR VOLUME 99.7 fl (80.0-96.0); PLATELET COUNT, AUTOMATED 107 10^3/uL (150-450); RED BLOOD COUNT 3.38 10^6/uL (4.00-5.40); WHITE BLOOD COUNT 5.3 10^3/uL (4.0-10.0)
[2020-12-08 14:35] LABS: ALBUMIN 2.6 GM/DL (3.2-5.2); BILIRUBIN,DIRECT 0.1 MG/DL (0.0-0.2); BILIRUBIN,TOTAL 0.5 MG/DL (0.2-1.0); TOTAL PROTEIN 5.5 GM/DL (6.4-8.2)
== END ==
LOC: M PLALAB 09:49
PROVIDERS: ATTEND Advanced Practice Midwife
DX: K90.9 Intestinal malabsorption, unspecified (principal)

== ENCOUNTER → 2020-12-28 | Outpatient (CLI) | payer OTHER ==
[~2020-12-28] MED LIST changes: +MI-A80CH PO; +PERCOCET PO; +ZOLO50TA PO
[2020-12-28 15:56] LABS: HEMATOCRIT 40.4 % (36.0-47.0); HEMOGLOBIN 13.4 g/dl (12.0-15.5); MEAN CORPUSCULAR HEMOGLOBIN 31.3 pg (27.0-33.0); MEAN CORPUSCULAR HGB CONC 33.2 g/dl (32.0-36.5); MEAN CORPUSCULAR VOLUME 94.4 fl (80.0-96.0); PLATELET COUNT, AUTOMATED 152 10^3/uL (150-450); RED BLOOD COUNT 4.28 10^6/uL (4.00-5.40); WHITE BLOOD COUNT 4.5 10^3/uL (4.0-10.0)
[2020-12-28 16:29] LABS: CREATININE,RANDOM URINE 29.4 MG/DL; TOTAL PROTEIN,RANDOM URINE 7.1 MG/DL (0.0-12.0)
[2020-12-28 16:32] LABS: ALT/SGPT 24 U/L (12-78); BILIRUBIN,TOTAL 0.4 MG/DL (0.2-1.0); GLOMERULAR FILTRATION RATE > 60.0 (>60); LDH LACTATE DEHYDROGENASE 178 U/L (84-246); URIC ACID 3.8 MG/DL (2.6-6.0)
== END ==
LOC: M PLALAB 11:05
PROVIDERS: ATTEND Obstetrics & Gynecology
DX: O12.05 Gestational edema, complicating the puerperium (principal)

== ENCOUNTER 2021-01-16 14:52 | Emergency (ER) | payer OTHER ==
[~2021-01-16] VITALS: Ht 170.2 cm; Wt 74.8 kg
[2021-01-16] MEDS ORDERED: COMBIVENT RESPIMAT 100-20MCG INHALER 4GM INH SCH (15:40)
[2021-01-16] MEDS ORDERED: dexameTHASONE 4 MG/ML 1ML VIAL (J1100 PER 1MG) IV ONE (15:40)
--- NOTE | 2021-01-16 15:58 | REP ---
INDICATION: Coronavirus workup COMPARISON: 04/08/2015 TECHNIQUE: Portable AP view of the chest FINDINGS: The mediastinum and cardiac silhouette are stable and within normal limits for portable technique. The lung thayer are clear without acute consolidation, effusion, or pneumothorax. Skeletal structures are intact. IMPRESSION: No acute cardiopulmonary process appreciated. <Electronically signed by Chuy Menendez > 01/16/21 [id number]
[2021-01-16 16:09] LABS: BASO % 0.5 % (0.0-1.0); EOS # 0.1 10^3/uL (0.0-0.5); EOS % 3.2 % (0.0-3.0); HEMATOCRIT 42.5 % (36.0-47.0); HEMOGLOBIN 14.6 g/dl (12.0-15.5); LYMPH # 0.9 10^3/uL (1.5-5.0); LYMPH % 41.6 % (24.0-44.0); MEAN CORPUSCULAR HEMOGLOBIN 31.1 pg (27.0-33.0); MEAN CORPUSCULAR HGB CONC 34.4 g/dl (32.0-36.5); MEAN CORPUSCULAR VOLUME 90.6 fl (80.0-96.0); MONO # 0.2 10^3/uL (0.0-0.8); NEUTROPHILS % 43.2 % (36.0-66.0); RED BLOOD COUNT 4.69 10^6/uL (4.00-5.40); WHITE BLOOD COUNT 2.2 10^3/uL (4.0-10.0)
[2021-01-16 16:36] LABS: PLATELET COUNT, AUTOMATED 83 10^3/uL (150-450)
[2021-01-16 16:41] LABS: ALBUMIN 3.5 GM/DL (3.2-5.2); ALT/SGPT 29 U/L (12-78); BILIRUBIN,TOTAL 0.3 MG/DL (0.2-1.0); BLOOD UREA NITROGEN 5 MG/DL (7-18); CALCIUM LEVEL 7.9 MG/DL (8.5-10.1); CARBON DIOXIDE LEVEL 28 MEQ/L (21-32); CHLORIDE LEVEL 108 MEQ/L (98-107); CK-MB VALUE MASS < 1.0 NG/ML (<3.6); CPK CREATINE PHOSPHOKINASE 48 U/L (26-192); CREATININE FOR GFR 0.55 MG/DL (0.55-1.30); FERRITIN 60 NG/ML (8-252); GLOMERULAR FILTRATION RATE > 60.0 (>60); GLUCOSE, FASTING 79 MG/DL (70-100); LDH LACTATE DEHYDROGENASE 170 U/L (84-246); MB/CK RELATIVE INDEX 2.08 (< OR =4); SODIUM LEVEL 141 MEQ/L (136-145); TOTAL PROTEIN 6.9 GM/DL (6.4-8.2); TROPONIN I < 0.02 NG/ML (< 0.10)
[2021-01-16] MEDS ORDERED: ISOVUE-370 76% 100ML VIAL As Ordered ONE (18:40)
--- NOTE | 2021-01-16 19:46 | ECGEPIP ---
[facility] - ED Test Date: 2021-01-16 Pat Name: KENTRELL MONK Department: Room: - Gender: Female [place]: : 1990 Requested By: Bernie Bonds Order Number: [id number] Reading MD: Bernie Bonds Measurements Intervals [place] Rate: 60 P: 40 UT: 134 QRS: 29 QRSD: 84 T: 43 QT: 430 QTc: 430 Interpretive Statements Normal sinus rhythm Nonspecific ST T wave changes cw 06/18/[address] T wave changes Electronically Signed on 01-16-2021 19:45:50 EDT by Bernie Bonds
--- NOTE | 2021-01-16 20:31 | REPVR ---
PROCEDURE INFORMATION: Exam: CTA Chest With Contrast Exam date and time: 01/16/2021 6:56 PM Age: 30 years old Clinical indication: Other: Covid + RO pe TECHNIQUE: Imaging protocol: Computed tomographic angiography of the chest with contrast. 3D rendering (Not supervised by radiologist): MIP and/or 3D reconstructed images were created by the technologist. Radiation optimization: All CT scans at this facility use at least one of these dose optimization techniques: automated exposure control; mA and/or kV adjustment per patient size (includes targeted exams where dose is matched to clinical indication); or iterative reconstruction. Contrast material: ISOVUE 370; Contrast volume: 75 ml; Contrast route: INTRAVENOUS (IV); COMPARISON: CT ANGIO CHEST 10/22/2018 7:08 PM FINDINGS: Pulmonary arteries: There are no pulmonary emboli. Aorta: There is no aortic dissection or aneurysm. Lungs: Unremarkable. No consolidation. No masses. Pleural spaces: Unremarkable. No pneumothorax. No pleural effusion. Heart: Unremarkable. No cardiomegaly. No pericardial effusion. Lymph nodes: Unremarkable. No enlarged lymph nodes. Gallbladder and bile ducts: Cholecystectomy. Spleen: Splenomegaly. Stomach and bowel: This patient is status post gastric bypass surgery. Bones/joints: Dextroscoliosis. Soft tissues: Unremarkable. IMPRESSION: 1. There is no aortic dissection or aneurysm. 2. There are no pulmonary emboli. 3. This patient is status post gastric bypass surgery. 4. No acute pulmonary parenchymal findings. Electronically signed by: Shen Durbin On 01/16/2021 20:30:36 PM
[2021-01-16 22:31] VITALS: BP 128/76
== END 2021-01-16 22:38 | disposition home or self-care (01) ==
LOC: M ED 14:52
DX: F41.9 Anxiety disorder, unspecified (principal); F31.9 Bipolar disorder, unspecified; F17.200 Nicotine dependence, unspecified, uncomplicated; Z98.84 Bariatric surgery status; Z79.899 Other long term (current) drug therapy; Z88.6 Allergy status to analgesic agent
CPT/HCPCS: 71045; 71275; 80053; 82550; 82553; 82728; 83605; 83615; 84145; 85025; 85049; 85055; 85384; 86140; 87040; 93005; 96374; 99284; J1100; Q9967

== ENCOUNTER 2021-06-03 18:40 | Emergency (ER) | payer OTHER, MEDICAID ==
[~2021-06-03 18:40] MED LIST changes: -LISI20TA20 PO; +LISI20TA37 PO; -OMEP-221; +OMEP40CA5
[2021-06-03] MEDS ORDERED: LAMI25TA (18:54)
[2021-06-03] MEDS ORDERED: XANA1TAB2 (18:54)
[2021-06-03] MEDS ORDERED: ATOM25CA (18:54)
[2021-06-03] MEDS ORDERED: NS 1,000 ML IV ONE (18:55)
[2021-06-03 19:14] LABS: BASO % 0.6 % (0.0-1.0); EOS # 0.2 10^3/uL (0.0-0.5); EOS % 3.7 % (0.0-3.0); HEMATOCRIT 39.3 % (36.0-47.0); HEMOGLOBIN 13.7 g/dl (12.0-15.5); LYMPH # 1.4 10^3/uL (1.5-5.0); LYMPH % 26.9 % (24.0-44.0); MEAN CORPUSCULAR HEMOGLOBIN 32.4 pg (27.0-33.0); MEAN CORPUSCULAR HGB CONC 34.9 g/dl (32.0-36.5); MEAN CORPUSCULAR VOLUME 92.9 fl (80.0-96.0); MONO # 0.4 10^3/uL (0.0-0.8); MONO % 7.5 % (2.0-8.0); NEUTROPHILS # 3.1 10^3/uL (1.5-8.5); NEUTROPHILS % 59.9 % (36.0-66.0); PLATELET COUNT, AUTOMATED 117 10^3/uL (150-450); RED BLOOD COUNT 4.23 10^6/uL (4.00-5.40); WHITE BLOOD COUNT 5.1 10^3/uL (4.0-10.0)
[2021-06-03 19:46] LABS: ACETAMINOPHEN LEVEL < 2.0 UG/ML (10.0-30.0); ALBUMIN 3.6 GM/DL (3.2-5.2); ALT/SGPT 26 U/L (12-78); BILIRUBIN,DIRECT 0.1 MG/DL (0.0-0.2); BILIRUBIN,TOTAL 0.4 MG/DL (0.2-1.0); BLOOD UREA NITROGEN 5 MG/DL (7-18); CALCIUM LEVEL 8.3 MG/DL (8.5-10.1); CARBON DIOXIDE LEVEL 29 MEQ/L (21-32); CHLORIDE LEVEL 110 MEQ/L (98-107); CREATININE FOR GFR 0.59 MG/DL (0.55-1.30); ETHYL ALCOHOL (ETHANOL) < 0.003 % (0.000-0.010); GLOMERULAR FILTRATION RATE > 60.0 (>60); GLUCOSE, FASTING 63 MG/DL (70-100); POTASSIUM SERUM 3.4 MEQ/L (3.5-5.1); SALICYLATE LEVEL 3.6 MG/DL (5.0-30.0); SODIUM LEVEL 143 MEQ/L (136-145); TOTAL PROTEIN 6.4 GM/DL (6.4-8.2)
[2021-06-03 20:57] VITALS: BP 116/62
[2021-06-03 21:43] LABS: AMPHETAMINES LEVEL URINE NEGATIVE (NEGATIVE); BARBITURATES URINE NEGATIVE (NEGATIVE); BENZODIAZEPINES URINE NEGATIVE (NEGATIVE); CANNABINOIDS URINE NEGATIVE (NEGATIVE); COCAINE METABOLITE URINE NEGATIVE (NEGATIVE); METHADONE URINE NEGATIVE (NEGATIVE); OPIATES URINE NEGATIVE (NEGATIVE); PHENCYCLIDINE URINE NEGATIVE (NEGATIVE)
== END 2021-06-03 21:22 | disposition home or self-care (01) ==
LOC: M ED 18:40
DX: R00.1 Bradycardia, unspecified (principal); R55 Syncope and collapse; F31.9 Bipolar disorder, unspecified; Z98.84 Bariatric surgery status; F17.200 Nicotine dependence, unspecified, uncomplicated; Z79.899 Other long term (current) drug therapy; Z88.6 Allergy status to analgesic agent

== ENCOUNTER 2021-07-19 14:42 | Emergency (ER) | payer OTHER, MEDICAID ==
[~2021-07-19] VITALS: Ht 170.2 cm; Wt 72.7 kg
[~2021-07-19 14:42] MED LIST changes: +ATOM25CA; +LAMI25TA; +XANA1TAB2
[2021-07-19 14:50] VITALS: BP 131/91
[2021-07-19 15:29] LABS: BASO % 0.8 % (0.0-1.0); EOS # 0.2 10^3/uL (0.0-0.5); EOS % 3.3 % (0.0-3.0); HEMATOCRIT 40.9 % (36.0-47.0); HEMOGLOBIN 14.2 g/dl (12.0-15.5); LYMPH # 1.5 10^3/uL (1.5-5.0); LYMPH % 29.5 % (24.0-44.0); MEAN CORPUSCULAR HEMOGLOBIN 31.8 pg (27.0-33.0); MEAN CORPUSCULAR HGB CONC 34.7 g/dl (32.0-36.5); MEAN CORPUSCULAR VOLUME 91.7 fl (80.0-96.0); MONO # 0.4 10^3/uL (0.0-0.8); MONO % 7.5 % (2.0-8.0); NEUTROPHILS # 3.1 10^3/uL (1.5-8.5); NEUTROPHILS % 58.7 % (36.0-66.0); PLATELET COUNT, AUTOMATED 147 10^3/uL (150-450); RED BLOOD COUNT 4.46 10^6/uL (4.00-5.40); WHITE BLOOD COUNT 5.2 10^3/uL (4.0-10.0)
[2021-07-19 15:59] LABS: HCG, SERUM QUALITATIVE NEGATIVE (NEGATIVE)
[2021-07-19 16:01] LABS: ALBUMIN 3.7 GM/DL (3.2-5.2); ALT/SGPT 31 U/L (12-78); BILIRUBIN,DIRECT 0.2 MG/DL (0.0-0.2); BILIRUBIN,TOTAL 0.7 MG/DL (0.2-1.0); BLOOD UREA NITROGEN 11 MG/DL (7-18); CALCIUM LEVEL 8.9 MG/DL (8.5-10.1); CARBON DIOXIDE LEVEL 24 MEQ/L (21-32); CHLORIDE LEVEL 112 MEQ/L (98-107); CREATININE FOR GFR 0.78 MG/DL (0.55-1.30); GLOMERULAR FILTRATION RATE > 60.0 (>60); GLUCOSE, FASTING 109 MG/DL (70-100); LIPASE 94 U/L (73-393); POTASSIUM SERUM 3.9 MEQ/L (3.5-5.1); SODIUM LEVEL 142 MEQ/L (136-145); TOTAL PROTEIN 6.5 GM/DL (6.4-8.2)
[2021-07-19] MEDS ORDERED: KETOROLAC 30 MG/ML 1ML VIAL IV ONE (16:40)
[2021-07-19] MEDS ORDERED: PANTOPRAZOLE 40MG VIAL IV ONE (16:40)
[2021-07-19] MEDS ORDERED: ONDANSETRON 4MG/2ML VIAL IV ONE (16:40)
[2021-07-19] MEDS ORDERED: ISOVUE-370 76% 100ML VIAL As Ordered ONE (16:49)
[2021-07-19] MEDS ORDERED: PRED20TA PO (19:03)
[2021-07-19] MEDS ORDERED: AMOX875T2 PO (19:03)
[2021-07-19] MEDS ORDERED: TRAM50TA2 PO (19:03)
== END 2021-07-19 19:14 | disposition home or self-care (01) ==
LOC: M ED 14:42
DX: K65.4 Sclerosing mesenteritis (principal); D73.4 Cyst of spleen; I10 Essential (primary) hypertension; K21.9 Gastro-esophageal reflux disease without esophagitis; M54.2 Cervicalgia; M54.9 Dorsalgia, unspecified; F41.9 Anxiety disorder, unspecified; F32.9 Major depressive disorder, single episode, unspecified; Z98.84 Bariatric surgery status; F17.200 Nicotine dependence, unspecified, uncomplicated; Z79.899 Other long term (current) drug therapy; Z88.6 Allergy status to analgesic agent
CPT/HCPCS: 74177; 80048; 80076; 81001; 83690; 84703; 85025; 96374; 96375; 99284; C9113; J1885; J2405; Q9967

== ENCOUNTER → 2021-07-27 | Outpatient (CLI) | payer OTHER, MEDICAID ==
[~2021-07-27] MED LIST changes: +AMOX875T2 PO; +TRAM50TA2 PO
== END ==
LOC: M WUC 09:55 → M SOG 09:55
PROVIDERS: ATTEND Orthopaedic Surgery
DX: M54.50 Low back pain, unspecified (principal); M47.896 Other spondylosis, lumbar region

== ENCOUNTER → 2022-06-08 | Outpatient (REF) | payer OTHER, MEDICAID ==
[2022-06-08 16:48] LABS: BASO % 0.5 % (0.0-1.0); EOS % 0.7 % (0.0-3.0); HEMATOCRIT 35.1 % (36.0-47.0); HEMOGLOBIN 11.2 g/dl (12.0-15.5); LYMPH % 21.7 % (24.0-44.0); MEAN CORPUSCULAR HEMOGLOBIN 28.7 pg (27.0-33.0); MEAN CORPUSCULAR HGB CONC 31.9 g/dl (32.0-36.5); MONO # 0.4 10^3/uL (0.0-0.8); MONO % 9.5 % (2.0-8.0); NEUTROPHILS % 67.4 % (36.0-66.0); PLATELET COUNT, AUTOMATED 128 10^3/uL (150-450); WHITE BLOOD COUNT 4.4 10^3/uL (4.0-10.0)
[2022-06-08 17:11] LABS: FERRITIN 2.4 NG/ML (7.3-270.7)
[2022-06-08 17:12] LABS: FOLATE 19.9 NG/ML (>5.4); VITAMIN B12 LEVEL 309 PG/ML (211-911)
[2022-06-08 17:13] LABS: ALBUMIN 3.7 G/DL (3.2-5.2); ALKALINE PHOSPHATASE 82 U/L (46-116); ALT/SGPT 15 U/L (7.0-40); AST/SGOT 17 U/L (<34); BILIRUBIN,TOTAL 0.5 MG/DL (0.3-1.2); BLOOD UREA NITROGEN 10 MG/DL (9-23); CALCIUM LEVEL 8.4 MG/DL (8.5-10.1); CARBON DIOXIDE LEVEL 28 MMOL/L (20-31); CHLORIDE LEVEL 110 MMOL/L (98-107); CREATININE FOR GFR 0.61 MG/DL (0.55-1.30); GLOMERULAR FILTRATION RATE > 60.0 (>60); GLUCOSE, FASTING 66 MG/DL (60-100); IRON (FE) 36 UG/DL (50-170); PERCENT SATURATION 8.7 % (13.2-45.0); POTASSIUM SERUM 3.8 MMOL/L (3.5-5.1); SODIUM LEVEL 142 MMOL/L (136-145); TOTAL IRON BINDING CAPACITY 414 UG/DL (250-425); TOTAL PROTEIN 6.3 G/DL (5.7-8.2)
[2022-06-08 17:15] LABS: THYROID STIMULATING HORMONE 1.726 uIU/ML (0.55-4.78)
[2022-06-08 17:36] LABS: HIV 1&2 SCREEN CENTAUR NEGATIVE (NEGATIVE)
== END ==
LOC: M LAB REF 16:15
PROVIDERS: ATTEND Nurse Practitioner Family
DX: D50.9 Iron deficiency anemia, unspecified (principal); Z98.84 Bariatric surgery status; Z11.9 Encounter for screening for infectious and parasitic diseases, unspecified; R53.83 Other fatigue

== ENCOUNTER → 2022-06-22 | Outpatient (REF) | payer OTHER ==
[2022-06-22 18:13] LABS: BASO % 0.7 % (0.0-1.0); EOS # 0.1 10^3/uL (0.0-0.5); EOS % 1.1 % (0.0-3.0); HEMATOCRIT 33.9 % (36.0-47.0); HEMOGLOBIN 10.7 g/dl (12.0-15.5); LYMPH # 1.3 10^3/uL (1.5-5.0); LYMPH % 29.2 % (24.0-44.0); MEAN CORPUSCULAR HEMOGLOBIN 27.6 pg (27.0-33.0); MEAN CORPUSCULAR HGB CONC 31.6 g/dl (32.0-36.5); MEAN CORPUSCULAR VOLUME 87.6 fl (80.0-96.0); MONO # 0.5 10^3/uL (0.0-0.8); NEUTROPHILS # 2.6 10^3/uL (1.5-8.5); NEUTROPHILS % 58.6 % (36.0-66.0); PLATELET COUNT, AUTOMATED 130 10^3/uL (150-450); RED BLOOD COUNT 3.87 10^6/uL (4.00-5.40); WHITE BLOOD COUNT 4.5 10^3/uL (4.0-10.0)
== END ==
LOC: M LAB REF 16:44
PROVIDERS: ATTEND Nurse Practitioner Family
DX: D50.9 Iron deficiency anemia, unspecified (principal)

== ENCOUNTER → 2022-07-27 | Outpatient (CLI) | payer OTHER ==
[~2022-07-27] MED LIST changes: +CARB1TAB20; +LEMB5TAB
== END ==
LOC: M WHC 10:28
PROVIDERS: ATTEND Obstetrics & Gynecology
DX: N93.9 Abnormal uterine and vaginal bleeding, unspecified (principal)

== ENCOUNTER → 2022-09-14 | Outpatient (REF) | payer MEDICAID, OTHER ==
[~2022-09-14] MED LIST changes: -CARB1TAB20; +CARB1TAB20 PO; -LEMB5TAB; +LEMB5TAB PO; -XANA1TAB2; +XANA1TAB2 PO
== END ==
LOC: M SFHCWAGY 17:57
PROVIDERS: ATTEND Obstetrics & Gynecology
DX: Z12.4 Encounter for screening for malignant neoplasm of cervix (principal)

== ENCOUNTER → 2022-10-19 | Outpatient (CLI) | payer OTHER ==
[~2022-10-19] MED LIST changes: +ALPR1TAB3 PO; +DICY-61 PO; -DICY10CA13 PO
[2022-10-19 16:47] LABS: HEPATITIS B SURFACE ANTIGEN NEGATIVE (NEGATIVE)
[2022-10-19 17:09] LABS: HEPATITIS B CORE ANTIBODY IGM NEGATIVE (NEGATIVE)
== END ==
LOC: M PLALAB 13:27
PROVIDERS: ATTEND Obstetrics & Gynecology
DX: Z11.3 Encounter for screening for infections with a predominantly sexual mode of transmission (principal)

== ENCOUNTER → 2022-11-28 | Outpatient (REF) | LOC: M PLAIMG 13:14 | PROVIDERS: ATTEND Internal Medicine | DX: R52 Pain, unspecified (principal) ==

== ENCOUNTER → 2022-12-13 | Outpatient (REF) | payer OTHER, MEDICAID ==
[2022-12-13 21:20] LABS: GC DNA AMPLIFICATION NEGATIVE (NEGATIVE)
== END ==
LOC: M SFHCWAGY 17:26
PROVIDERS: ATTEND Obstetrics & Gynecology
DX: Z86.19 Personal history of other infectious and parasitic diseases (principal)

== ENCOUNTER → 2023-01-12 | Outpatient (CLI) | payer OTHER | LOC: M PLAIMG 07:33 | PROVIDERS: ATTEND Orthopaedic Surgery | DX: M51.26 Other intervertebral disc displacement, lumbar region (principal); M47.816 Spondylosis without myelopathy or radiculopathy, lumbar region; M48.061 Spinal stenosis, lumbar region without neurogenic claudication ==

== ENCOUNTER → 2023-06-22 | Outpatient (REF) ==
[~2023-06-22] MED LIST changes: -EFFE150C2 PO; +EFFE150C3 PO
== END ==
LOC: M PLAIMG 12:31
PROVIDERS: ATTEND Internal Medicine
DX: R52 Pain, unspecified (principal); M41.9 Scoliosis, unspecified

== ENCOUNTER → 2023-07-04 | Outpatient (REF) | payer OTHER, MEDICAID ==
[2023-07-04 12:51] LABS: APPEARANCE, URINE CLEAR (CLEAR); BACTERIA, URINE AUTO NEGATIVE (NEGATIVE); BILIRUBIN, URINE AUTO NEGATIVE (NEGATIVE); BLOOD, URINE BLOOD NEGATIVE (NEGATIVE); COLOR, URINE STRAW (YELLOW); GLUCOSE, URINE (UA) AUTO NEGATIVE (NEGATIVE); KETONE, URINE AUTO NEGATIVE (NEGATIVE); LEUKOCYTE ESTERASE, URINE AUTO NEGATIVE (NEGATIVE); NITRITE, URINE AUTO NEGATIVE (NEGATIVE); PROTEIN, URINE AUTO NEGATIVE (NEGATIVE); RBC, URINE AUTO 0 /HPF (0-3); SPECIFIC GRAVITY URINE AUTO 1.004 (1.002-1.035); SQUAMOUS EPITHELIAL CELL UR AU 0 /HPF (0-6); UROBILINOGEN, URINE AUTO 0.2 mg/dL (0.0-2.0); WBC, URINE AUTO 0 /HPF (0-3)
[2023-07-04 13:45] LABS: Trichomonas vaginalis (AMP) NOT DETECTED (NEGATIVE)
[2023-07-04 14:08] LABS: GC DNA AMPLIFICATION NEGATIVE (NEGATIVE)
== END ==
LOC: M LAB REF 12:17
PROVIDERS: ATTEND Physician Assistant Medical
DX: N39.0 Urinary tract infection, site not specified (principal); Z20.2 Contact with and (suspected) exposure to infections with a predominantly sexual mode of transmission; B95.7 Other staphylococcus as the cause of diseases classified elsewhere

== ENCOUNTER 2023-07-28 09:39 | Outpatient (CLI) | payer OTHER ==
[2023-07-28 10:45] VITALS: BP 113/73; O2SAT 100
[2023-07-28] MEDS: IRON SUCROSE 300 MG in NS 250 ML OVER 90 MIN. IV ONE (10:51)
[2023-07-28] MEDS ORDERED: IRON SUCROSE 200 MG in NS 100 ML OVER 1 HR IV ONE (11:00)
[2023-07-28 12:35] VITALS: BP 115/76; O2SAT 100
== END 2023-07-28 12:40 | disposition home or self-care (01) ==
LOC: M INFU 09:39
PROVIDERS: ATTEND Nurse Practitioner
DX: D50.9 Iron deficiency anemia, unspecified (principal); Z88.6 Allergy status to analgesic agent
CPT/HCPCS: 96365; 96366; J1756

== ENCOUNTER → 2023-07-30 | Outpatient (REF) | payer OTHER ==
[2023-07-30 18:50] LABS: APPEARANCE, URINE CLEAR (CLEAR); BACTERIA, URINE AUTO NEGATIVE (NEGATIVE); BILIRUBIN, URINE AUTO NEGATIVE (NEGATIVE); BLOOD, URINE BLOOD NEGATIVE (NEGATIVE); COLOR, URINE YELLOW (YELLOW); GLUCOSE, URINE (UA) AUTO NEGATIVE (NEGATIVE); KETONE, URINE AUTO NEGATIVE (NEGATIVE); LEUKOCYTE ESTERASE, URINE AUTO TRACE (NEGATIVE); NITRITE, URINE AUTO NEGATIVE (NEGATIVE); PROTEIN, URINE AUTO NEGATIVE (NEGATIVE); RBC, URINE AUTO 1 /HPF (0-3); SQUAMOUS EPITHELIAL CELL UR AU 1 /HPF (0-6); WBC, URINE AUTO 13 /HPF (0-3)
[2023-07-30 21:15] LABS: GC DNA AMPLIFICATION NEGATIVE (NEGATIVE)
[2023-07-30 21:16] LABS: Trichomonas vaginalis (AMP) POSITIVE (NEGATIVE)
== END ==
LOC: M LAB REF 18:31
PROVIDERS: ATTEND Physician Assistant Medical
DX: N89.8 Other specified noninflammatory disorders of vagina (principal)

== ENCOUNTER → 2023-08-15 | Outpatient (REF) | payer OTHER, MEDICAID ==
[2023-08-15 14:22] LABS: CHOLESTEROL RISK RATIO 3.2 (<5); HDL CHOLESTEROL 54.3 MG/DL (>40); LDL CHOLESTEROL 106.9 MG/DL (<100); MAGNESIUM LEVEL 1.9 MG/DL (1.8-2.4); NON-HDL-C 119.7 MG/DL; THYROID STIMULATING HORMONE 1.197 uIU/ML (0.55-4.78); TOTAL 25(OH) VITAMIN D 9.1 NG/ML (20.0-100.0)
[2023-08-15 14:24] LABS: HEMOGLOBIN A1c 4.4 % (4.0-6.0)
== END ==
LOC: M LAB REF 12:46
PROVIDERS: ATTEND Nurse Practitioner Family
DX: E66.3 Overweight (principal); E55.9 Vitamin D deficiency, unspecified

== ENCOUNTER 2023-09-08 14:24 | Inpatient (IN) | payer MEDICAID, OTHER ==
[~2023-09-08] VITALS: Ht 170.2 cm; Wt 85.2 kg
[2023-09-08] MEDS ORDERED: TIZA2TA PO (15:04)
[2023-09-08] MEDS ORDERED: CYCL-707 PO (15:04)
[2023-09-08] MEDS ORDERED: TIZA10TA PO (15:04)
[2023-09-08] MEDS ORDERED: BIO FREEZE TOP (15:04)
[2023-09-08] MEDS ORDERED: CARB20TA PO ×2 (15:04→21:28)
[2023-09-08] MEDS: diazePAM 5MG TABLET PO ONE (15:58)
[2023-09-08] MEDS: KETOROLAC 60MG 2ML VIAL IM ONE (16:01)
[2023-09-08 17:49] LABS: HEMATOCRIT 39.7 % (36.0-47.0); HEMOGLOBIN 13.9 g/dl (12.0-15.5); MEAN CORPUSCULAR HEMOGLOBIN 32.3 pg (27.0-33.0); MEAN CORPUSCULAR VOLUME 92.3 fl (80.0-96.0); PLATELET COUNT, AUTOMATED 118 10^3/uL (150-450)
[2023-09-08 18:14] LABS: BLOOD UREA NITROGEN 11 MG/DL (9-23); CALCIUM LEVEL 8.2 MG/DL (8.5-10.1); CARBON DIOXIDE LEVEL 27 MMOL/L (20-31); CHLORIDE LEVEL 108 MMOL/L (98-107); CREATININE FOR GFR 0.61 MG/DL (0.55-1.30); GLOMERULAR FILTRATION RATE > 60.0 (>60); GLUCOSE, FASTING 79 MG/DL (60-100); SODIUM LEVEL 140 MMOL/L (136-145)
[2023-09-08] MEDS ORDERED: MORPHINE 4 MG/ML 1ML VIAL IV ONE (18:45)
[2023-09-08] MEDS: MORPHINE 10 MG/ML 1ML VIAL IM ONE (19:21)
[2023-09-08] MEDS ORDERED: ONDANSETRON 4MG 2ML VIAL IV PRN (20:10)
[2023-09-08] MEDS: PANTOPRAZOLE 40MG VIAL IV ONE (20:23)
[2023-09-08 20:44] LABS: MAGNESIUM LEVEL 1.9 MG/DL (1.8-2.4)
[2023-09-08] MEDS ORDERED: CYCLOBENZAPRINE 10MG TABLET PO SCH (21:00)
[2023-09-08] MEDS: DOCUSATE SODIUM 100MG CAPSULE PO SCH (21:00)
[2023-09-08] MEDS ORDERED: traMADol 50 MG TAB PO SCH (21:00)
[2023-09-08] MEDS ORDERED: PREGABALIN 75 MG CAP(LYRICA) PO SCH (21:00)
[2023-09-08] MEDS: LIDOCAINE 5% (LIDODERM) PATCH TD ONE (21:09)
[2023-09-08] MEDS: ALPRAZolam 0.5 MG TAB PO ONE (21:09)
[2023-09-08] MEDS ORDERED: carBAMazepine 200MG TABLET PO SCH (21:15)
[2023-09-08] MEDS ORDERED: ICY5PAD2 TOP (21:28)
[2023-09-08] MEDS ORDERED: ERGO500029 PO (21:28)
[2023-09-08] MEDS ORDERED: HOME MED LIST COMPLETE! XX SCH ×2 (21:30→23:20)
[2023-09-08 22:00] VITALS: BP 110/61; TEMP 97.8; O2SAT 97
[2023-09-08] MEDS: ACETAMINOPHEN 500 MG TAB PO SCH (22:15)
[2023-09-08] MEDS: MORPHINE 4 MG/ML 1ML VIAL IV PRN (22:16)
[2023-09-08] MEDS: carBAMazepine 100MG *1/2* TABLET PO SCH (23:30)
[2023-09-08] MEDS: LEMBOREXANT 5 MG PO SCH (23:51)
[2023-09-08] MEDS: PREGABALIN 25 MG CAP (LYRICA) PO SCH (23:52)
[2023-09-08] MEDS: traMADol 50 MG TAB PO SCH (23:52)
[2023-09-08] MEDS: ENOXAPARIN 40MG/0.4ML SYRINGE (J1650 PER 10MG) SC SCH (23:53)
[2023-09-09] MEDS: ALPRAZolam 0.5 MG TAB PO PRN (01:36)
[2023-09-09 05:53] VITALS: BP 136/92; TEMP 97.6; O2SAT 97
[2023-09-09] MEDS: METHOCARBAMOL 1,000 MG/10 ML VIAL IM ONE (06:56)
[2023-09-09 07:46] LABS: HEMATOCRIT 41.5 % (36.0-47.0); HEMOGLOBIN 14.4 g/dl (12.0-15.5); MEAN CORPUSCULAR HGB CONC 34.7 g/dl (32.0-36.5); MEAN CORPUSCULAR VOLUME 92.2 fl (80.0-96.0); PLATELET COUNT, AUTOMATED 106 10^3/uL (150-450); WHITE BLOOD COUNT 4.6 10^3/uL (4.0-10.0)
[2023-09-09 08:08] LABS: BLOOD UREA NITROGEN 13 MG/DL (9-23); CALCIUM LEVEL 8.7 MG/DL (8.5-10.1); CARBON DIOXIDE LEVEL 27 MMOL/L (20-31); CHLORIDE LEVEL 105 MMOL/L (98-107); CREATININE FOR GFR 0.59 MG/DL (0.55-1.30); GLOMERULAR FILTRATION RATE > 60.0 (>60); GLUCOSE, FASTING 87 MG/DL (60-100); MAGNESIUM LEVEL 1.8 MG/DL (1.8-2.4); POTASSIUM SERUM 3.5 MMOL/L (3.5-5.1); SODIUM LEVEL 138 MMOL/L (136-145)
[2023-09-09] MEDS ORDERED: ENOXAPARIN 40MG/0.4ML SYRINGE (J1650 PER 10MG) SC SCH (09:00)
[2023-09-09] MEDS: methylPREDNISolone 40MG 1ML VIAL IV SCH (09:00)
[2023-09-09] MEDS ORDERED: traMADol 50 MG TAB PO SCH (09:00)
[2023-09-09] MEDS: PANTOPRAZOLE 40MG TAB (PROTONIX) PO SCH (09:05)
[2023-09-09 10:12] VITALS: BP 128/77; TEMP 98.1; O2SAT 96
[2023-09-09] MEDS ORDERED: KETOROLAC TROMETHAMINE 10 MG TAB PO PRN (10:30)
[2023-09-09] MEDS: methocarbamoL 500 MG TAB PO PRN (11:10)
[2023-09-09] MEDS: CYCLOBENZAPRINE 10MG TABLET PO PRN (13:54)
[2023-09-09 14:09] VITALS: BP 123/76; TEMP 97.5; O2SAT 98
[2023-09-09] MEDS ORDERED: KETOROLAC 30 MG/ML 1ML VIAL IV ONE (15:00)
[2023-09-09] MEDS: KETOROLAC 30 MG/ML 1ML VIAL IV ONE (16:15)
[2023-09-09 18:13] VITALS: BP 120/71; TEMP 98.4; O2SAT 97
[2023-09-09] MEDS: PREGABALIN 25 MG CAP (LYRICA) PO SCH (20:02)
[2023-09-09 21:51] VITALS: BP 91/59; TEMP 98.2; O2SAT 98
[2023-09-09 22:01] VITALS: BP 90/60
[2023-09-10 03:02] VITALS: BP 91/47; TEMP 97.7; O2SAT 96
[2023-09-10 05:33] VITALS: BP 104/76
[2023-09-10 05:42] VITALS: BP 109/63; TEMP 97.7; O2SAT 99
[2023-09-10] MEDS ORDERED: KETOROLAC 30 MG/ML 1ML VIAL IV ONE (06:00)
[2023-09-10 06:03] LABS: BASO % 0.4 % (0.0-1.0); EOS # 0.1 10^3/uL (0.0-0.5); EOS % 0.9 % (0.0-3.0); HEMOGLOBIN 13.3 g/dl (12.0-15.5); LYMPH # 1.7 10^3/uL (1.5-5.0); LYMPH % 29.8 % (24.0-44.0); MEAN CORPUSCULAR HEMOGLOBIN 32.2 pg (27.0-33.0); MONO # 0.5 10^3/uL (0.0-0.8); MONO % 8.6 % (2.0-8.0); NEUTROPHILS # 3.4 10^3/uL (1.5-8.5); NEUTROPHILS % 60.1 % (36.0-66.0); PLATELET COUNT, AUTOMATED 110 10^3/uL (150-450); RED BLOOD COUNT 4.13 10^6/uL (4.00-5.40); WHITE BLOOD COUNT 5.6 10^3/uL (4.0-10.0)
[2023-09-10 06:31] LABS: ALBUMIN 3.3 G/DL (3.2-5.2); ALKALINE PHOSPHATASE 64 U/L (46-116); ALT/SGPT 23 U/L (7.0-40); AST/SGOT 8 U/L (<34); BILIRUBIN,TOTAL 0.7 MG/DL (0.3-1.2); BLOOD UREA NITROGEN 13 MG/DL (9-23); CALCIUM LEVEL 8.9 MG/DL (8.5-10.1); CARBON DIOXIDE LEVEL 27 MMOL/L (20-31); CHLORIDE LEVEL 109 MMOL/L (98-107); CREATININE FOR GFR 0.66 MG/DL (0.55-1.30); GLOMERULAR FILTRATION RATE > 60.0 (>60); GLUCOSE, FASTING 82 MG/DL (60-100); MAGNESIUM LEVEL 1.8 MG/DL (1.8-2.4); POTASSIUM SERUM 4.9 MMOL/L (3.5-5.1); SODIUM LEVEL 140 MMOL/L (136-145); TOTAL PROTEIN 5.5 G/DL (5.7-8.2)
[2023-09-10] MEDS: LIDOCAINE 5% (LIDODERM) PATCH TD SCH (08:41)
[2023-09-10 10:00] VITALS: BP 118/73; TEMP 97.5; O2SAT 97
[2023-09-10] MEDS ORDERED: PANT40TA29 PO (10:53)
[2023-09-10] MEDS ORDERED: PREG25CA PO (10:53)
[2023-09-10] MEDS ORDERED: METH-1164 PO (10:53)
[2023-09-10] MEDS ORDERED: MORP-69 PO (10:53)
[2023-09-10] MEDS ORDERED: LIDO5TD TD (10:53)
[2023-09-10] MEDS ORDERED: OXYC1TAB23 PO (13:07)
[2023-09-11] MEDS ORDERED: PREG50CA PO (12:22)
== END 2023-09-10 12:20 | disposition home or self-care (01) | DRG 347 ==
LOC: M ED 14:24 → M ED INP 20:00 → M MS5PR 21:46
PROVIDERS: ADMIT Preventive Medicine Undersea and Hyperbaric Medicine; ATTEND Preventive Medicine Undersea and Hyperbaric Medicine
DX: M54.17 Radiculopathy, lumbosacral region (principal); F31.9 Bipolar disorder, unspecified; F41.9 Anxiety disorder, unspecified; Z98.84 Bariatric surgery status; Z87.891 Personal history of nicotine dependence; M54.41 Lumbago with sciatica, right side; Z79.899 Other long term (current) drug therapy; Z88.6 Allergy status to analgesic agent

== ENCOUNTER → 2023-09-26 | Outpatient (REF) | payer OTHER, MEDICAID ==
[~2023-09-26] MED LIST changes: +BIO FREEZE TOP; +CARB20TA PO; +CYCL-707 PO; +ERGO500029 PO; +ICY5PAD2 TOP; +LIDO5TD TD; +MORP-69 PO; +ONDA-282; -ONDA4TAB6; +OXYC1TAB23 PO; +PANT40TA29 PO; +PREG25CA PO; +PREG50CA PO; +TIZA10TA PO; +TIZA2TA PO
[2023-09-26 18:07] LABS: C REACTIVE PROTEIN QUANTITATIV < 0.40 MG/DL (<1.0)
[2023-09-26 18:08] LABS: ALBUMIN 3.8 G/DL (3.2-5.2); ALKALINE PHOSPHATASE 75 U/L (46-116); ALT/SGPT 33 U/L (7.0-40); AST/SGOT 13 U/L (<34); BILIRUBIN,TOTAL 0.8 MG/DL (0.3-1.2); BLOOD UREA NITROGEN 7 MG/DL (9-23); CALCIUM LEVEL 8.7 MG/DL (8.5-10.1); CARBON DIOXIDE LEVEL 29 MMOL/L (20-31); CHLORIDE LEVEL 105 MMOL/L (98-107); CREATININE FOR GFR 0.58 MG/DL (0.55-1.30); GLOMERULAR FILTRATION RATE > 60.0 (>60); GLUCOSE, FASTING 77 MG/DL (60-100); POTASSIUM SERUM 4.4 MMOL/L (3.5-5.1); SODIUM LEVEL 139 MMOL/L (136-145); TOTAL PROTEIN 6.2 G/DL (5.7-8.2)
[2023-09-26 18:09] LABS: RHEUMATOID FACTOR QUANT 6.7 IU/ML (<14)
[2023-09-26 18:16] LABS: BASO % 0.6 % (0.0-1.0); EOS # 0.1 10^3/uL (0.0-0.5); EOS % 1.5 % (0.0-3.0); HEMATOCRIT 41.3 % (36.0-47.0); HEMOGLOBIN 14.4 g/dl (12.0-15.5); LYMPH # 1.3 10^3/uL (1.5-5.0); LYMPH % 27.6 % (24.0-44.0); MEAN CORPUSCULAR HGB CONC 34.9 g/dl (32.0-36.5); MEAN CORPUSCULAR VOLUME 91.8 fl (80.0-96.0); MONO # 0.4 10^3/uL (0.0-0.8); MONO % 8.6 % (2.0-8.0); NEUTROPHILS # 2.8 10^3/uL (1.5-8.5); NEUTROPHILS % 61.5 % (36.0-66.0); PLATELET COUNT, AUTOMATED 154 10^3/uL (150-450); WHITE BLOOD COUNT 4.6 10^3/uL (4.0-10.0)
[2023-09-26 18:27] LABS: ERYTHROCYTE SEDIMENTATION RATE 4 mm/hr (0-20)
== END ==
LOC: M LAB REF 16:31
PROVIDERS: ATTEND Nurse Practitioner Family
DX: M12.9 Arthropathy, unspecified (principal)

== ENCOUNTER → 2023-12-20 | Outpatient (REF) | payer OTHER, MEDICAID ==
[~2023-12-20] MED LIST changes: +GABA-1490 PO; -GABA600T4 PO
[2023-12-20 12:42] LABS: APPEARANCE, URINE HAZY (CLEAR); BACTERIA, URINE AUTO NEGATIVE (NEGATIVE); BILIRUBIN, URINE AUTO NEGATIVE (NEGATIVE); BLOOD, URINE BLOOD NEGATIVE (NEGATIVE); COLOR, URINE YELLOW (YELLOW); GLUCOSE, URINE (UA) AUTO NEGATIVE (NEGATIVE); KETONE, URINE AUTO NEGATIVE (NEGATIVE); LEUKOCYTE ESTERASE, URINE AUTO NEGATIVE (NEGATIVE); MUCUS, URINE LARGE (NEGATIVE); NITRITE, URINE AUTO POSITIVE (NEGATIVE); PROTEIN, URINE AUTO NEGATIVE (NEGATIVE); RBC, URINE AUTO 2 /HPF (0-3); SPECIFIC GRAVITY URINE AUTO 1.018 (1.002-1.035); SQUAMOUS EPITHELIAL CELL UR AU 3 /HPF (0-6); WBC, URINE AUTO 3 /HPF (0-3)
[2023-12-20 13:59] LABS: Trichomonas vaginalis (AMP) NOT DETECTED (NEGATIVE)
[2023-12-20 14:23] LABS: GC DNA AMPLIFICATION NEGATIVE (NEGATIVE)
== END ==
LOC: M LAB REF 12:29
PROVIDERS: ATTEND Physician Assistant Medical
DX: N39.0 Urinary tract infection, site not specified (principal)

== ENCOUNTER → 2023-12-26 | Outpatient (REF) | payer OTHER, MEDICAID | LOC: M LAB REF 12:15 | PROVIDERS: ATTEND Physician Assistant Medical | DX: R50.9 Fever, unspecified (principal) ==

== ENCOUNTER → 2024-03-05 | Outpatient (REF) | payer OTHER, MEDICAID ==
[~2024-03-05] MED LIST changes: -ARIP10TA32; +ARIP10TA63; +CYCL5TAB4; +DULO1CAP5; +DULO1CAP6
[2024-03-05 17:13] LABS: APPEARANCE, URINE CLEAR (CLEAR); BACTERIA, URINE AUTO NEGATIVE (NEGATIVE); BILIRUBIN, URINE AUTO NEGATIVE (NEGATIVE); BLOOD, URINE BLOOD NEGATIVE (NEGATIVE); COLOR, URINE YELLOW (YELLOW); GLUCOSE, URINE (UA) AUTO NEGATIVE (NEGATIVE); KETONE, URINE AUTO NEGATIVE (NEGATIVE); LEUKOCYTE ESTERASE, URINE AUTO NEGATIVE (NEGATIVE); MUCUS, URINE SMALL (NEGATIVE); NITRITE, URINE AUTO NEGATIVE (NEGATIVE); PROTEIN, URINE AUTO NEGATIVE (NEGATIVE); RBC, URINE AUTO 0 /HPF (0-3); SPECIFIC GRAVITY URINE AUTO 1.008 (1.002-1.035); SQUAMOUS EPITHELIAL CELL UR AU 2 /HPF (0-6); WBC, URINE AUTO 1 /HPF (0-3)
[2024-03-05 17:58] LABS: Trichomonas vaginalis (AMP) NOT DETECTED (NEGATIVE)
[2024-03-05 18:21] LABS: GC DNA AMPLIFICATION NEGATIVE (NEGATIVE)
== END ==
LOC: M LAB REF 16:13
PROVIDERS: ATTEND Physician Assistant Medical
DX: N39.0 Urinary tract infection, site not specified (principal); Z11.3 Encounter for screening for infections with a predominantly sexual mode of transmission

== ENCOUNTER → 2024-04-16 | Outpatient (REF) | payer OTHER ==
[2024-04-16 17:08] LABS: AMORPHOUS SEDIMENT SMALL (NEGATIVE); APPEARANCE, URINE CLEAR (CLEAR); BACTERIA, URINE AUTO NEGATIVE (NEGATIVE); BILIRUBIN, URINE AUTO NEGATIVE (NEGATIVE); BLOOD, URINE BLOOD NEGATIVE (NEGATIVE); COLOR, URINE YELLOW (YELLOW); GLUCOSE, URINE (UA) AUTO NEGATIVE (NEGATIVE); KETONE, URINE AUTO NEGATIVE (NEGATIVE); LEUKOCYTE ESTERASE, URINE AUTO 2+ (NEGATIVE); MUCUS, URINE SMALL (NEGATIVE); NITRITE, URINE AUTO NEGATIVE (NEGATIVE); PROTEIN, URINE AUTO NEGATIVE (NEGATIVE); RBC, URINE AUTO 1 /HPF (0-3); SPECIFIC GRAVITY URINE AUTO 1.006 (1.002-1.035); SQUAMOUS EPITHELIAL CELL UR AU 1 /HPF (0-6); UROBILINOGEN, URINE AUTO 0.2 mg/dL (0.0-2.0); WBC, URINE AUTO 15 /HPF (0-3)
[2024-04-16 17:53] LABS: Trichomonas vaginalis (AMP) NOT DETECTED (NEGATIVE)
[2024-04-16 18:16] LABS: GC DNA AMPLIFICATION NEGATIVE (NEGATIVE)
== END ==
LOC: M LAB REF 16:17
PROVIDERS: ATTEND Physician Assistant Medical
DX: N39.0 Urinary tract infection, site not specified (principal)

== ENCOUNTER → 2024-06-12 | Outpatient (CLI) | payer OTHER | LOC: M EKG 10:42 | PROVIDERS: ATTEND Physician Assistant | DX: R00.2 Palpitations (principal); Z53.9 Procedure and treatment not carried out, unspecified reason ==

== ENCOUNTER → 2024-10-14 | Outpatient (REF) | payer OTHER ==
[~2024-10-14] MED LIST changes: -PREG25CA PO; +PREG25CA63 PO; -PREG50CA PO; +PREG50CA87 PO
[2024-10-14 12:23] LABS: APPEARANCE, URINE CLEAR (CLEAR); BACTERIA, URINE AUTO 1+ (NEGATIVE); BILIRUBIN, URINE AUTO NEGATIVE (NEGATIVE); BLOOD, URINE BLOOD NEGATIVE (NEGATIVE); GLUCOSE, URINE (UA) AUTO NEGATIVE (NEGATIVE); KETONE, URINE AUTO NEGATIVE (NEGATIVE); LEUKOCYTE ESTERASE, URINE AUTO NEGATIVE (NEGATIVE); NITRITE, URINE AUTO NEGATIVE (NEGATIVE); PROTEIN, URINE AUTO NEGATIVE (NEGATIVE); RBC, URINE AUTO 1 /HPF (0-3); SPECIFIC GRAVITY URINE AUTO 1.004 (1.002-1.035); SQUAMOUS EPITHELIAL CELL UR AU 3 /HPF (0-6); UROBILINOGEN, URINE AUTO 0.2 mg/dL (0.0-2.0); WBC, URINE AUTO 1 /HPF (0-3)
[2024-10-14 13:31] LABS: Trichomonas vaginalis (AMP) NOT DETECTED (NEGATIVE)
[2024-10-14 13:54] LABS: GC DNA AMPLIFICATION NEGATIVE (NEGATIVE)
== END ==
LOC: M LAB REF 11:51
PROVIDERS: ATTEND Physician Assistant Medical
DX: Z20.2 Contact with and (suspected) exposure to infections with a predominantly sexual mode of transmission (principal)

== ENCOUNTER → 2024-11-09 | Outpatient (REF) | payer OTHER ==
[~2024-11-09] MED LIST changes: +TOPI-256
[2024-11-09 17:35] LABS: APPEARANCE, URINE CLEAR (CLEAR); BACTERIA, URINE AUTO NEGATIVE (NEGATIVE); BILIRUBIN, URINE AUTO NEGATIVE (NEGATIVE); BLOOD, URINE BLOOD NEGATIVE (NEGATIVE); GLUCOSE, URINE (UA) AUTO NEGATIVE (NEGATIVE); KETONE, URINE AUTO NEGATIVE (NEGATIVE); LEUKOCYTE ESTERASE, URINE AUTO NEGATIVE (NEGATIVE); NITRITE, URINE AUTO NEGATIVE (NEGATIVE); PROTEIN, URINE AUTO NEGATIVE (NEGATIVE); RBC, URINE AUTO 0 /HPF (0-3); SPECIFIC GRAVITY URINE AUTO 1.001 (1.002-1.035); SQUAMOUS EPITHELIAL CELL UR AU 0 /HPF (0-6); UROBILINOGEN, URINE AUTO 0.2 mg/dL (0.0-2.0); WBC, URINE AUTO 0 /HPF (0-3)
[2024-11-09 19:50] LABS: Trichomonas vaginalis (AMP) NOT DETECTED (NEGATIVE)
[2024-11-09 20:13] LABS: GC DNA AMPLIFICATION NEGATIVE (NEGATIVE)
== END ==
LOC: M LAB REF 17:17
DX: N39.0 Urinary tract infection, site not specified (principal); Z20.2 Contact with and (suspected) exposure to infections with a predominantly sexual mode of transmission

== ENCOUNTER → 2024-11-28 | Outpatient (CLI) | payer OTHER | LOC: M CARPUL 12:19 | PROVIDERS: ATTEND Physician Assistant | DX: R94.31 Abnormal electrocardiogram [ECG] [EKG] (principal) ==

== ENCOUNTER → 2024-12-18 | Outpatient (CLI) | payer OTHER ==
[~2024-12-18] MED LIST changes: +CARB-19 PO; -CARB1TAB20 PO
== END ==
LOC: M RAD 12:39
PROVIDERS: ATTEND Physician Assistant
DX: R60.0 Localized edema (principal)

== ENCOUNTER → 2024-12-18 | Outpatient (CLI) | payer OTHER | LOC: M EKG 10:38 | PROVIDERS: ATTEND Physician Assistant | DX: R00.1 Bradycardia, unspecified (principal); M25.48 Effusion, other site ==

== ENCOUNTER → 2024-12-18 | Outpatient (CLI) | payer OTHER ==
[~2024-12-18] MED LIST changes: -CARB-19 PO; +CARB1TAB20 PO
== END ==
LOC: M RAD 10:40
PROVIDERS: ATTEND Internal Medicine
DX: M25.48 Effusion, other site (principal)

== ENCOUNTER → 2025-01-10 | Outpatient (CLI) | payer OTHER ==
[~2025-01-10] MED LIST changes: +CARB-19 PO; -CARB1TAB20 PO
== END ==
LOC: M RAD 15:50
PROVIDERS: ATTEND Nurse Practitioner Family
DX: M54.16 Radiculopathy, lumbar region (principal); M43.26 Fusion of spine, lumbar region

== ENCOUNTER → 2025-03-26 | Outpatient (REF) | payer OTHER ==
[~2025-03-26] MED LIST changes: +BACL10TA2; +BUSP5TA
[2025-03-26 13:19] LABS: APPEARANCE, URINE CLEAR (CLEAR); BACTERIA, URINE AUTO NEGATIVE (NEGATIVE); BILIRUBIN, URINE AUTO NEGATIVE (NEGATIVE); BLOOD, URINE BLOOD NEGATIVE (NEGATIVE); GLUCOSE, URINE (UA) AUTO NEGATIVE (NEGATIVE); KETONE, URINE AUTO NEGATIVE (NEGATIVE); LEUKOCYTE ESTERASE, URINE AUTO NEGATIVE (NEGATIVE); MUCUS, URINE SMALL (NEGATIVE); NITRITE, URINE AUTO NEGATIVE (NEGATIVE); PROTEIN, URINE AUTO NEGATIVE (NEGATIVE); RBC, URINE AUTO 2 /HPF (0-3); SPECIFIC GRAVITY URINE AUTO 1.002 (1.002-1.035); SQUAMOUS EPITHELIAL CELL UR AU 1 /HPF (0-6); UROBILINOGEN, URINE AUTO 0.2 mg/dL (0.0-2.0); WBC, URINE AUTO 1 /HPF (0-3)
[2025-03-26 13:37] LABS: Trichomonas vaginalis (AMP) NOT DETECTED (NEGATIVE)
[2025-03-26 14:01] LABS: GC DNA AMPLIFICATION NEGATIVE (NEGATIVE)
== END ==
LOC: M LAB REF 11:53
PROVIDERS: ATTEND Physician Assistant
DX: Z20.2 Contact with and (suspected) exposure to infections with a predominantly sexual mode of transmission (principal); N39.0 Urinary tract infection, site not specified

== ENCOUNTER → 2025-04-01 | Outpatient (REF) | payer OTHER | LOC: M LAB REF 17:07 | PROVIDERS: ATTEND Physician Assistant | DX: R30.0 Dysuria (principal) ==